=== PATIENT | male | born 1950 | race Caucasian/White ===

== ENCOUNTER 2021-12-15 12:19 | Observation (INO) | payer MEDICARE, OTHER ==
--- NOTE | 2021-12-15 12:35 | XRAY ---
Indication: Right-sided weakness. Slurred speech. Multiple contiguous axial images obtained through the head without contrast. Comparison: None Age-appropriate global atrophy. No acute intracranial hemorrhage, abnormal extra-axial fluid collection, or mass effect. Fourth ventricle is midline without hydrocephalus. Gusman-white matter differentiation preserved. Bony calvarium intact. Visualized paranasal sinuses and mastoid air cells are clear. Impression: Negative CT head without contrast exam.
--- NOTE | 2021-12-15 12:48 | XRAY ---
Indication: Weakness. Comparison: None Portable chest demonstrates normal heart and lungs with incidental right apical calcified granuloma. Bony thorax intact with mild osteopenia and degenerative changes.
[2021-12-15 13:13] LABS: Absolute Neutrophil Ct (ANC) 4.86 (1.4-6.9); Basophil (Absolute #) 0.02 (0-0.4); Eosinophil % 0.5 % (0.00-5.0); Eosinophil (Absolute #) 0.04 (0-0.5); Hematocrit 43.4 % (42-50); Hemoglobin 14.8 gm/dl (12.5-18.0); Lymphocyte (Absolute #) 1.81 (1.0-4.6); Lymphocytes % 24.6 % (24.0-44.0); Mean Cell Volume 88.6 fl (78-100); Mean Corpuscular Hemoglobin 30.2 pg (26-32); Mean Corpuscular Hgb Concent. 34.1 g/dl (32-36); Mean Platelet Volume 9.2 fl (7.5-11.0); Monocyte (Absolute #) 0.64 (0.0-1.3); Monocytes % 8.7 % (0.0-12.0); Neutrophil % 65.9 % (36.0-66.0); PROTIME 11.8 SECONDS (9.4-12.5); Platelet Count 202 K/mm3 (150-450); Red Cell Distribution Width 13.4 % (11.5-14.0); White Blood Count 7.4 K/mm3 (4.0-10.5)
[2021-12-15 13:16] LABS: ALBUMIN 4.6 g/dL (3.5-5.0); ALKALINE PHOSPHATASE 41 U/L (38-126); ANION GAP 12.3 MEQ/L (5-15); BLOOD UREA NITROGEN 18 mg/dL (9-20); CHLORIDE 109 mmol/L (98-107); Calcium 9.6 mg/dL (8.4-10.2); Carbon Dioxide 22 mmol/L (22-30); Creatinine 1 0.95 mg/dL (0.66-1.25); EST GLOMERULAR FILTRATION RATE > 60.0 ML/MIN; Glucose 133 mg/dL (74-106); Potassium 3.8 mmol/L (3.5-5.1); SGOT/AST 31 U/L (17-59); SGPT/ALT 32 U/L (0-50); SODIUM 139 mmol/L (137-145); Total Protein 7.4 g/dL (6.3-8.2)
--- NOTE | 2021-12-15 14:19 | ERPHSYRPT ---
- History of Present Illness Time Seen by Provider: 12/15/21 12:35 Source: patient Exam Limitations: no limitations Patient Subjective Stated Complaint: Weakness-right sided Triage Nursing Assessment: Patient brought into ED via EMS and transferred self to bed. Patient A+O X3. Patient's skin pink, warm and dry. Patient states 30 min prior he was walking at work when his speech became slurred and he had right sided weakness to right leg and arm. Patient states he thought his blood sugar was low and drank a coke. Upon EMS arriving BS 120. Patient's right sided weakness and slurred speach has resolved. Patient denies pain or discomfort. Physician History: Patient is a 71-year-old diabetic who presents with 30-minute history of weakness in the right arm and leg with slurred speech. He attempted to raise his blood sugar without it being checked and was improving by the time EMS got there who found a blood sugar of 120 he is doing better on arrival. Timing/Duration: today Severity: moderate Character of Deficits: new weakness, impaired swallowing Baseline/Normal Cognition: alert oriented x 3 Current Cognition: alert oriented x 3 Baseline Gait: walks w/o assistance Associated Symptoms: denies symptoms Allergies/Adverse Reactions: No Known Drug Allergies Allergy (Verified 12/15/21 12:29) Home Medications: Benazepril HCl [Lotensin] 5 mg PO DAILY 07/20/17 [History] Lovastatin 20 mg PO DAILY 07/20/17 [History] Metformin HCl 500 mg [Glucophage 500 MG] 500 mg PO BIDWM 07/20/17 [History] Hx Influenza Vaccination/Date Given: No Hx Pneumococcal Vaccination/Date Given: No Immunizations Up to Date: Yes Travel Risk - International Travel Have you traveled outside of the country in past 3 weeks: No - Coronavirus Screening Are you exhibiting any of the following symptoms?: No Close contact with a COVID-19 positive Pt in past 14-21 Days: No - Vaccine Status Have you recieved a Covid-19 vaccination: Yes 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: [employer] - Review of Systems Constitutional: No Fever, No Chills Eyes: No Symptoms Ears, Nose, & Throat: No Symptoms Respiratory: No Cough, No Dyspnea Cardiac: No Chest Pain, No Edema, No Syncope Abdominal/Gastrointestinal: No Abdominal Pain, No Nausea, No Vomiting, No Diarrhea Genitourinary Symptoms: No Dysuria Musculoskeletal: No Back Pain, No Neck Pain Skin: No Rash Neurological: Speech Changes, No Dizziness, No Focal Weakness, No Sensory Changes Psychological: No Symptoms Endocrine: No Symptoms All Other Systems: Reviewed and Negative - Past Medical History Pertinent Past Medical History: Yes Neurological History: No Pertinent History ENT History: No Pertinent History Cardiac History: High Cholesterol, Hypertension Respiratory History: No Pertinent History Endocrine Medical History: Diabetes Type II Musculoskeletal History: Osteoarthritis GI Medical History: No Pertinent History, GERD History: No Pertinent History Psycho-Social History: No Pertinent History Male Reproductive Disorders: No Pertinent History - Past Surgical History Past Surgical History: No Neuro Surgical History: No Pertinent History Cardiac: No Pertinent History Respiratory: No Pertinent History Gastrointestinal: No Pertinent History Genitourinary: No Pertinent History Musculoskeletal: No Pertinent History Male Surgical History: No Pertinent History - Social History Smoking Status: Current every day smoker How long have you smoked: years Exposure to second hand smoke: Yes Drug Use: none Patient Lives Alone: No - Nursing Vital Signs Nursing Vital Signs: Initial Vital Signs Temperature 98.7 F 12/15/21 12:30 Pulse Rate 51 L 12/15/21 12:30 Respiratory Rate 18 12/15/21 12:30 Blood Pressure 173/79 12/15/21 12:30 O2 Sat by Pulse Oximetry 95 12/15/21 12:30 Pain Scale Pain Intensity 0 - Roberto Coma Scale Best Eye Response ([place]): (4) open spontaneously Best Verbal Response (Roberto): (5) oriented Best Motor Response (Roberto): (6) obeys commands Roberto Total: 15 - Physical Exam General Appearance: no apparent distress, alert Eye Exam: bilateral eye: PERRL, EOMI Ears, Nose, Throat Exam: normal ENT inspection, moist mucous membranes Neck Exam: normal inspection, non-tender, supple Respiratory: normal breath sounds, lungs clear, airway intact, No respiratory distress Cardiovascular: regular rate/rhythm, No edema Gastrointestinal: soft, No tenderness, No distention Back Exam: normal inspection Extremity Exam: normal inspection, No pedal edema 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, 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 Coordination/Gait: normal finger to nose, normal gait Motor/Sensory: no motor deficit, no sensory deficit Skin Exam: normal color, warm, dry, No rash SpO2 Interpretation: normal SpO2: 93 O2 Delivery: Room Air - Course Nursing assessment & vital signs reviewed: Yes EKG Interpreted by Me: RATE (80), Sinus Rhythm (With multiple PVCs), NORMAL AXIS, Non-specific ST Changes - Radiology Exams Chest X-ray Interpretation: Reviewed by me - CT Exams Head CT Interpretation: Other (No bleeding no shift) Ordered Tests: Active Orders 24 hr Category Date Time Status Clean Catch Urine Specimen STAT Care 12/15/21 12:23 Active EKG-ER Only STAT Care 12/15/21 12:23 Active IV Insertion STAT Care 12/15/21 12:23 Active NPO (ED) STAT Care 12/15/21 12:23 Active NPO (ED) STAT Care 12/15/21 12:56 Active Tele-Health Consult ROUTINE Cons 12/15/21 12:56 Active CHEST 1 VIEW (PORTABLE) Stat Exams 12/15/21 12:24 Completed HEAD WITHOUT CONTRAST [CT] Stat Exams 12/15/21 12:21 Completed CBC W DIFF Stat Lab 12/15/21 12:56 Completed CMP Stat Lab 12/15/21 12:56 Completed ETHYL ALCOHOL Stat Lab 12/15/21 12:56 Completed PT INR [PROTIME WITH INR] Stat Lab 12/15/21 12:56 Completed TROPONIN Q3H Lab 12/15/21 12:30 Ordered TROPONIN Q3H Lab 12/15/21 15:30 Ordered TROPONIN Q3H Lab 12/15/21 18:30 Ordered TROPONIN Q3H Lab 12/15/21 21:30 Ordered TROPONIN Q3H Lab 12/16/21 00:30 Ordered UA W/RFX UR CULTURE Stat Lab 12/15/21 13:59 Ordered Urine Triage Profile Stat Lab 12/15/21 12:33 Ordered Lab/Rad Data: Laboratory Result Diagrams 12/15/21 12:56 12/15/21 12:56 Laboratory Results 12/15/21 12/15/21 12/15/21 Range/Units 12:56 12:56 12:56 WBC (4.0-10.5) K/mm3 RBC (4.1-5.6) M/mm3 Hgb (12.5-18.0) gm/dl Hct (42-50) % MCV (78-100) fl MCH (26-32) pg MCHC (32-36) g/dl RDW (11.5-14.0) % Plt Count (150-450) K/mm3 MPV (7.5-11.0) fl Gran % (36.0-66.0) % Eos # (Auto) (0-0.5) Absolute Lymphs (auto) (1.0-4.6) Absolute Monos (auto) (0.0-1.3) Lymphocytes % (24.0-44.0) % Monocytes % (0.0-12.0) % Eosinophils % (0.00-5.0) % Basophils % (0.0-0.4) % Absolute Granulocytes (1.4-6.9) Basophils # (0-0.4) PT 11.8 (9.4-12.5) SECONDS INR 1.00 (0.8-3.0) Sodium 139 (137-145) mmol/L Potassium 3.8 (3.5-5.1) mmol/L Chloride 109 H (98-107) mmol/L Carbon Dioxide 22 (22-30) mmol/L Anion Gap 12.3 (5-15) MEQ/L BUN 18 (9-20) mg/dL Creatinine 0.95 (0.66-1.25) mg/dL Estimated GFR > 60.0 ML/MIN Glucose 133 H (74-106) mg/dL Calcium 9.6 (8.4-10.2) mg/dL Total Bilirubin 0.60 (0.2-1.3) mg/dL AST 31 (17-59) U/L ALT 32 (0-50) U/L Alkaline Phosphatase 41 (38-126) U/L Serum Total Protein 7.4 (6.3-8.2) g/dL Albumin 4.6 (3.5-5.0) g/dL Ethyl Alcohol < 10 (0-10) mg/dL 12/15/21 Range/Units 12:56 WBC 7.4 (4.0-10.5) K/mm3 RBC 4.90 (4.1-5.6) M/mm3 Hgb 14.8 (12.5-18.0) gm/dl Hct 43.4 (42-50) % MCV 88.6 (78-100) fl MCH 30.2 (26-32) pg MCHC 34.1 (32-36) g/dl RDW 13.4 (11.5-14.0) % Plt Count 202 (150-450) K/mm3 MPV 9.2 (7.5-11.0) fl Gran % 65.9 (36.0-66.0) % Eos # (Auto) 0.04 (0-0.5) Absolute Lymphs (auto) 1.81 (1.0-4.6) Absolute Monos (auto) 0.64 (0.0-1.3) Lymphocytes % 24.6 (24.0-44.0) % Monocytes % 8.7 (0.0-12.0) % Eosinophils % 0.5 (0.00-5.0) % Basophils % 0.3 (0.0-0.4) % Absolute Granulocytes 4.86 (1.4-6.9) Basophils # 0.02 (0-0.4) PT (9.4-12.5) SECONDS INR (0.8-3.0) Sodium (137-145) mmol/L Potassium (3.5-5.1) mmol/L Chloride (98-107) mmol/L Carbon Dioxide (22-30) mmol/L Anion Gap (5-15) MEQ/L BUN (9-20) mg/dL Creatinine (0.66-1.25) mg/dL Estimated GFR ML/MIN Glucose (74-106) mg/dL Calcium (8.4-10.2) mg/dL Total Bilirubin (0.2-1.3) mg/dL AST (17-59) U/L ALT (0-50) U/L Alkaline Phosphatase (38-126) U/L Serum Total Protein (6.3-8.2) g/dL Albumin (3.5-5.0) g/dL Ethyl Alcohol (0-10) mg/dL - Progress Progress: improved Progress Note: 12/15/21 14:20 Patient is essentially was normal by the time the exam was done in the ER we did consult teleneurology they recommended an inpatient admission and work-up for TIA. Discussed with Dr.: Alesia Seymour - Departure Departure Disposition: In-patient Admission Clinical Impression: TIA (transient ischemic attack) Condition: Stable Critical Care Time: Yes Critical Care Time(excluding separately billable procedures): Critical 30-74 mins Referrals: ROXANNA STILL MD [Primary Care Provider] - Follow up/PCP as directed
[2021-12-15] MEDS ORDERED: PLAVIX 75 MG Tablet PO ONE (14:31)
[2021-12-15] MEDS ORDERED: PLAVIX 75 MG Tablet ONE (14:34)
[2021-12-15] MEDS: Sodium Chloride 0.9% 1000 ML 1,000 ML IV SCH ×2 (14:36→18:37)
[2021-12-15] MEDS ORDERED: BABY ASPIRIN 81 MG CHEW ONE (14:37)
[2021-12-15] MEDS ORDERED: BABY ASPIRIN 81 MG CHEW PO ONE (14:39)
[2021-12-15] MEDS ORDERED: Zofran 4 MG/2 ML VIAL IV ONE (15:01)
[2021-12-15] MEDS ORDERED: Zofran 4 MG/2 ML VIAL ONE (15:01)
[2021-12-15 15:14] LABS: INFLUENZA A NEGATIVE (NEGATIVE); INFLUENZA B NEGATIVE (NEGATIVE); RESPIRATORY SYNCTIAL VIRUS NEGATIVE (Negative); SARS-CoV-2 Xpert Express NEGATIVE (NEGATIVE)
[2021-12-15 15:19] LABS: Bacteria RARE /HPF (NEGATIVE); WBC 0-2 /HPF (0-5)
[2021-12-15 15:29] LABS: Appearance CLEAR (CLEAR); Bilirubin NEGATIVE (NEGATIVE); Glucose 100 mg/dL (NEGATIVE); Ketones NEGATIVE (NEGATIVE)
[2021-12-15 15:30] LABS: Nitrite NEGATIVE (NEGATIVE); Ph 6.5 (5-6); Protein,Urine Dip NEGATIVE (Negative); RBC NEGATIVE Ery/ul (0-5); Urobilinogen 0.2 mg/dL (0-1)
[2021-12-15 15:35] LABS: Dipstick done @ ? MAIN LAB
--- NOTE | 2021-12-15 16:27 | XRAY ---
Indication: Right sided weakness. Slurred speech. Conventional contrast enhanced CTA neck performed using 100 cc Isovue 370 contrast. Two-dimensional sagittal and coronal reformatted images obtained. Additional 3-dimensional reformatted images obtained using a separate workstation. Comparison: None Visualized aortic arch is mildly arteriosclerotic. Normal branching right brachiocephalic, left common carotid, and left subclavian arteries with very minimal calcifications at their origins. Examination of the right carotid circulation demonstrates widely patent common carotid artery and bulb. There is minimal/mild heterogeneous plaquing at the origin of the external carotid artery producing less than 50% stenosis. Very minimal heterogeneous plaquing in the proximal internal carotid artery producing less than 25% stenosis. Examination of the left carotid circulation demonstrates widely patent common carotid, carotid bulb, and external carotid arteries. Very minimal heterogeneous plaquing at the origin of the internal carotid artery producing less than 25% stenosis. Vertebral arteries are widely patent with the left slightly larger in caliber. Visualized soft tissues are unremarkable. Thyroid gland enhances homogeneously. Supra and infraglottic airway widely patent. Lung apices demonstrates pulmonary emphysema. Osseous structures intact with mild osteopenia and minimal/mild multilevel degenerative spondylosis. Impression: 1. Minimal/mild arteriosclerotic plaquing bilaterally as detailed. Greatest extent origin right external carotid artery producing less than 50% stenosis. 2. Normal CTA vertebral arteries. 3. Incidental pulmonary emphysema, osteopenia, and multilevel degenerative spondylosis.
--- NOTE | 2021-12-15 16:29 | XRAY ---
Indication: Right sided weakness. Slurred speech. Conventional contrast enhanced CTA head performed using 100 cc Isovue 370 contrast. Two-dimensional sagittal and coronal reformatted images obtained. Additional 3-dimensional reformatted images obtained using a separate workstation. Comparison: None Distal internal carotid arteries are bilaterally symmetric with minimal scattered arteriosclerotic calcifications involving both parasellar segments. No critical stenosis, obstruction, or AV malformation. Normal carotid terminus with normal branching A1 and M1 segments bilaterally. More distal anterior cerebral and middle cerebral arteries are normal in CTA appearance. Posterior circulation demonstrates normal CTA appearance to the basilar, left/right posterior cerebral, and left/right superior cerebellar arteries. Venous drainage/sinuses are unremarkable. No abnormal enhancing intra-or extra-axial mass. Impression: Minimal arteriosclerotic calcifications parasellar segments of both internal carotid arteries without critical stenosis/obstruction. Remaining CTA head with contrast exam is negative.
[2021-12-15 19:52] LABS: Amphetamine,Urine NEGATIVE (NEGATIVE); Barbiturate,Urine NEGATIVE (NEGATIVE); Benzodiazepine,Urine NEGATIVE (NEGATIVE); Cocaine,Urine NEGATIVE (NEGATIVE); Methadone,Urine NEGATIVE (NEGATIVE); Opiate,Urine NEGATIVE (NEGATIVE); PCP,Urine NEGATIVE (NEGATIVE); THC,Urine NEGATIVE (NEGATIVE)
[2021-12-15 20:31] LABS: T4 (Thyroxine) 6.28 ug/dL (5.53-10.96)
[2021-12-15] MEDS ORDERED: Lotensin 10 MG PO SCH (22:00)
[2021-12-15] MEDS ORDERED: NORVASC 5 MG PO SCH (22:00)
[2021-12-16 03:48] LABS: ALBUMIN 3.9 g/dL (3.5-5.0); ALKALINE PHOSPHATASE 40 U/L (38-126); ANION GAP 12.3 MEQ/L (5-15); BLOOD UREA NITROGEN 15 mg/dL (9-20); CHLORIDE 107 mmol/L (98-107); Calcium 8.8 mg/dL (8.4-10.2); Carbon Dioxide 24 mmol/L (22-30); Creatinine 1 1.01 mg/dL (0.66-1.25); EST GLOMERULAR FILTRATION RATE > 60.0 ML/MIN; Glucose 114 mg/dL (74-106); Potassium 4.2 mmol/L (3.5-5.1); SGOT/AST 26 U/L (17-59); SGPT/ALT 30 U/L (0-50); SODIUM 139 mmol/L (137-145); Total Protein 6.3 g/dL (6.3-8.2)
[2021-12-16] MEDS: Sodium Chloride 0.9% 1000 ML 1,000 ML IV SCH (04:27)
[2021-12-16 04:28] LABS: Risk Ratio 4.3
[2021-12-16 05:14] LABS: Absolute Neutrophil Ct (ANC) 4.19 (1.4-6.9); Basophil (Absolute #) 0.02 (0-0.4); Eosinophil % 0.8 % (0.00-5.0); Eosinophil (Absolute #) 0.05 (0-0.5); Hematocrit 42.4 % (42-50); Hemoglobin 14.2 gm/dl (12.5-18.0); Lymphocyte (Absolute #) 1.62 (1.0-4.6); Lymphocytes % 24.7 % (24.0-44.0); Mean Cell Volume 89.8 fl (78-100); Mean Corpuscular Hemoglobin 30.1 pg (26-32); Mean Corpuscular Hgb Concent. 33.5 g/dl (32-36); Mean Platelet Volume 9.2 fl (7.5-11.0); Monocyte (Absolute #) 0.69 (0.0-1.3); Monocytes % 10.5 % (0.0-12.0); Neutrophil % 63.7 % (36.0-66.0); Platelet Count 176 K/mm3 (150-450); Red Blood Count 4.72 M/mm3 (4.1-5.6); Red Cell Distribution Width 13.3 % (11.5-14.0); White Blood Count 6.6 K/mm3 (4.0-10.5)
[2021-12-16] MEDS ORDERED: Glucotrol 5 MG PO SCH (08:00)
--- NOTE | 2021-12-16 08:42 | XRAY ---
Indication: Slurred speech. Right-sided weakness. Sagittal, coronal, and axial MRI brain performed prior to and following 15 cc Dotarem contrast. Comparison: None Age-appropriate global atrophy. Diffusion images demonstrates 5 mm focus of restricted signal periventricular white matter favoring acute micro-ischemia. No acute intracranial hemorrhage, abnormal extra-axial fluid collection, or mass effect. Following gadolinium, there is no abnormal enhancing intra or extra-axial mass. Fourth ventricle is midline without hydrocephalus. 7/8 cranial nerve complex bilaterally symmetric. Normal flow void signal within the major intracerebral circulation. Normal appearing craniocervical junction and sella turcica. Paranasal sinuses are clear. Incidental 17 x 8 mm scalp lipoma just posterior to right ear. Impression: 1. 5 mm acute micro-ischemia left periventricular white matter. No acute hemorrhage or mass effect. 2. Incidental small right scalp lipoma. 3. Remaining MRI brain with contrast exam is negative.
[2021-12-16] MEDS ORDERED: ECOTRIN 81 MG PO SCH (10:00)
[2021-12-16] MEDS ORDERED: Ecotrin 325 MG PO SCH (10:00)
[2021-12-16] MEDS ORDERED: ZOCOR 20MG PO SCH (10:00)
[2021-12-16] MEDS ORDERED: PLAVIX 75 MG Tablet PO SCH (10:00)
[2021-12-16] MEDS ORDERED: NON-FORMULARY ITEM (Lovastatin [Lovastatin] 20 MG Tablet) PO SCH (10:00)
[2021-12-16 15:48] VITALS: BP 125/60; PULSE 51; O2SAT 98
[2021-12-16] MEDS ORDERED: NON-FORMULARY ITEM (Fenofibrate [Fenofibrate] 160 MG Tablet) PO SCH (22:00)
[2021-12-16] MEDS ORDERED: Tricor 145 MG PO SCH (22:00)
--- NOTE | 2021-12-17 10:21 | CONS ---
CONSULT DATE: 12/16/2021 BRIEF HISTORY: This is a 71-year-old male who was seen for cardiac arrhythmia and history of transient ischemic attack. The patient presented initially on 12/04/2021 complaining of heaviness involving the right upper extremity. He underwent MRI of the brain which showed micro-ischemia in the left ventricular white matter. He had a CT scan of the carotids, which did not show any significant disease. At the time of examinations, the patient's neurological symptoms were improved. While being monitored, he was noted to be bradycardic but remained asymptomatic. He was noted to also have some PVC's. His troponin I's are within normal range. He has never had myocardial infarction or heart failure. He denies any chest pains. He is a fairly active individual. 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 There is no paroxysmal nocturnal dyspnea or orthopnea. No definite syncopal attacks. CARDIAC RISK FACTORS: Positive for diabetes. He has a history of hypertension. He still smokes about two packs of cigarettes a day. He has hyperlipidemia. FAMILY HISTORY: Positive for coronary artery disease. A brother had myocardial infarction in his late 50's. 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 No chronic headache. RESPIRATORY: No chronic cough. No hemoptysis. GI: He has a history of reflux. No nausea. No vomiting. No diarrhea or constipation. : No dysuria or hematuria. No incontinence. PERIPHERAL VASCULAR: No history of deep vein thrombosis or claudication. HEMATOLOGY: No history of blood dyscrasia. MUSCULOSKELETAL: No significant degenerative joint disorder. SKIN: No active dermatological problems. ENDOCRINE: No history of thyroid disorder. MEDICATIONS: His current medications are amlodipine 5 mg a day, aspirin 81 mg a day, benazepril 20 mg a day, Plavix 75 mg a day, Fenofibrate 125 mg daily, glipizide 5 mg a day, simvastatin 20 mg a day. PAST SURGICAL HISTORY: Unremarkable. 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 No significant ETOH use. PHYSICAL EXAMINATION: The blood pressure 120/70 with a heart rate of 55, respirations about 14. The patient was ambulated. Heart rate went up to about 90 with PVC's. HEENT: Nonicteric sclera. Pinkish conjunctivae. NECK: No significant JVD. However, external jugulars are prominent. CHEST: The breath sounds are clear bilaterally. No rhonchi. CARDIAC: Heart tones are normal. The rhythm is regular with occasional premature beats. There is a grade 2/6 mid systolic murmur. ABDOMEN: Soft with normal bowel sounds. No bruits. EXTREMITIES: No significant edema with decreased distal pulses. LAB DATA AND DIAGNOSTIC TESTS: The EKG done on 12/15/2021 showed normal sinus rhythm with PVC's, unifocal and monomorphic. There is poor R-progression. Laboratory data the troponin I is within normal. The creatinine is 1.0 with GFR greater than 60. Serum electrolytes were normal. Liver enzymes are normal. TSH 2.5. Troponin I less than 0.012. IMPRESSION: 1) The patient had recent transient ischemic attack and has fully recovered with no neurological deficits and is currently aspirin and Plavix. Continue with statin therapy. 2) PVC's. 3) Multiple cardiovascular risk factors. We are going to go ahead and schedule him for a screening coronary calcium score. The patient was ambulated and did not show any evidence of chronotropic incompetence. However, he does have a lot of PVC's. I would avoid any negative chronotropic agent to manage the hypertension. I would add low dose diuretics. I will follow him up in the office.
--- NOTE | 2021-12-18 09:27 | PCM.SSS ---
History of Present Illness - Chief Complaint Chief Complaint: TIA Date: 12/16/21 History of Present Illness: is a 71 year old male. Pt. presented to ER with new sudden onset of right sided weakness and slurred speech, this was resolving upon ER presentation, and pt. admitted for further evaluation. - Review of Systems Constitutional: No Fever, No Chills Eyes: No Symptoms Ears, Nose, & Throat: No Symptoms Respiratory: No Cough, No Short Of Breath Cardiac: No Chest Pain, No Edema, No Syncope Abdominal/Gastrointestinal: No Abdominal Pain, No Nausea, No Vomiting, No Diarrhea Genitourinary Symptoms: No Dysuria Musculoskeletal: No Back Pain, No Neck Pain Skin: No Rash Neurological: Gait Changes, Paralysis (right side weakness of both arm and leg), Speech Changes Psychological: No Symptoms Endocrine: No Symptoms Hematologic/Lymphatic: No Symptoms Immunological/Allergic: No Symptoms Medications & Allergies Home Medications: Home Medication List Benazepril HCl [Lotensin] 20 mg PO HS 07/20/17 [History Confirmed 12/15/21] Lovastatin 20 mg PO DAILY 07/20/17 [History Confirmed 12/15/21] Metformin HCl 500 mg [Glucophage 500 MG] 500 mg PO BIDWM 07/20/17 [History Confirmed 12/15/21] Amlodipine Besylate 5 mg [Norvasc 5 mg] 5 mg PO HS 12/15/21 [History Confirmed 12/15/21] Fenofibrate 160 mg PO HS 12/15/21 [History Confirmed 12/15/21] Glipizide 5 mg [Glucotrol 5 MG] 5 mg PO DAILY 12/15/21 [History Confirmed 12/15/21] Aspirin EC 81 mg [Ecotrin 81 mg] 81 mg PO DAILY 30 Days #30 tablet 12/16/21 [Rx] Chlorthalidone 12.5 mg PO DAILY #30 tablet 12/16/21 [Rx] Clopidogrel Bisulfate 75 mg [PLAVIX 75 MG Tablet] 75 mg PO DAILY 30 Days #30 tablet 12/16/21 [Rx] Allergies/Adverse Reactions: Allergies Allergy/AdvReac Type Severity Reaction Status Date / Time No Known Drug Allergies Allergy Verified 12/15/21 12:29 - Past Medical History Past Medical History: Yes Neurological History: TIA ENT History: No Pertinent History Cardiac History: High Cholesterol, Hypertension Respiratory History: No Pertinent History Endocrine Medical History: Diabetes Type II Musculoskelatal History: Osteoarthritis GI Medical History: GERD History: No Pertinent History Pyscho-Social History: No Pertinent History Male Reproductive Disorders: No Pertinent History - Past Surgical History Past Surgical History: No Neuro Surgical History: No Pertinent History Cardiac History: No Pertinent History Respiratory Surgery: No Pertinent History GI Surgical History: No Pertinent History Genitourinary Surgical Hx: No Pertinent History Musculskeletal Surgical Hx: No Pertinent History Male Surgical History: No Pertinent History - Social History Smoking Status: Current every day smoker How long have you smoked: 54 years Exposure to second hand smoke: Yes Alcohol: None Drug Use: none - Physical Exam General Appearance: no apparent distress, alert Neurologic Exam: alert, oriented x 3, cooperative, normal mood/affect, nml cerebellar function, nml station & gait, sensation nml, No motor deficits Eye Exam: PERRL/EOMI, eyes nml inspection Ears, Nose, Throat Exam: normal ENT inspection, TMs normal, pharynx normal, moist mucous membranes Neck Exam: normal inspection, non-tender, supple, full range of motion Respiratory Exam: normal breath sounds, lungs clear, No respiratory distress Cardiovascular Exam: regular rate/rhythm, normal heart sounds, normal peripheral pulses Gastrointestinal/Abdomen Exam: soft, normal bowel sounds, No tenderness, No mass Back Exam: normal inspection, normal range of motion, No CVA tenderness, No vertebral tenderness Extremity Exam: normal inspection, normal range of motion, pelvis stable Skin Exam: normal color, warm, dry, No rash Lymphatic Exam: No adenopathy Results - Radiology Impressions Radiology Exams & Impressions: Radiology Procedures Category Date Time Status ECHO W/2D AND DOPPLER [US] Routine Exams 12/16/21 16:23 Taken MRI BRAIN W & W/O CONTRAST [MRI] Stat Exams 12/16/21 14:05 Completed Assessment/Plan (1) TIA (transient ischemic attack) Status: Acute Code(s): G45.9 - TRANSIENT CEREBRAL ISCHEMIC ATTACK, UNSPECIFIED (2) CVA (cerebral vascular accident) Status: Acute Code(s): I63.9 - CEREBRAL INFARCTION, UNSPECIFIED Hospital Summary - Hospital Course Hospital Course: Pt. admitted for further evaluation, CTA of carotids showed no significant rate limiting flow, MRI of brain did show a small water shed infarct of acute status approximately 4mm in size. Cardiology consulted for bradycardia and rapid changes in pulse. Pt. with no residual symptoms and normal echo was discharged to home on appropriate medications. - Vitals & Intake/Output Vital Signs: Vital Signs Temperature 97.9 F 12/16/21 15:47 Pulse Rate 51 L 12/16/21 15:47 Respiratory Rate 16 12/16/21 15:47 Blood Pressure 125/60 12/16/21 15:47 O2 Sat by Pulse Oximetry 98 12/16/21 15:47 Intake & Output: Intake & Output 12/15/21 12/16/21 12/17/21 12/18/21 11:59 11:59 11:59 11:59 Intake Total 1969 1180 Balance 1969 1180 Weight 77 kg - Lab Result Diagrams: 12/16/21 03:40 12/16/21 03:40 - Radiology Exams Ordered Rad Exams-Entire Visit: Radiology Procedures Category Date Time Status ECHO W/2D AND DOPPLER [US] Routine Exams 12/16/21 16:23 Taken MRI BRAIN W & W/O CONTRAST [MRI] Stat Exams 12/16/21 14:05 Completed - Procedures and Test Procedures and Tests throughout Hospitalization: Therapy Orders & Screens 12/15/21 18:20 Smoking Cessation Education ONCE Comment: Diagnosis: TIA Smoking Status: Current every day smoker How long have you smoked: 54 years Have you smoked in the past 12 months: Yes Approximately how many cigarettes per day: 40 Do you dip or chew tobacco: No 12/16/21 18:31 Holter Monitor ONCE Comment: Reason For Exam: Diagnosis: TIA - Discharge Discharge Date: 12/16/21 Disposition: Home, Self-Care Condition: Stable Prescriptions: New Chlorthalidone 12.5 mg PO DAILY #30 tablet Aspirin EC 81 mg [Ecotrin 81 mg] 81 mg PO DAILY 30 Days #30 tablet Clopidogrel Bisulfate 75 mg [PLAVIX 75 MG Tablet] 75 mg PO DAILY 30 Days #30 tablet No Action Metformin HCl 500 mg [Glucophage 500 MG] 500 mg PO BIDWM Benazepril HCl [Lotensin] 20 mg PO HS Lovastatin 20 mg PO DAILY Glipizide 5 mg [Glucotrol 5 MG] 5 mg PO DAILY Fenofibrate 160 mg PO HS Amlodipine Besylate 5 mg [Norvasc 5 mg] 5 mg PO HS Instructions: Transient Ischemic Attack (DC), Going Home on Blood Thinners Additional Instructions: CALL TO MAKE AN APPOINTMENT WITH DR MALDONADO (CARDIOLOGY) IN 2 WEEKS -- THE NUMBER IS [phone] CARDIAC CALCIUM SCORING HAS BEEN SCHEDULED FOR 12/19/2021 @ 0968. PLEASE WEAR LOOSE CLOTHING. NO METAL ON CLOTHING. NO FOOD, BEVERAGES, CAFFEINE, OR SMOKING 4 HOURS PRIOR TO EXAM. MUST PAY $50 AT TIME OF SERVICE. Follow up with: CLAUDY MALDONADO [ACTIVE STAFF] - 2 weeks ROXANNA STILL MD [Primary Care Provider] - 1 Week
--- NOTE | 2021-12-19 11:18 | ECHO ---
Transthoracic echocardiographic examination and color Doppler was done on 12/16/2021. INDICATION: Transient ischemic attack symptoms. IMPRESSION: 1) NO DEFINITE REGIONAL WALL MOTION ABNORMALITY. ESTIMATED GLOBAL LEFT VENTRICULAR EJECTION FRACTION OF AROUND 50 TO 55%. 2) TRACE MITRAL REGURGITATION. 3) MILD TRICUSPID REGURGITATION. RIGHT VENTRICULAR SYSTOLIC PRESSURE OF 37 MM OF MERCURY. 4) MILD LEFT VENTRICULAR HYPERTROPHY. 5) MILDLY DILATED RIGHT SIDE CHAMBERS. The left ventricle is visualized and demonstrated adequate motion of all the segments. Estimated global left ventricular ejection fraction 50 to 55%. There mild left ventricular hypertrophy. The mitral valve is seen and this opens adequately. There is trace mitral regurgitation. Left atrium is normal. The aortic valve is mildly thickened but opens adequately. There is no significant gradient across the left ventricular outflow tract. The right side chambers are mildly dilated. There is mild tricuspid regurgitation. The right ventricular systolic pressure of 37 mm of Mercury.
== END 2021-12-16 19:15 | disposition home or self-care (01) ==
LOC: ED 12:19 → MED SURG 16:11
PROVIDERS: ADMIT Family Medicine; ATTEND Family Medicine
DX: I63.9 Cerebral infarction, unspecified (principal); E11.9 Type 2 diabetes mellitus without complications; I49.3 Ventricular premature depolarization; E78.00 Pure hypercholesterolemia, unspecified; I10 Essential (primary) hypertension; Z79.899 Other long term (current) drug therapy; Z79.01 Long term (current) use of anticoagulants; Z72.0 Tobacco use
CPT/HCPCS: 0241U; 36415; 70450; 70496; 70498; 70553; 71045; 80053; 80061; 80307; 81001; 82607; 82947; 83036; 83605; 83721; 84436; 84443; 84484; 85025; 85610; 93005; 93268; 93306; 96374; 99285; 99291; G0378; G0480; J2405; A9270-GY

== ENCOUNTER 2022-12-10 08:52 | Day surgery (SDC) | payer MEDICARE, OTHER ==
--- NOTE | 2022-12-09 09:17 | HP ---
DATE OF SURGERY: 12/10/2022 HISTORY OF PRESENT ILLNESS: The patient is a 72-year-old man presents with complaints of some heartburn. He had been on some Casandra's at some point. His last colonoscopy was eight years ago. The patient declines colonoscopy at this time. He states there is no nausea, vomiting or diarrhea. However, he states that his chest feels like it is on fire. PAST MEDICAL HISTORY: Hypertension, diabetes, hyperlipidemia, coronary artery disease, transient ischemic attack. PAST SURGICAL HISTORY: None. ALLERGIES: NKDA. MEDICATIONS: Aspirin, amlodipine, metformin, glipizide, Chlorthalidone, benazepril, Fenofibrate, Plavix, lovastatin, Ozempic. FAMILY HISTORY: None. SOCIAL HISTORY: Current smoker. REVIEW OF SYSTEMS: CONSTITUTIONAL: Denies fever or chills. CHEST: Denies shortness of breath. CVS: Denies chest pain. ABDOMEN: Reports upper abdominal pain. PHYSICAL EXAMINATION: GENERAL: No acute distress. CHEST: Nonlabored. No shortness of breath. CVS: Regular rate and rhythm. ABDOMEN: Soft. IMPRESSION: Epigastric pain. PLAN: EGD with Dr. Steven Albert. As dictated by Nai Linares NP.
[2022-12-10] MEDS ORDERED: Lactated Ringers 1,000 ML IV ONE (08:59)
[2022-12-10] MEDS ORDERED: Lactated Ringers 1,000 ML IV SCH (09:00)
[2022-12-10] MEDS ORDERED: DIPRIVAN 200 MG/20 ML IV ONE (10:06)
[2022-12-10] MEDS ORDERED: Xylocaine-Mpf 2% 5 Ml Vial ONE (10:06)
[2022-12-10] MEDS ORDERED: Versed 2 MG/2 ML Injection ONE (10:06)
[2022-12-10 11:41] VITALS: O2SAT 97
[2022-12-10 12:18] VITALS: BP 111/74; PULSE 53
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
== END 2022-12-10 12:00 | disposition home or self-care (01) ==
LOC: SDC 08:52
PROVIDERS: ATTEND Surgery
DX: K21.9 Gastro-esophageal reflux disease without esophagitis (principal); R10.13 Epigastric pain; E11.9 Type 2 diabetes mellitus without complications; K25.9 Gastric ulcer, unspecified as acute or chronic, without hemorrhage or perforation
CPT/HCPCS: 82947; 99100; J2250; J2704

== ENCOUNTER 2024-07-03 12:26 | Emergency (ER) | payer MEDICARE, OTHER ==
[2024-07-03 12:42] VITALS: TEMP 98.1
--- NOTE | 2024-07-03 12:59 | ERPHSYRPT ---
- History of Present Illness Time Seen by Provider: 07/03/24 12:39 Source: patient Exam Limitations: no limitations Patient Subjective Stated Complaint: pt states that starting yesterday he was getting a little dizzy and off balance and today it has gotten worse, pt has a history of a TIA Triage Nursing Assessment: Pt brought self to the ER, hypertensive, denies pain, states that he only gets dizzy when he bends over, losing balance, pulses nor mal, skin n/w/d, denies headache, denies N&V, doesn't appear to be in any distress Physician History: Patient came to the ER for dizziness that started yesterday got worse today. The dizziness gets worse when he bends the head. Right now patient denies any dizziness. No chest pain or shortness of breath. No nausea vomiting diarrhea. No headache. Prior history of TIA. Patient walked normally to the ER. Timing/Duration: yesterday Severity: moderate Deficits: no difficulties Baseline/Normal Cognition: alert oriented x 3 Current Cognition: alert oriented x 3 Baseline Gait: walks w/o assistance Associated Symptoms: other (off balance), No confusion, No fatigue, No loss of consciousness, No nausea, No vomiting, No muscle spasms, No numbness/tingling in legs/feet, No paresthesia, No seizures, No slurred speech, No trouble walking Allergies/Adverse Reactions: No Known Drug Allergies Allergy (Verified 07/03/24 12:41) Home Medications: Benazepril HCl [Lotensin] 20 mg PO HS 07/20/17 [History] Metformin HCl 500 mg [Glucophage 500 MG] 500 mg PO BIDWM 07/20/17 [History] Fenofibrate 160 mg PO DAILY 12/15/21 [History] Glipizide 5 mg [Glucotrol 5 MG] 10 mg PO BID 12/15/21 [History] Chlorthalidone 25 mg PO DAILY 11/16/22 [History] Amlodipine Besylate/Benazepril [Amlodipine-Benazepril 5-20 mg] 1 tab PO DAILY 07/03/24 [History] Aspirin 81 mg PO DAILY 07/03/24 [History] Atorvastatin Calcium 10 mg PO DAILY 07/03/24 [History] Hx Influenza Vaccination/Date Given: No Hx Pneumococcal Vaccination/Date Given: No Travel Risk - International Travel Have you traveled outside of the country in past 3 weeks: No - Emerging Infectious Disease Are you exhibiting symptoms associated with any current EIDs: No - Review of Systems Constitutional: No Fever, No Chills Eyes: No Symptoms Ears, Nose, & Throat: No Symptoms, No Ear Pain, No Ear Discharge Respiratory: No Cough, No Dyspnea Cardiac: No Chest Pain, No Edema, No Syncope Abdominal/Gastrointestinal: No Abdominal Pain, No Nausea, No Vomiting, No Diarrhea Genitourinary Symptoms: No Dysuria Musculoskeletal: No Back Pain, No Neck Pain Skin: No Rash Neurological: Dizziness, No Focal Weakness, No Sensory Changes Psychological: No Symptoms Endocrine: No Symptoms All Other Systems: Reviewed and Negative - Past Medical History Pertinent Past Medical History: Yes Neurological History: TIA ENT History: No Pertinent History Cardiac History: High Cholesterol, Hypertension, Myocardial Infarction ([place]) Respiratory History: No Pertinent History Endocrine Medical History: Diabetes Type II Musculoskeletal History: Osteoarthritis GI Medical History: GERD History: No Pertinent History Psycho-Social History: No Pertinent History Male Reproductive Disorders: No Pertinent History - Past Surgical History Past Surgical History: Yes Neuro Surgical History: No Pertinent History Cardiac: No Pertinent History Respiratory: No Pertinent History Gastrointestinal: No Pertinent History Genitourinary: No Pertinent History Musculoskeletal: No Pertinent History Male Surgical History: No Pertinent History Other Surgical History: colonoscopy - Social History Smoking Status: Current every day smoker How long have you smoked: 54 years Exposure to second hand smoke: Yes Drug Use: none Patient Lives Alone: No - Social Determinants of Health Will the patient participate in the screening: Yes Do you worry about a steady place to live?: No Do you have any problems with any of the following?: No known problems In the past 12 months,have you had to go without utilities?: No Transportation Issues: No Has anyone in your support network made you feel unsafe?: No Have you or anyone in your house had to go without enough: No - Nursing Vital Signs Nursing Vital Signs: Initial Vital Signs Temperature 98.1 F 07/03/24 12:32 Pulse Rate 69 07/03/24 12:32 Respiratory Rate 15 07/03/24 12:32 Blood Pressure 147/81 07/03/24 12:32 O2 Sat by Pulse Oximetry 96 07/03/24 12:32 Pain Scale Pain Intensity 0 - [place] Coma Scale Best Eye Response (Roberto): (4) open spontaneously Best Verbal Response (Roberto): (5) oriented Best Motor Response ([place]): (6) obeys commands Roberto Total: 15 - Physical Exam General Appearance: no apparent distress, alert Eye Exam: bilateral eye: PERRL, EOMI Ears, Nose, Throat Exam: normal ENT inspection, moist mucous membranes Neck Exam: normal inspection, non-tender, supple Respiratory: normal breath sounds, lungs clear, airway intact, No chest tenderness, No respiratory distress Cardiovascular: regular rate/rhythm, normal heart sounds, normal peripheral pulses, No edema Gastrointestinal: soft, No tenderness, No distention Back Exam: normal inspection, normal range of motion, No CVA tenderness, No vertebral tenderness Extremity Exam: normal inspection, No pedal edema 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, oriented x 3, 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 Exam: normal hearing, normal speech, PERRL, tongue midline Coordination/Gait: normal finger to nose, normal gait, positive Romberg's sign, No ABN nose to finger (R), No ABN nose to finger (L) Motor/Sensory: no motor deficit Skin Exam: normal color, warm, dry, No rash SpO2 Interpretation: normal SpO2: 96 O2 Delivery: Room Air (pt swayed backwards when I asked him to stand up with eyes closed) - Course Nursing assessment & vital signs reviewed: Yes Ordered Tests: Active Orders 24 hr Category Date Time Status Rotor Assembler STAT Care 07/03/24 12:53 Active EKG-ER Only STAT Care 07/03/24 12:51 Active IV Insertion STAT Care 07/03/24 12:51 Active NPO (ED) STAT Care 07/03/24 12:51 Active CHEST 1 VIEW (PORTABLE) Stat Exams 07/03/24 12:[address] ANGIOGRAPHY NECK [CT] Stat Exams 07/03/24 12:53 Completed CTA HEAD W AND/OR WO CONTRAST [CT] Routine Exams 07/03/24 13:00 Completed CBC W DIFF Stat Lab 07/03/24 12:50 Completed ETHYL ALCOHOL Stat Lab 07/03/24 12:50 Completed PTT Stat Lab 07/03/24 12:50 Completed TROPONIN Q4H Lab 07/03/24 12:50 Completed TROPONIN Q4H Lab 07/03/24 17:00 Ordered TROPONIN Q4H Lab 07/03/24 21:00 Ordered UA W/RFX UR CULTURE Stat Lab 07/03/24 12:52 Ordered Lab/Rad Data: Laboratory Result Diagrams 07/03/24 12:50 Laboratory Results 07/03/24 07/03/24 07/03/24 Range/Units 12:50 12:50 12:50 WBC (4.23-9.07) x10^3/uL RBC (4.63-6.08) x10^6/uL Hgb (13.7-17.5) g/dL Hct (40.1-51.0) % MCV (79.0-92.2) fL MCH (25.7-32.2) pg MCHC (32.3-36.5) g/dL RDW (11.6-14.4) % Plt Count (163-337) x10^3/uL MPV (9.4-12.4) fL Gran % (34.0-67.9) % Immature Gran % (Auto) (0.001-0.429) % Nucleat RBC Rel Count (0.00-0.2) % Eos # (Auto) (0.04-0.54) x10^3/uL Immature Gran # (Auto) (0.001-0.031) x10^3u/L Absolute Lymphs (auto) (1.32-3.57) x10^3/uL Absolute Monos (auto) (0.30-0.82) x10^3/uL Absolute Nucleated RBC (0.00-0.012) x10^3u/L Lymphocytes % (21.8-53.1) % Monocytes % (5.3-12.2) % Eosinophils % (0.8-7.0) % Basophils % (0.2-1.2) % Absolute Granulocytes (1.78-5.38) x10^3/uL Basophils # (0.01-0.08) x10^3/uL APTT 26.8 (25.1-36.5) SECONDS Troponin I < 0.012 (0.000-0.033) ng/mL Ethyl Alcohol < 10 (0-10) mg/dL 07/03/24 Range/Units 12:50 WBC 8.8 (4.23-9.07) x10^3/uL RBC 4.67 (4.63-6.08) x10^6/uL Hgb 14.0 (13.7-17.5) g/dL Hct 40.8 (40.1-51.0) % MCV 87.4 (79.0-92.2) fL MCH 30.0 (25.7-32.2) pg MCHC 34.3 (32.3-36.5) g/dL RDW 12.8 (11.6-14.4) % Plt Count 224 (163-337) x10^3/uL MPV 8.9 L (9.4-12.4) fL Gran % 74.5 H (34.0-67.9) % Immature Gran % (Auto) 0.7 H (0.001-0.429) % Nucleat RBC Rel Count 0.0 (0.00-0.2) % Eos # (Auto) 0.04 (0.04-0.54) x10^3/uL Immature Gran # (Auto) 0.06 H (0.001-0.031) x10^3u/L Absolute Lymphs (auto) 1.45 (1.32-3.57) x10^3/uL Absolute Monos (auto) 0.66 (0.30-0.82) x10^3/uL Absolute Nucleated RBC 0.00 (0.00-0.012) x10^3u/L Lymphocytes % 16.5 L (21.8-53.1) % Monocytes % 7.5 (5.3-12.2) % Eosinophils % 0.5 L (0.8-7.0) % Basophils % 0.3 (0.2-1.2) % Absolute Granulocytes 6.53 H (1.78-5.38) x10^3/uL Basophils # 0.03 (0.01-0.08) x10^3/uL APTT (25.1-36.5) SECONDS Troponin I (0.000-0.033) ng/mL Ethyl Alcohol (0-10) mg/dL - Progress Progress: improved, re-examined Progress Note: 07/03/24 14:21 Workup shows nothing acute. Patient asymptomatic. Exam unremarkable. I will discharge patient home with meclizine. No acute life or limb threatening condition on discharge. Medical Desision Making - Risk of complications Minimal Risk: Minimal risk of morbidity - Departure Departure Disposition: Home Clinical Impression: Dizziness Condition: Stable Critical Care Time: No Referrals: ROXANNA STILL MD [Primary Care Provider] - Follow up/PCP as directed Prescriptions: Meclizine HCl 25 mg [Antivert 25 mg] 25 mg PO TID PRN #15 tablet PRN Reason: Dizziness
[2024-07-03 13:10] VITALS: RESP 17
[2024-07-03 13:10] LABS: Absolute Neutrophil Ct (ANC) 6.53 x10^3/uL (1.78-5.38); BASOPHIL % 0.3 % (0.2-1.2); Basophil (Absolute #) 0.03 x10^3/uL (0.01-0.08); Eosinophil % 0.5 % (0.8-7.0); Eosinophil (Absolute #) 0.04 x10^3/uL (0.04-0.54); Hematocrit 40.8 % (40.1-51.0); IMMATURE GRAN # 0.06 x10^3u/L (0.001-0.031); IMMATURE GRAN % 0.7 % (0.001-0.429); Lymphocyte (Absolute #) 1.45 x10^3/uL (1.32-3.57); Lymphocytes % 16.5 % (21.8-53.1); Mean Cell Volume 87.4 fL (79.0-92.2); Mean Corpuscular Hgb Concent. 34.3 g/dL (32.3-36.5); Mean Platelet Volume 8.9 fL (9.4-12.4); Monocyte (Absolute #) 0.66 x10^3/uL (0.30-0.82); Monocytes % 7.5 % (5.3-12.2); Neutrophil % 74.5 % (34.0-67.9); Platelet Count 224 x10^3/uL (163-337); Red Blood Count 4.67 x10^6/uL (4.63-6.08); Red Cell Distribution Width 12.8 % (11.6-14.4); White Blood Count 8.8 x10^3/uL (4.23-9.07)
--- NOTE | 2024-07-03 13:52 | XRAY ---
Indication: Dizziness. TIA. Conventional contrast enhanced CTA neck performed using 80 cc Isovue 370 contrast. 2-D sagittal and coronal reformatted images obtained. Additional 3-D reformatted images obtained using separate workstation. Comparison: December 15, 2021 Visualized aortic arch again a mildly arteriosclerotic without aneurysm/dissection. Normal branch right brachiocephalic, left common carotid, and left subclavian arteries again with very minimal calcifications at their origins. Examination right carotid circulation again demonstrates widely patent common carotid. Carotid bulb again demonstrates minimal calcifications unchanged. Grossly stable mild heterogeneous plaquing origin external carotid artery producing less than 50% stenosis. Proximal internal carotid artery now demonstrates minimal eccentric heterogeneous plaquing without critical stenosis. Examination left carotid circulation again demonstrates widely patent common carotid, carotid bulb, and external carotid arteries. Grossly stable minimal heterogeneous plaquing origin internal carotid artery without critical stenosis/obstruction. Vertebral arteries again normal in CTA appearance with the left slightly larger in caliber. Visualized soft tissues again negative for pathologic lymphadenopathy. Thyroid gland enhances homogeneously. Supra-and infraglottic airway widely patent. Normal epiglottis. Lung apices again demonstrates pulmonary emphysema. Besides osseous structures intact again with osteopenia and minimal/mild degenerative changes throughout the cervical spine. Impression: 1. Again minimal/mild scattered arteriosclerotic disease bilaterally as detailed. Again greatest extent origin right external carotid artery. Continued negative for critical stenosis/obstruction. 2. Continued normal CTA vertebral arteries. 3. Again chronic findings including pulmonary emphysema, osteopenia, and multilevel degenerative spondylosis.
--- NOTE | 2024-07-03 13:58 | XRAY ---
Indication: Dizziness. TIA. Initial CT head performed without contrast. Then conventional contrast enhanced CTA head performed using 80 cc Isovue 370 contrast. 2-D sagittal and coronal reformatted images obtained. Additional 3-D reformatted images obtained using separate workstation. Comparison: December 15, 2021 CT head without contrast again demonstrates age-appropriate global atrophy. No acute intracranial hemorrhage, abnormal extra-axial fluid collection, or mass effect. Fourth ventricle is midline without hydrocephalus. [place]-white matter differentiation preserved. Bony calvarium intact. CTA head again demonstrates minimal arteriosclerotic calcifications in both parasellar internal carotid arteries without critical stenosis/obstruction or AV malformation. Normal carotid terminus with normal branching A1 and M1 segments bilaterally. More distal anterior cerebral and middle cerebral arteries are normal in CTA appearance. Posterior circulation again demonstrates normal CTA appearance to the basilar, left/right posterior cerebral, and left/right superior cerebellar arteries. Venous drainage/sinus again unremarkable. No abnormal enhancing intra or extra-axial mass. Impression: No change since prior CT/CTA head exams. Continue negative CT head without contrast exam. CTA head demonstrates grossly stable minimal calcifications in both internal carotid arteries without critical stenosis/obstruction. Remaining CTA head with contrast exam continues to be negative.
[2024-07-03 14:05] VITALS: BP 135/66; PULSE 54
--- NOTE | 2024-07-03 14:09 | XRAY ---
Indication: Dizziness. Comparison: December 15, 2021 Portable chest less inflated crowding lung bases. Remaining heart and lungs unremarkable again with tiny right upper lobe calcified granuloma. Bony thorax intact again with osteopenia mild Genter changes. Impression: Nonacute underinflated chest with chronic features.
[2024-07-03 14:23] VITALS: O2SAT 96
== END 2024-07-03 14:29 | disposition home or self-care (01) ==
LOC: ED 12:26
DX: R42 Dizziness and giddiness (principal); E78.5 Hyperlipidemia, unspecified; I10 Essential (primary) hypertension; E11.9 Type 2 diabetes mellitus without complications; Z79.84 Long term (current) use of oral hypoglycemic drugs; Z79.899 Other long term (current) drug therapy; Z72.0 Tobacco use; Z86.73 Personal history of transient ischemic attack (TIA), and cerebral infarction without residual deficits
CPT/HCPCS: 36000; 36415; 70496; 70498; 71045; 82077; 84484; 85025; 85730; 93005; 93041; 99284

== ENCOUNTER 2024-08-16 15:30 | Observation (INO) | payer MEDICARE, OTHER ==
[2024-08-16] MEDS ORDERED: Reglan 10 MG/2 ML ONE (15:49)
--- NOTE | 2024-08-16 16:03 | ERPHSYRPT ---
- History of Present Illness Time Seen by Provider: 08/16/24 15:43 Historian: patient, family Exam Limitations: no limitations Physician History: 74 years old male with history of hypertension, hyperlipidemia, diabetes mellitus, tobacco abuse, COPD presented in the ER with complaint of left-sided chest soreness. Patient reports dull aching pain off and on with activity and better with resting. Does report having some shortness of breath with exertion as well. Has chronic smoker's cough which is not any worse than usual. Patient also reports having ear infection 7 weeks ago which was treated and since then has issues with the balance and gets really wobbly and did hit curtis few times. Denies any visual disturbance but what he has at his baseline, difficulty speech, numbness tingling or focal weakness. Aspirin Treatment Today: unknown Allergies/Adverse Reactions: No Known Drug Allergies Allergy (Verified 07/03/24 12:41) Home Medications: Benazepril HCl [Lotensin] 20 mg PO HS 07/20/17 [History] Metformin HCl 500 mg [Glucophage 500 MG] 1,000 mg PO BIDWM 07/20/17 [ History] Fenofibrate 160 mg PO DAILY 12/15/21 [History] Glipizide 5 mg [Glucotrol 5 MG] 10 mg PO BID 12/15/21 [History] Chlorthalidone 25 mg PO DAILY 11/16/22 [History] Amlodipine Besylate/Benazepril [Amlodipine-Benazepril 5-20 mg] 1 tab PO DAILY 07/03/24 [History] Aspirin 81 mg PO DAILY 07/03/24 [History] Atorvastatin Calcium 10 mg PO DAILY 07/03/24 [History] Hx Influenza Vaccination/Date Given: No Hx Pneumococcal Vaccination/Date Given: No Travel Risk - Emerging Infectious Disease Are you exhibiting symptoms associated with any current EIDs: No - Review of Systems Constitutional: No Symptoms Ears, Nose, & Throat: No Symptoms Respiratory: Cough, Dyspnea Cardiac: Chest Pain Abdominal/Gastrointestinal: No Symptoms Genitourinary Symptoms: No Symptoms Musculoskeletal: Arthralgias Skin: No Symptoms Neurological: Headache, No Dizziness Psychological: No Symptoms Endocrine: No Symptoms Hematologic/Lymphatic: No Symptoms - Past Medical History Pertinent Past Medical History: Yes Neurological History: TIA ENT History: No Pertinent History Cardiac History: High Cholesterol, Hypertension, Myocardial Infarction ([place]) Respiratory History: No Pertinent History Endocrine Medical History: Diabetes Type II Musculoskeletal History: Osteoarthritis GI Medical History: GERD History: No Pertinent History Psycho-Social History: No Pertinent History Male Reproductive Disorders: No Pertinent History Other Medical History: inner ear infection 07/2024 - Past Surgical History Past Surgical History: Yes Neuro Surgical History: No Pertinent History Cardiac: No Pertinent History Respiratory: No Pertinent History Gastrointestinal: No Pertinent History Genitourinary: No Pertinent History Musculoskeletal: No Pertinent History Male Surgical History: No Pertinent History Other Surgical History: colonoscopy - Social History Smoking Status: Current every day smoker How long have you smoked: 54 years Exposure to second hand smoke: Yes Drug Use: none Patient Lives Alone: No - Social Determinants of Health Will the patient participate in the screening: Yes Do you worry about a steady place to live?: No In the past 12 months,have you had to go without utilities?: No Transportation Issues: No Has anyone in your support network made you feel unsafe?: No Have you or anyone in your house had to go without enough: No - Nursing Vital Signs Nursing Vital Signs: Initial Vital Signs Pulse Rate 62 08/16/24 15:43 Respiratory Rate 15 08/16/24 15:43 Blood Pressure 137/79 08/16/24 15:43 O2 Sat by Pulse Oximetry 94 L 08/16/24 15:43 Pain Scale Pain Intensity 2 - Physical Exam General Appearance: no apparent distress, alert Eye Exam: No scleral icterus Ears, Nose, Throat Exam: normal ENT inspection Neck Exam: normal inspection, full range of motion Respiratory Exam: wheezing Cardiovascular Exam: regular rate/rhythm, normal heart sounds Gastrointestinal/Abdomen Exam: soft, normal bowel sounds, No tenderness Extremity Exam: normal inspection, normal range of motion Neurologic Exam: alert, oriented x 3, 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, 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, normal mood/affect, nml cerebellar function, sensation nml, No nml station & gait, No motor deficits Skin Exam: normal color SpO2 Interpretation: normal SpO2: 96 O2 Delivery: Room Air - Course EKG Interpreted by Me: RATE ([id number]), Sinus Rhythm, NORMAL AXIS, NORMAL INTERVALS, Q-wave, Non-specific ST Changes Ordered Tests: Active Orders 24 hr Category Date Time Status Bedrest ROUTINE Activity 08/16/24 22:19 Completed Up With Assistance ROUTINE Activity 08/16/24 22:19 Completed Call Admit Doctor for Orders ON ADMISSION Care 08/16/24 22:19 Completed Code Status Order ROUTINE Care 08/16/24 22:19 Completed Fall Protocol Q1H Care 08/16/24 22:19 Completed POCT Glucose Check ACHS Care 08/16/24 22:[address] in Observation ROUTINE Care 08/16/24 22:19 Completed Telemetry q6h Care 08/16/24 22:19 Completed Consistent Carbohydrate Diet 1800 Calorie Diet 08/17/24 Breakfast Completed TROPONIN Q4H Lab 08/17/24 01:48 Completed Pulse Oximetry CONTINUOUS RT 08/16/24 22:19 Completed Respiratory Therapy Consult ONCE RT 08/16/24 22:19 Completed Medication Summary Discontinued Medications Generic Name Dose Route Start Last Admin Trade Name Freq PRN Reason Stop Dose Admin Acetaminophen 325 mg 08/16/24 22:33 Acetaminophen 325 Mg Tablet PO 09/15/24 22:32 Q4H PRN PRN PAIN, FEVER, HEADACHE Albuterol Sulfate 2.5 mg 08/16/24 22:32 Albuterol Sulfate 2.5 Mg/3 Ml Neb IH 09/15/24 22:31 Q4H PRN PRN SHORTNESS OF BREATH/WHEEZING Albuterol/Ipratropium 3 ml 08/16/24 16:00 08/16/24 16:25 Ipratropium/Albuterol Sulfate 3 Ml Ampul.Neb IH 08/16/24 16:01 3 ml STAT ONE Administration Albuterol/Ipratropium Confirm 08/16/24 16:20 Ipratropium/Albuterol Sulfate 3 Ml Ampul.Neb Administered 08/16/24 16:21 Dose 3 ml IH .STK-MED ONE Amlodipine Besylate 5 mg 08/17/24 10:00 08/17/24 09:30 Amlodipine Besylate 5 Mg Tablet PO 09/16/24 09:59 5 mg DAILY CANDELARIA Administration Aspirin 324 mg 08/16/24 17:51 08/16/24 17:57 Aspirin 81 Mg Tab.Chew PO 08/16/24 17:52 324 mg STAT ONE Administration Aspirin Confirm 08/16/24 17:56 Aspirin 81 Mg Tab.Chew Administered 08/16/24 17:57 Dose 324 mg .ROUTE .STK-MED ONE Aspirin 81 mg 08/17/24 10:00 08/17/24 09:32 Aspirin 81 Mg Tablet.Ec PO 09/16/24 09:59 81 mg DAILY CANDELARIA Administration Benazepril HCl 20 mg 08/17/24 10:00 08/17/24 09:42 Benazepril Hcl 10 Mg Tablet PO 09/16/24 09:59 20 mg BID CANDELARIA Administration Chlorthalidone 12.5 mg 08/17/24 10:00 Chlorthalidone 25 Mg Tablet PO 09/16/24 09:59 DAILY CANDELARIA Chlorthalidone 25 mg 08/17/24 10:00 08/17/24 09:48 Chlorthalidone 25 Mg Tablet PO 09/16/24 09:59 25 mg DAILY CANDELARIA Administration Clopidogrel Bisulfate 75 mg 08/17/24 10:00 08/17/24 09:34 Clopidogrel Bisulfate 75 Mg Tablet PO 09/16/24 09:59 75 mg DAILY CANDELARIA Administration Enoxaparin Sodium 30 mg 08/17/24 10:00 08/17/24 09:40 Enoxaparin Sodium 30 Mg/0.3 Ml Syringe SQ 09/16/24 09:59 30 mg DAILY CANDELARIA Administration Fenofibrate 145 mg 08/17/24 10:00 08/17/24 09:33 Fenofibrate,Micronized 145 Mg Tablet PO 09/16/24 09:59 145 mg DAILY CANDELARIA Administration Glipizide 10 mg 08/17/24 10:00 08/17/24 09:41 Glipizide 5 Mg Tablet PO 09/16/24 09:59 10 mg BID CANDELARIA Administration Guaifenesin 600 mg 08/17/24 10:00 08/17/24 09:33 Guaifenesin 600 Mg Tablet Er PO 09/16/24 09:59 600 mg BID CANDELARIA Administration Azithromycin 500 mg in 250 mls @ 250 mls/hr 08/16/24 18:25 08/16/24 20:22 Zithromax 500 Mg/ 250 Ml Nacl Premix IV 08/16/24 19:24 Infused STAT STA Infusion Ceftriaxone Sodium 2 gm in 100 mls @ 200 mls/hr 08/16/24 18:25 08/16/24 18:33 Rocephin 2 Gm/100 Ml Nacl IV 08/16/24 18:54 20 ml/hr STAT ONE 20 mls/hr Administration Ceftriaxone Sodium Confirm 08/16/24 18:31 Rocephin 2 Gm/100 Ml Nacl Administered 08/16/24 18:32 Dose 2 gm in 100 mls @ ud IV .STK-MED ONE Azithromycin Confirm 08/16/24 19:10 Zithromax 500 Mg/ 250 Ml Nacl Premix Administered 08/16/24 19:11 Dose 500 mg in 250 mls @ ud IV .STK-MED ONE Ceftriaxone Sodium 1 gm in 100 mls @ 200 mls/hr 08/17/24 22:00 Rocephin 1 Gm / 100 Ml Nacl IV 09/16/24 21:59 Q24H22 CANDELARIA Azithromycin 500 mg in 250 mls @ 250 mls/hr 08/17/24 22:00 Zithromax 500 Mg/ 250 Ml Nacl Premix IV 09/16/24 21:59 Q24H22 [facility] Insulin Human Lispro 0 unit 08/16/24 22:33 Insulin Lispro 1 Unit SQ 09/15/24 22:32 UD PRN HYPERGLYCEMIA Lactobacillus Acidophilus 1 tab 08/17/24 10:00 08/17/24 09:33 Lactobacillus Acidophilus 1 Tab Tablet PO 09/16/24 09:59 1 tab DAILY CANDELARIA Administration Metformin HCl 500 mg 08/17/24 08:00 Metformin Hcl 500 Mg Tablet PO 09/16/24 07:59 BIDWM CANDELARIA Metformin HCl 1,000 mg 08/17/24 08:00 08/17/24 09:41 Metformin Hcl 500 Mg Tablet PO 09/16/24 07:59 1,000 mg BIDWM CANDELARIA Administration Metoclopramide HCl Confirm 08/16/24 15:49 Metoclopramide Hcl 10 Mg/2 Ml Vial Administered 08/16/24 15:50 Dose 10 mg .ROUTE .STK-MED ONE Ondansetron HCl 4 mg 08/16/24 22:33 Ondansetron Hcl 4 Mg/2 Ml Vial IV 09/15/24 22:32 Q6H PRN PRN NAUSEA/VOMITING Potassium Chloride 20 meq 08/17/24 07:30 08/17/24 15:18 Potassium Chloride Tab 10 Meq Tab PO 08/17/24 13:31 20 meq Q2H CANDELARIA Administration Simvastatin 10 mg 08/17/24 22:00 Simvastatin 10 Mg Tablet PO 09/16/24 21:59 HS [facility] Lab/Rad Data: Laboratory Result Diagrams 08/16/24 15:55 08/16/24 15:55 Laboratory Results 08/16/24 08/16/24 08/16/24 Range/Units 19:41 16:00 15:55 WBC (4.23-9.07) x10^3/uL RBC (4.63-6.08) x10^6/uL Hgb (13.7-17.5) g/dL Hct (40.1-51.0) % MCV (79.0-92.2) fL MCH (25.7-32.2) pg MCHC (32.3-36.5) g/dL RDW (11.6-14.4) % Plt Count (163-337) x10^3/uL MPV (9.4-12.4) fL Gran % (34.0-67.9) % Immature Gran % (Auto) (0.001-0.429) % Nucleat RBC Rel Count (0.00-0.2) % Eos # (Auto) (0.04-0.54) x10^3/uL Immature Gran # (Auto) (0.001-0.031) x10^3u/L Absolute Lymphs (auto) (1.32-3.57) x10^3/uL Absolute Monos (auto) (0.30-0.82) x10^3/uL Absolute Nucleated RBC (0.00-0.012) x10^3u/L Lymphocytes % (21.8-53.1) % Monocytes % (5.3-12.2) % Eosinophils % (0.8-7.0) % Basophils % (0.2-1.2) % Absolute Granulocytes (1.78-5.38) x10^3/uL Basophils # (0.01-0.08) x10^3/uL Sodium (135-145) mmol/L Potassium (3.5-5.1) mmol/L Chloride (98-107) mmol/L Carbon Dioxide (22-30) mmol/L Anion Gap (5-15) MEQ/L BUN (9-20) mg/dL Creatinine (0.66-1.25) mg/dL Estimated GFR ML/MIN Glucose (74-106) mg/dL Lactic Acid 2.0 (0.4-2.0) Calcium (8.4-10.2) mg/dL Magnesium (1.6-2.3) mg/dL Total Bilirubin (0.2-1.3) mg/dL AST (17-59) U/L ALT (0-50) U/L Alkaline Phosphatase (38-126) U/L Troponin I < 0.012 (0.000-0.033) ng/mL NT-Pro-B Natriuret Pep 35.7 (<300) pg/mL Serum Total Protein (6.3-8.2) g/dL Albumin (3.5-5.0) g/dL 08/16/24 08/16/24 08/16/24 Range/Units 15:55 15:55 15:55 WBC 7.7 (4.23-9.07) x10^3/uL RBC 4.70 (4.63-6.08) x10^6/uL Hgb 13.7 (13.7-17.5) g/dL Hct 40.6 (40.1-51.0) % MCV 86.4 (79.0-92.2) fL MCH 29.1 (25.7-32.2) pg MCHC 33.7 (32.3-36.5) g/dL RDW 12.6 (11.6-14.4) % Plt Count 270 (163-337) x10^3/uL MPV 8.7 L (9.4-12.4) fL Gran % 75.8 H (34.0-67.9) % Immature Gran % (Auto) 0.5 H (0.001-0.429) % Nucleat RBC Rel Count 0.0 (0.00-0.2) % Eos # (Auto) 0.02 L (0.04-0.54) x10^3/uL Immature Gran # (Auto) 0.04 H (0.001-0.031) x10^3u/L Absolute Lymphs (auto) 1.14 L (1.32-3.57) x10^3/uL Absolute Monos (auto) 0.65 (0.30-0.82) x10^3/uL Absolute Nucleated RBC 0.00 (0.00-0.012) x10^3u/L Lymphocytes % 14.7 L (21.8-53.1) % Monocytes % 8.4 (5.3-12.2) % Eosinophils % 0.3 L (0.8-7.0) % Basophils % 0.3 (0.2-1.2) % Absolute Granulocytes 5.87 H (1.78-5.38) x10^3/uL Basophils # 0.02 (0.01-0.08) x10^3/uL Sodium 140 (135-145) mmol/L Potassium 3.9 (3.5-5.1) mmol/L Chloride 104 (98-107) mmol/L Carbon Dioxide 24 (22-30) mmol/L Anion Gap 15.4 H (5-15) MEQ/L BUN 31 H (9-20) mg/dL Creatinine 1.30 H (0.66-1.25) mg/dL Estimated GFR 58.0 ML/MIN Glucose 104 (74-106) mg/dL Lactic Acid (0.4-2.0) Calcium 10.5 H (8.4-10.2) mg/dL Magnesium 1.9 (1.6-2.3) mg/dL Total Bilirubin 0.60 (0.2-1.3) mg/dL AST 50 (17-59) U/L ALT 42 (0-50) U/L Alkaline Phosphatase 54 (38-126) U/L Troponin I < 0.012 (0.000-0.033) ng/mL NT-Pro-B Natriuret Pep (<300) pg/mL Serum Total Protein 7.9 (6.3-8.2) g/dL Albumin 4.6 (3.5-5.0) g/dL - Progress Progress Note: 08/16/24 18:27 Chest pain, right-sided pneumonia, balance issues, discussed with Dr. Valentin and patient is being admitted. Discussed with : Macy Counseled pt/family regarding: lab results, diagnosis, need for follow-up, rad results, smoking cessation Medical Desision Making - Independent Historian Additional History obtained from: Spouse - Discussion of managment Care discussed with:: hospitalist Reviewed:: Test results Agreed on:: Treatment plan, place in obs Will see patient: in hospital - Diagnostic Testing Diagnostic test were ordered, analyzed, and reviewed by me: Yes Radiological Interpretation: Reviewed by me - Risk of complications The pt has a mod risk of morbidity or mortality based on: Need for prescription drug management The pt has a high risk of morbidity or mortality based on: Decision regarding hospitilization or escalation of hosp level of care - Departure Departure Disposition: Observation Clinical Impression: Chest pain, rule out acute myocardial infarction, Pneumonia, Balance problem Condition: Stable Critical Care Time: No
[2024-08-16 16:10] LABS: Absolute Neutrophil Ct (ANC) 5.87 x10^3/uL (1.78-5.38); BASOPHIL % 0.3 % (0.2-1.2); Basophil (Absolute #) 0.02 x10^3/uL (0.01-0.08); Eosinophil % 0.3 % (0.8-7.0); Eosinophil (Absolute #) 0.02 x10^3/uL (0.04-0.54); Hematocrit 40.6 % (40.1-51.0); Hemoglobin 13.7 g/dL (13.7-17.5); IMMATURE GRAN # 0.04 x10^3u/L (0.001-0.031); IMMATURE GRAN % 0.5 % (0.001-0.429); Lymphocyte (Absolute #) 1.14 x10^3/uL (1.32-3.57); Lymphocytes % 14.7 % (21.8-53.1); Mean Cell Volume 86.4 fL (79.0-92.2); Mean Corpuscular Hemoglobin 29.1 pg (25.7-32.2); Mean Corpuscular Hgb Concent. 33.7 g/dL (32.3-36.5); Mean Platelet Volume 8.7 fL (9.4-12.4); Monocyte (Absolute #) 0.65 x10^3/uL (0.30-0.82); Monocytes % 8.4 % (5.3-12.2); Neutrophil % 75.8 % (34.0-67.9); Platelet Count 270 x10^3/uL (163-337); Red Cell Distribution Width 12.6 % (11.6-14.4); White Blood Count 7.7 x10^3/uL (4.23-9.07)
[2024-08-16 16:19] LABS: ALBUMIN 4.6 g/dL (3.5-5.0); ANION GAP 15.4 MEQ/L (5-15); BILIRUBIN,TOTAL 0.6 mg/dL (0.2-1.3); Calcium 10.5 mg/dL (8.4-10.2); Creatinine 1 1.3 mg/dL (0.66-1.25); MAGNESIUM 1.9 mg/dL (1.6-2.3); Potassium 3.9 mmol/L (3.5-5.1); Total Protein 7.9 g/dL (6.3-8.2)
[2024-08-16] MEDS ORDERED: DUONEB 0.5-3 MG/3 ml Neb IH ONE (16:20)
[2024-08-16] MEDS: DUONEB 0.5-3 MG/3 ml Neb IH ONE (16:25)
--- NOTE | 2024-08-16 16:53 | XRAY ---
Indication: Unsteady gait. Multiple contiguous axial images obtained through the head without contrast. Comparison: December 15, 2021 Again age-appropriate global atrophy. No acute intracranial hemorrhage, abnormal extra-axial fluid collection, or mass effect. Fourth ventricle is midline without hydrocephalus. Gusman-white matter differentiation preserved. Bony calvarium intact. Visualized paranasal sinuses and mastoid air cells are clear. Impression: Continued negative CT head without contrast exam.
--- NOTE | 2024-08-16 17:04 | XRAY ---
Indication: Chest pain. Comparison: July 03, 2024 Portable chest better inflated with now subtle right midlung interstitial alveolar opacity, possible pneumonitis/pneumonia in right clinical setting. Remaining heart and lungs unremarkable again with incidental tiny right upper lung calcified granuloma. Bony thorax intact again with osteopenia and degenerative changes.
[2024-08-16] MEDS ORDERED: BABY ASPIRIN 81 MG CHEW ONE (17:56)
[2024-08-16] MEDS: BABY ASPIRIN 81 MG CHEW PO ONE (17:57)
[2024-08-16] MEDS ORDERED: ROCEPHIN 2 GM/100 ML NACL 2 GM/100 ML IVPB IV ONE (18:31)
[2024-08-16] MEDS: ROCEPHIN 2 GM/100 ML NACL 2 GM/100 ML IVPB IV ONE (18:33)
[2024-08-16] MEDS ORDERED: Zithromax 500 MG/ 250 ML NaCl Premix 500 MG/250 ML IVPB IV ONE (19:10)
[2024-08-16] MEDS: Zithromax 500 MG/ 250 ML NaCl Premix 500 MG/250 ML IVPB IV STA (19:12)
[2024-08-16] MEDS ORDERED: PROVENTIL 2.5 MG/3 ML NEB IH PRN (22:32)
[2024-08-16] MEDS ORDERED: Zofran 4 MG/2 ML VIAL IV PRN (22:33)
[2024-08-16] MEDS ORDERED: TYLENOL 325 MG PO PRN (22:33)
[2024-08-16] MEDS ORDERED: HUMALOG SQ PRN (22:33)
--- NOTE | 2024-08-16 22:48 | PCM.HP ---
History of Present Illness - Chief Complaint Chief Complaint: pneumonia Date: 08/23/24 History of Present Illness: is a 74 year old male with a history of hypertension, hyperlipidemia, diabetes mellitus, tobacco abuse, and COPD who presented to the ER with co mplaint of left-sided chest soreness. At the time of my assessment, the patient denies chest pain but he does describe a soreness quality chest discomfort with coughing. Patient reports dull aching pain off and on with activity and better with resting. Does report having some shortness of breath with exertion, but he also denied this to me during my evaluation. Has chronic smoker's cough which i s not any worse than usual. Patient also reports having ear infection 7 weeks ago which was treated and since then has issues with the balance and gets really wobbly and did hit curtis few times. Denies any visual disturbance but what he has at his baseline, difficulty speech, numbness tingling or focal weakness. In the ED, the patient was noted to have evidence of a pneumonia and received IV antibiotics. He states that he does not feel any better at this time. - Review of Systems Constitutional: No Symptoms Eyes: No Symptoms Ears, Nose, & Throat: No Symptoms Respiratory: Cough, Short Of Breath Cardiac: Chest Pain Abdominal/Gastrointestinal: No Symptoms Genitourinary Symptoms: No Symptoms Musculoskeletal: No Symptoms, Fall Skin: No Symptoms Neurological: No Symptoms Psychological: No Symptoms Endocrine: No Symptoms Hematologic/Lymphatic: No Symptoms Immunological/Allergic: No Symptoms All Other Systems: Reviewed and Negative Medications & Allergies Home Medications: Home Medication List Benazepril HCl [Lotensin] 20 mg PO HS 07/20/17 [History Confirmed 08/16/24] Metformin HCl 500 mg [Glucophage 500 MG] 500 mg PO BIDWM 07/20/17 [History Confirmed 08/16/24] Fenofibrate 160 mg PO DAILY 12/15/21 [History Confirmed 08/16/24] Glipizide 5 mg [Glucotrol 5 MG] 10 mg PO BID 12/15/21 [History Confirmed 08/16/24] Chlorthalidone 12.5 mg PO DAILY 11/16/22 [History Confirmed 08/16/24] Clopidogrel Bisulfate [PLAVIX Tablet] 75 mg PO DAILY 30 Days #30 tablet 12/10/22 [Rx Confirmed 08/16/24] Amlodipine Besylate/Benazepril [Amlodipine-Benazepril 5-20 mg] 1 tab PO DAILY 07/03/24 [History Confirmed 08/16/24] Aspirin 81 mg PO DAILY 07/03/24 [History Confirmed 08/16/24] Atorvastatin Calcium 10 mg PO DAILY 07/03/24 [History Confirmed 08/16/24] Allergies/Adverse Reactions: Allergies Allergy/AdvReac Type Severity Reaction Status Date / Time No Known Drug Allergies Allergy Verified 07/03/24 12:41 - Past Medical History Past Medical History: Yes Neurological History: TIA ENT History: No Pertinent History Cardiac History: High Cholesterol, Hypertension, Myocardial Infarction ([place]) Respiratory History: No Pertinent History Endocrine Medical History: Diabetes Type II Musculoskelatal History: Osteoarthritis GI Medical History: GERD History: No Pertinent History Pyscho-Social History: No Pertinent History Male Reproductive Disorders: No Pertinent History Comment: inner ear infection 07/2024 - Past Surgical History Past Surgical History: Yes Neuro Surgical History: No Pertinent History Cardiac History: No Pertinent History Respiratory Surgery: No Pertinent History GI Surgical History: No Pertinent History Genitourinary Surgical Hx: No Pertinent History Musculskeletal Surgical Hx: No Pertinent History Male Surgical History: No Pertinent History Other Surgical History: colonoscopy Family History: No report of hereditary pulmonary disorders. - Social History Smoking Status: Current every day smoker How long have you smoked: 54 years Exposure to second hand smoke: Yes Alcohol: None Drug Use: none - Social Determinants of Health Will the patient participate in the screening: Yes Do you worry about a steady place to live?: No Do you have any problems with any of the following?: No known problems In the past 12 months,have you had to go without utilities?: No Have you or anyone in your house had to go without enough: No Transportation Issues: No Has anyone in your support network made you feel unsafe?: No - Physical Exam Vital Signs: Vital Signs - 24 hr Temp Pulse Resp BP BP Pulse Ox 08/16/24 22:00 72 117/54 95 08/16/24 21:30 64 19 113/50 95 08/16/24 21:00 71 22 124/61 94 L 08/16/24 20:30 79 19 107/45 95 08/16/24 20:00 79 22 109/54 91 L 08/16/24 19:30 72 22 109/57 94 L 08/16/24 19:00 73 19 137/57 94 L 08/16/24 18:58 73 22 137/69 93 L 08/16/24 18:30 59 L 23 121/60 93 L 08/16/24 18:29 96 08/16/24 18:01 57 L 19 141/57 93 L 08/16/24 17:39 64 20 140/75 95 08/16/24 16:28 56 L 16 94 L 08/16/24 15:44 97.5 F 78 18 137/79 96 08/16/24 15:43 62 15 137/79 94 L General Appearance: no apparent distress, alert Neurologic Exam: alert, oriented x 3, cooperative, engineer specialist II-XII nml as tested, normal mood/affect, nml cerebellar function Eye Exam: PERRL/EOMI, eyes nml inspection Ears, Nose, Throat Exam: normal ENT inspection Neck Exam: normal inspection, non-tender, supple, full range of motion Respiratory Exam: normal breath sounds, lungs clear Cardiovascular Exam: regular rate/rhythm, normal heart sounds Gastrointestinal/Abdomen Exam: soft, normal bowel sounds Back Exam: normal range of motion Extremity Exam: normal inspection, normal range of motion Skin Exam: normal color Results - Labs Lab/Micro Results: Lab Results-Last 24 Hours 08/16/24 08/16/24 08/16/24 Range/Units 15:55 15:55 15:55 WBC 7.7 (4.23-9.07) x10^3/uL RBC 4.70 (4.63-6.08) x10^6/uL Hgb 13.7 (13.7-17.5) g/dL Hct 40.6 (40.1-51.0) % MCV 86.4 (79.0-92.2) fL MCH 29.1 (25.7-32.2) pg MCHC 33.7 (32.3-36.5) g/dL RDW 12.6 (11.6-14.4) % Plt Count 270 (163-337) x10^3/uL MPV 8.7 L (9.4-12.4) fL Gran % 75.8 H (34.0-67.9) % Immature Gran % (Auto) 0.5 H (0.001-0.429) % Nucleat RBC Rel Count 0.0 (0.00-0.2) % Eos # (Auto) 0.02 L (0.04-0.54) x10^3/uL Immature Gran # (Auto) 0.04 H (0.001-0.031) x10^3u/L Absolute Lymphs (auto) 1.14 L (1.32-3.57) x10^3/uL Absolute Monos (auto) 0.65 (0.30-0.82) x10^3/uL Absolute Nucleated RBC 0.00 (0.00-0.012) x10^3u/L Lymphocytes % 14.7 L (21.8-53.1) % Monocytes % 8.4 (5.3-12.2) % Eosinophils % 0.3 L (0.8-7.0) % Basophils % 0.3 (0.2-1.2) % Absolute Granulocytes 5.87 H (1.78-5.38) x10^3/uL Basophils # 0.02 (0.01-0.08) x10^3/uL Sodium 140 (135-145) mmol/L Potassium 3.9 (3.5-5.1) mmol/L Chloride 104 (98-107) mmol/L Carbon Dioxide 24 (22-30) mmol/L Anion Gap 15.4 H (5-15) MEQ/L BUN 31 H (9-20) mg/dL Creatinine 1.30 H (0.66-1.25) mg/dL Estimated GFR 58.0 ML/MIN Glucose 104 (74-106) mg/dL Lactic Acid (0.4-2.0) Calcium 10.5 H (8.4-10.2) mg/dL Magnesium 1.9 (1.6-2.3) mg/dL Total Bilirubin 0.60 (0.2-1.3) mg/dL AST 50 (17-59) U/L ALT 42 (0-50) U/L Alkaline Phosphatase 54 (38-126) U/L Troponin I < 0.012 (0.000-0.033) ng/mL NT-Pro-B Natriuret Pep (<300) pg/mL Serum Total Protein 7.9 (6.3-8.2) g/dL Albumin 4.6 (3.5-5.0) g/dL 08/16/24 08/16/24 08/16/24 Range/Units 15:55 16:00 19:41 WBC (4.23-9.07) x10^3/uL RBC (4.63-6.08) x10^6/uL Hgb (13.7-17.5) g/dL Hct (40.1-51.0) % MCV (79.0-92.2) fL MCH (25.7-32.2) pg MCHC (32.3-36.5) g/dL RDW (11.6-14.4) % Plt Count (163-337) x10^3/uL MPV (9.4-12.4) fL Gran % (34.0-67.9) % Immature Gran % (Auto) (0.001-0.429) % Nucleat RBC Rel Count (0.00-0.2) % Eos # (Auto) (0.04-0.54) x10^3/uL Immature Gran # (Auto) (0.001-0.031) x10^3u/L Absolute Lymphs (auto) (1.32-3.57) x10^3/uL Absolute Monos (auto) (0.30-0.82) x10^3/uL Absolute Nucleated RBC (0.00-0.012) x10^3u/L Lymphocytes % (21.8-53.1) % Monocytes % (5.3-12.2) % Eosinophils % (0.8-7.0) % Basophils % (0.2-1.2) % Absolute Granulocytes (1.78-5.38) x10^3/uL Basophils # (0.01-0.08) x10^3/uL Sodium (135-145) mmol/L Potassium (3.5-5.1) mmol/L Chloride (98-107) mmol/L Carbon Dioxide (22-30) mmol/L Anion Gap (5-15) MEQ/L BUN (9-20) mg/dL Creatinine (0.66-1.25) mg/dL Estimated GFR ML/MIN Glucose (74-106) mg/dL Lactic Acid 2.0 (0.4-2.0) Calcium (8.4-10.2) mg/dL Magnesium (1.6-2.3) mg/dL Total Bilirubin (0.2-1.3) mg/dL AST (17-59) U/L ALT (0-50) U/L Alkaline Phosphatase (38-126) U/L Troponin I < 0.012 (0.000-0.033) ng/mL NT-Pro-B Natriuret Pep 35.7 (<300) pg/mL Serum Total Protein (6.3-8.2) g/dL Albumin (3.5-5.0) g/dL - Radiology Impressions Radiology Exams & Impressions: Radiology Procedures Category Date Time Status CHEST 1 VIEW (PORTABLE) Stat Exams 08/16/24 16:01 Completed HEAD WITHOUT CONTRAST [CT] Stat Exams 08/16/24 15:39 Completed - Other Procedures and Tests Respiratory Therapy 08/16/24 22:19 Respiratory Therapy Consult ONCE 08/16/24 22:33 Respiratory Therapy Consult ROUTINE 08/16/24 22:41 Incentive Spirometry TID Assessment/Plan (1) Pneumonia Current Visit: Yes Status: Acute Assessment & Plan: IV antibiotics. Nebs prn. Incentive spirometry. Code(s): J18.9 - PNEUMONIA, UNSPECIFIED ORGANISM (2) Chest pain, rule out acute myocardial infarction Current Visit: Yes Status: Acute Assessment & Plan: Continue ASA + Plavix. Serial cardiac enzymes on tele. Follows with Dr. Mora. Code(s): R07.9 - CHEST PAIN, UNSPECIFIED (3) Balance problem Current Visit: Yes Status: Acute Assessment & Plan: PT/OT assessment. Code(s): R26.89 - OTHER ABNORMALITIES OF GAIT AND MOBILITY (4) Diabetes mellitus with hyperglycemia Current Visit: Yes Status: Acute Assessment & Plan: Continue current regimen and follow sugars on ISS. Code(s): E11.65 - TYPE 2 DIABETES MELLITUS WITH HYPERGLYCEMIA Telemedicine Encounter - Telemedicine Encounter Telemedicine Encounter: "The entirety of this encounter was performed via Telemedicine" This visit was performed using real-time audio and video connection between my location and thepatients locationwith the assistance of a surrogateat the patients location. Written or verbal consent was obtained from the patient/guardian to perform this visit [facility] technology. Any patient questions regarding the telemedicine interaction were answered.
[2024-08-17 02:06] LABS: Absolute Neutrophil Ct (ANC) 3.88 x10^3/uL (1.78-5.38); BASOPHIL % 0.2 % (0.2-1.2); Basophil (Absolute #) 0.01 x10^3/uL (0.01-0.08); Eosinophil % 1.1 % (0.8-7.0); Eosinophil (Absolute #) 0.06 x10^3/uL (0.04-0.54); Hematocrit 37.4 % (40.1-51.0); Hemoglobin 12.6 g/dL (13.7-17.5); IMMATURE GRAN # 0.03 x10^3u/L (0.001-0.031); IMMATURE GRAN % 0.5 % (0.001-0.429); Lymphocyte (Absolute #) 1.12 x10^3/uL (1.32-3.57); Lymphocytes % 19.8 % (21.8-53.1); Mean Corpuscular Hemoglobin 29.3 pg (25.7-32.2); Mean Corpuscular Hgb Concent. 33.7 g/dL (32.3-36.5); Mean Platelet Volume 8.8 fL (9.4-12.4); Monocyte (Absolute #) 0.57 x10^3/uL (0.30-0.82); Monocytes % 10.1 % (5.3-12.2); Neutrophil % 68.3 % (34.0-67.9); Platelet Count 234 x10^3/uL (163-337); Red Cell Distribution Width 12.8 % (11.6-14.4); White Blood Count 5.7 x10^3/uL (4.23-9.07)
[2024-08-17 02:22] LABS: ANION GAP 12.8 MEQ/L (5-15); Calcium 9.8 mg/dL (8.4-10.2); Creatinine 1 1.13 mg/dL (0.66-1.25); EST GLOMERULAR FILTRATION RATE 68.6 ML/MIN; Potassium 3.4 mmol/L (3.5-5.1)
[2024-08-17] MEDS ORDERED: Glucophage 500 MG PO SCH (08:00)
[2024-08-17 08:06] VITALS: RESP 16
[2024-08-17] MEDS: NORVASC 5 MG PO SCH (09:30)
[2024-08-17] MEDS: ECOTRIN 81 MG PO SCH (09:32)
[2024-08-17] MEDS: Acidophilus TABLET PO SCH (09:33)
[2024-08-17] MEDS: Mucinex 600MG ER Tabs PO SCH (09:33)
[2024-08-17] MEDS: Tricor 145 MG PO SCH (09:33)
[2024-08-17] MEDS: PLAVIX Tablet PO SCH (09:34)
[2024-08-17] MEDS: ENOXAPARIN SODIUM SQ SCH (09:40)
[2024-08-17] MEDS: Glucotrol 5 MG PO SCH (09:41)
[2024-08-17] MEDS: Glucophage 500 MG PO SCH (09:41)
[2024-08-17] MEDS: Lotensin PO SCH (09:42)
[2024-08-17] MEDS: Klor Con PO SCH (09:48)
[2024-08-17] MEDS: CHLORTHALIDONE PO SCH (09:48)
[2024-08-17] MEDS ORDERED: NON-FORMULARY ITEM (Atorvastatin Calcium [Atorvastatin Calcium] 10 MG Tablet) PO SCH (10:00)
[2024-08-17] MEDS ORDERED: NON-FORMULARY ITEM (Fenofibrate [Fenofibrate] 160 MG Tablet) PO SCH (10:00)
[2024-08-17] MEDS ORDERED: CHLORTHALIDONE PO SCH (10:00)
--- NOTE | 2024-08-17 15:22 | PCM.DS ---
Discharge Summary Date of Admission: 08/16/24 22:18 Date of Discharge: 08/17/24 Admitting Physician: CONTRERAS BARNES MD Primary Care Provider: ROXANNA STILL Allergies Allergies No Known Drug Allergies Allergy (Verified 07/03/24 12:41) Hospital Summary - Hospital Course Hospital Course: is a 74 year old male with a history of hypertension, hyperlipidemia, diabetes mellitus, tobacco abuse, and COPD. He presented to the ER with compla int of left-sided chest soreness. At the time of admission, the patient denied chest pain but he does describe a soreness quality chest discomfort with coughing. Patient reported dull aching pain off and on with activity and better with resting. Does report having some shortness of breath with exertion, but he also denied this on evaluation. Has chronic smoker's cough which is not any worse than usual. Patient also reports having ear infection 7 weeks ago which was treated and since then has issues with the balance and gets really wobbly and did hit curtis few times. Denies any visual disturbance but what he has at his baseline, difficulty speech, numbness tingling or focal weakness. In the ED, the patient was noted to have evidence of a pneumonia and received IV antibiotics. Antibiotics were continued IP. He states he feels much better today and is ready to d/c. He is no longer having CP. He is RA 96%. Trop x3 negative. PT was able to work with pt and scheduled OP PT for f/u care. K+ 3.4 and replaced. Will need to f/u with PCP OP. Will continue PO antibiotics for pneumonia. He denies CP, SOB, abd. pain, N/V/D. - Vitals & Intake/Output Vital Signs: Vital Signs Temperature 97.1 F 08/17/24 11:28 Pulse Rate 57 L 08/17/24 11:28 Respiratory Rate 16 08/17/24 11:28 Blood Pressure 131/58 08/17/24 11:28 O2 Sat by Pulse Oximetry 95 08/17/24 11:28 Intake & Output: Intake & Output 08/15/24 08/16/24 08/17/24 08/18/24 11:59 11:59 11:59 11:59 Intake Total 540 Balance 540 Weight 69.2 kg - Lab Result Diagrams: 08/17/24 01:48 08/17/24 01:48 Lab Results-Last 24 Hrs: Lab Results-Last 24 Hours 08/16/24 08/16/24 08/16/24 Range/Units 15:55 15:55 15:55 WBC 7.7 (4.23-9.07) x10^3/uL RBC 4.70 (4.63-6.08) x10^6/uL Hgb 13.7 (13.7-17.5) g/dL Hct 40.6 (40.1-51.0) % MCV 86.4 (79.0-92.2) fL MCH 29.1 (25.7-32.2) pg MCHC 33.7 (32.3-36.5) g/dL RDW 12.6 (11.6-14.4) % Plt Count 270 (163-337) x10^3/uL MPV 8.7 L (9.4-12.4) fL Gran % 75.8 H (34.0-67.9) % Immature Gran % (Auto) 0.5 H (0.001-0.429) % Nucleat RBC Rel Count 0.0 (0.00-0.2) % Eos # (Auto) 0.02 L (0.04-0.54) x10^3/uL Immature Gran # (Auto) 0.04 H (0.001-0.031) x10^3u/L Absolute Lymphs (auto) 1.14 L (1.32-3.57) x10^3/uL Absolute Monos (auto) 0.65 (0.30-0.82) x10^3/uL Absolute Nucleated RBC 0.00 (0.00-0.012) x10^3u/L Lymphocytes % 14.7 L (21.8-53.1) % Monocytes % 8.4 (5.3-12.2) % Eosinophils % 0.3 L (0.8-7.0) % Basophils % 0.3 (0.2-1.2) % Absolute Granulocytes 5.87 H (1.78-5.38) x10^3/uL Basophils # 0.02 (0.01-0.08) x10^3/uL Sodium 140 (135-145) mmol/L Potassium 3.9 (3.5-5.1) mmol/L Chloride 104 (98-107) mmol/L Carbon Dioxide 24 (22-30) mmol/L Anion Gap 15.4 H (5-15) MEQ/L BUN 31 H (9-20) mg/dL Creatinine 1.30 H (0.66-1.25) mg/dL Estimated GFR 58.0 ML/MIN Glucose 104 (74-106) mg/dL POC Glucometer (74 to 106) mg/dL Lactic Acid (0.4-2.0) Calcium 10.5 H (8.4-10.2) mg/dL Magnesium 1.9 (1.6-2.3) mg/dL Total Bilirubin 0.60 (0.2-1.3) mg/dL AST 50 (17-59) U/L ALT 42 (0-50) U/L Alkaline Phosphatase 54 (38-126) U/L Troponin I < 0.012 (0.000-0.033) ng/mL NT-Pro-B Natriuret Pep (<300) pg/mL Serum Total Protein 7.9 (6.3-8.2) g/dL Albumin 4.6 (3.5-5.0) g/dL 08/16/24 08/16/24 08/16/24 Range/Units 15:55 16:00 19:41 WBC (4.23-9.07) x10^3/uL RBC (4.63-6.08) x10^6/uL Hgb (13.7-17.5) g/dL Hct (40.1-51.0) % MCV (79.0-92.2) fL MCH (25.7-32.2) pg MCHC (32.3-36.5) g/dL RDW (11.6-14.4) % Plt Count (163-337) x10^3/uL MPV (9.4-12.4) fL Gran % (34.0-67.9) % Immature Gran % (Auto) (0.001-0.429) % Nucleat RBC Rel Count (0.00-0.2) % Eos # (Auto) (0.04-0.54) x10^3/uL Immature Gran # (Auto) (0.001-0.031) x10^3u/L Absolute Lymphs (auto) (1.32-3.57) x10^3/uL Absolute Monos (auto) (0.30-0.82) x10^3/uL Absolute Nucleated RBC (0.00-0.012) x10^3u/L Lymphocytes % (21.8-53.1) % Monocytes % (5.3-12.2) % Eosinophils % (0.8-7.0) % Basophils % (0.2-1.2) % Absolute Granulocytes (1.78-5.38) x10^3/uL Basophils # (0.01-0.08) x10^3/uL Sodium (135-145) mmol/L Potassium (3.5-5.1) mmol/L Chloride (98-107) mmol/L Carbon Dioxide (22-30) mmol/L Anion Gap (5-15) MEQ/L BUN (9-20) mg/dL Creatinine (0.66-1.25) mg/dL Estimated GFR ML/MIN Glucose (74-106) mg/dL POC Glucometer (74 to 106) mg/dL Lactic Acid 2.0 (0.4-2.0) Calcium (8.4-10.2) mg/dL Magnesium (1.6-2.3) mg/dL Total Bilirubin (0.2-1.3) mg/dL AST (17-59) U/L ALT (0-50) U/L Alkaline Phosphatase (38-126) U/L Troponin I < 0.012 (0.000-0.033) ng/mL NT-Pro-B Natriuret Pep 35.7 (<300) pg/mL Serum Total Protein (6.3-8.2) g/dL Albumin (3.5-5.0) g/dL 08/17/24 08/17/24 08/17/24 Range/Units 01:48 01:48 01:48 WBC 5.7 (4.23-9.07) x10^3/uL RBC 4.30 L (4.63-6.08) x10^6/uL Hgb 12.6 L (13.7-17.5) g/dL Hct 37.4 L (40.1-51.0) % MCV 87.0 (79.0-92.2) fL MCH 29.3 (25.7-32.2) pg MCHC 33.7 (32.3-36.5) g/dL RDW 12.8 (11.6-14.4) % Plt Count 234 (163-337) x10^3/uL MPV 8.8 L (9.4-12.4) fL Gran % 68.3 H (34.0-67.9) % Immature Gran % (Auto) 0.5 H (0.001-0.429) % Nucleat RBC Rel Count 0.0 (0.00-0.2) % Eos # (Auto) 0.06 (0.04-0.54) x10^3/uL Immature Gran # (Auto) 0.03 (0.001-0.031) x10^3u/L Absolute Lymphs (auto) 1.12 L (1.32-3.57) x10^3/uL Absolute Monos (auto) 0.57 (0.30-0.82) x10^3/uL Absolute Nucleated RBC 0.00 (0.00-0.012) x10^3u/L Lymphocytes % 19.8 L (21.8-53.1) % Monocytes % 10.1 (5.3-12.2) % Eosinophils % 1.1 (0.8-7.0) % Basophils % 0.2 (0.2-1.2) % Absolute Granulocytes 3.88 (1.78-5.38) x10^3/uL Basophils # 0.01 (0.01-0.08) x10^3/uL Sodium 139 (135-145) mmol/L Potassium 3.4 L (3.5-5.1) mmol/L Chloride 105 (98-107) mmol/L Carbon Dioxide 24 (22-30) mmol/L Anion Gap 12.8 (5-15) MEQ/L BUN 28 H (9-20) mg/dL Creatinine 1.13 (0.66-1.25) mg/dL Estimated GFR 68.6 ML/MIN Glucose 76 (74-106) mg/dL POC Glucometer (74 to 106) mg/dL Lactic Acid (0.4-2.0) Calcium 9.8 (8.4-10.2) mg/dL Magnesium (1.6-2.3) mg/dL Total Bilirubin (0.2-1.3) mg/dL AST (17-59) U/L ALT (0-50) U/L Alkaline Phosphatase (38-126) U/L Troponin I < 0.012 (0.000-0.033) ng/mL NT-Pro-B Natriuret Pep (<300) pg/mL Serum Total Protein (6.3-8.2) g/dL Albumin (3.5-5.0) g/dL 08/17/24 08/17/24 Range/Units 07:33 11:24 WBC (4.23-9.07) x10^3/uL RBC (4.63-6.08) x10^6/uL Hgb (13.7-17.5) g/dL Hct (40.1-51.0) % MCV (79.0-92.2) fL MCH (25.7-32.2) pg MCHC (32.3-36.5) g/dL RDW (11.6-14.4) % Plt Count (163-337) x10^3/uL MPV (9.4-12.4) fL Gran % (34.0-67.9) % Immature Gran % (Auto) (0.001-0.429) % Nucleat RBC Rel Count (0.00-0.2) % Eos # (Auto) (0.04-0.54) x10^3/uL Immature Gran # (Auto) (0.001-0.031) x10^3u/L Absolute Lymphs (auto) (1.32-3.57) x10^3/uL Absolute Monos (auto) (0.30-0.82) x10^3/uL Absolute Nucleated RBC (0.00-0.012) x10^3u/L Lymphocytes % (21.8-53.1) % Monocytes % (5.3-12.2) % Eosinophils % (0.8-7.0) % Basophils % (0.2-1.2) % Absolute Granulocytes (1.78-5.38) x10^3/uL Basophils # (0.01-0.08) x10^3/uL Sodium (135-145) mmol/L Potassium (3.5-5.1) mmol/L Chloride (98-107) mmol/L Carbon Dioxide (22-30) mmol/L Anion Gap (5-15) MEQ/L BUN (9-20) mg/dL Creatinine (0.66-1.25) mg/dL Estimated GFR ML/MIN Glucose (74-106) mg/dL POC Glucometer 94 124 H (74 to 106) mg/dL Lactic Acid (0.4-2.0) Calcium (8.4-10.2) mg/dL Magnesium (1.6-2.3) mg/dL Total Bilirubin (0.2-1.3) mg/dL AST (17-59) U/L ALT (0-50) U/L Alkaline Phosphatase (38-126) U/L Troponin I (0.000-0.033) ng/mL NT-Pro-B Natriuret Pep (<300) pg/mL Serum Total Protein (6.3-8.2) g/dL Albumin (3.5-5.0) g/dL Micro Results-Entire Visit: Accuchecks Date 08/17/24 Date 08/17/24 - Radiology Exams Ordered Rad Exams-Entire Visit: Radiology Procedures Category Date Time Status CHEST 1 VIEW (PORTABLE) Stat Exams 08/16/24 16:01 Completed HEAD WITHOUT CONTRAST [CT] Stat Exams 08/16/24 15:39 Completed - Procedures and Test Procedures and Tests throughout Hospitalization: Therapy Orders & Screens 08/16/24 22:19 Respiratory Therapy Consult ONCE Comment: Reason For Exam: 08/16/24 22:33 PT Eval & Treat (MD Order) ONCE Reason for Eval:: unsteady gait Diagnosis: pneumonia Respiratory Therapy Consult ROUTINE Comment: Reason For Exam: Diagnosis: Pneumonia 08/16/24 22:41 Incentive Spirometry UD Comment: Diagnosis: pneumonia Discharge Exam General Appearance: no apparent distress, alert Neurologic Exam: alert, oriented x 3, cooperative, normal mood/affect, nml cerebellar function, sensation nml, No motor deficits Eye Exam: PERRL, EOMI, eyes nml inspection Ears, Nose, Throat Exam: normal ENT inspection, pharynx normal, moist mucous membranes Neck Exam: normal inspection, non-tender, supple, full range of motion Respiratory Exam: normal breath sounds, lungs clear, No respiratory distress Cardiovascular Exam: regular rate/rhythm, normal heart sounds Gastrointestinal/Abdomen Exam: soft, No tenderness, No mass Male Genitalia Exam: deferred Rectal Exam: deferred Back Exam: normal inspection, normal range of motion, No CVA tenderness, No vertebral tenderness Extremity Exam: normal inspection, normal range of motion Skin Exam: normal color, warm, dry Final Diagnosis/Problem List - Final Discharge Diagnosis/Problem (1) Pneumonia Current Visit: Yes Status: Acute Assessment & Plan: - IV antibiotics - as seen on CXR - right mid- lung - RA 96% - Will continue OP PO antibiotics Code(s): J18.9 - PNEUMONIA, UNSPECIFIED ORGANISM (2) Chest pain Current Visit: Yes Status: Resolved Assessment & Plan: - pt denies CP today - trop x3 negative - F/U with cardiology OP - Tele - EKG - Chest XR Code(s): R07.9 - CHEST PAIN, UNSPECIFIED (3) Balance problem Current Visit: Yes Status: Acute Assessment & Plan: - D/C with meclizine - PT eval and treat - will f/u OP with PT Code(s): R26.89 - OTHER ABNORMALITIES OF GAIT AND MOBILITY (4) Diabetes mellitus with hyperglycemia Current Visit: Yes Status: Chronic Assessment & Plan: - continue oral meds - A1C 07/13/24 7.04- controlled Code(s): E11.65 - TYPE 2 DIABETES MELLITUS WITH HYPERGLYCEMIA (5) Hypokalemia Current Visit: Yes Status: Acute Assessment & Plan: - K+ 3.4 replaced- will d/c with PO OP meds Code(s): E87.6 - HYPOKALEMIA - Discharge Discharge Date: 08/17/24 Disposition: Home, Self-Care Condition: Stable Prescriptions: Continue Metformin HCl 500 mg [Glucophage 500 MG] 1,000 mg PO BIDWM Benazepril HCl [Lotensin] 20 mg PO HS Glipizide 5 mg [Glucotrol 5 MG] 10 mg PO BID Fenofibrate 160 mg PO DAILY Chlorthalidone 25 mg PO DAILY Clopidogrel Bisulfate [PLAVIX Tablet] 75 mg PO DAILY 30 Days #30 tablet Atorvastatin Calcium 10 mg PO DAILY Amlodipine Besylate/Benazepril [Amlodipine-Benazepril 5-20 mg] 1 tab PO DAILY Aspirin 81 mg PO DAILY Outpatient Orders: Physical Therapy Eval & Treat Facility: [facility], Location: PHYSICAL THERAPY Additional Instructions: YOUR FIRST APT WITH [facility] IS 08/23/24@ 1 PM Follow up with: ROXANNA STILL MD [Primary Care Provider] -
[2024-08-17 16:01] VITALS: BP 128/70; PULSE 53; TEMP 96.9; O2SAT 96
[2024-08-17] MEDS ORDERED: Zithromax 500 MG/ 250 ML NaCl Premix 500 MG/250 ML IVPB IV SCH (22:00)
[2024-08-17] MEDS ORDERED: ROCEPHIN 1 GM / 100 ML NaCl 1 GM/100 ML IVPB IV SCH (22:00)
[2024-08-17] MEDS ORDERED: Zocor 10MG PO SCH (22:00)
[2024-08-17] MEDS ORDERED: BENAZEPRIL HCL 5 MG PO SCH (22:00)
== END 2024-08-17 17:25 | disposition home or self-care (01) ==
LOC: ED 15:30 → MED SURG 22:18
PROVIDERS: ADMIT Internal Medicine; ATTEND Internal Medicine
DX: J18.9 Pneumonia, unspecified organism (principal); R07.9 Chest pain, unspecified; R26.89 Other abnormalities of gait and mobility; E11.65 Type 2 diabetes mellitus with hyperglycemia; E87.6 Hypokalemia; I10 Essential (primary) hypertension; E78.5 Hyperlipidemia, unspecified; E11.9 Type 2 diabetes mellitus without complications; F17.200 Nicotine dependence, unspecified, uncomplicated; Z79.899 Other long term (current) drug therapy
CPT/HCPCS: 36415; 70450; 71045; 80048; 80053; 82947; 83605; 83735; 83880; 84484; 85025; 93005; 93041; 93268; 94640; 94760; 94762; 96365; 96367; 99285; J0456; J0696; J1650; A9270-GY; G0378

== ENCOUNTER 2024-08-30 14:56 | Observation (INO) | payer MEDICARE, OTHER ==
[2024-08-30 16:33] LABS: Absolute Neutrophil Ct (ANC) 5.25 x10^3/uL (1.78-5.38); BASOPHIL % 0.4 % (0.2-1.2); Basophil (Absolute #) 0.03 x10^3/uL (0.01-0.08); Eosinophil % 0.3 % (0.8-7.0); Eosinophil (Absolute #) 0.02 x10^3/uL (0.04-0.54); Hematocrit 37.7 % (40.1-51.0); Hemoglobin 12.6 g/dL (13.7-17.5); IMMATURE GRAN # 0.11 x10^3u/L (0.001-0.031); IMMATURE GRAN % 1.6 % (0.001-0.429); Lymphocyte (Absolute #) 0.88 x10^3/uL (1.32-3.57); Lymphocytes % 12.4 % (21.8-53.1); Mean Cell Volume 86.3 fL (79.0-92.2); Mean Corpuscular Hemoglobin 28.8 pg (25.7-32.2); Mean Corpuscular Hgb Concent. 33.4 g/dL (32.3-36.5); Mean Platelet Volume 8.2 fL (9.4-12.4); Monocyte (Absolute #) 0.78 x10^3/uL (0.30-0.82); Neutrophil % 74.3 % (34.0-67.9); Platelet Count 280 x10^3/uL (163-337); Red Blood Count 4.37 x10^6/uL (4.63-6.08); Red Cell Distribution Width 12.5 % (11.6-14.4); White Blood Count 7.1 x10^3/uL (4.23-9.07)
--- NOTE | 2024-08-30 16:38 | ERPHSYRPT ---
- History of Present Illness Source: patient, family Exam Limitations: no limitations Patient Subjective Stated Complaint: C/O low back pain. Timeline of pain is unclear. Patient did fall approx one week ago but states he didn't fall far or hard enough to hurt himself. Denies frequency, urgency, or dysuria. Denies fever. Triage Nursing Assessment: Patient ambulated back to ER with a walker. Patient got up from his seated position to walk back to the ER slowly with a grimace on his face. patient able to get self onto the ER bed but showed s/s of pain while doing this. Patient states he has only been using the walker for the past week related to the pain. No SOB. He is alert and oriented; a little hard of hearing. Hx Tetanus, Diphtheria Vaccination/Date Given: Yes Hx Influenza Vaccination/Date Given: No Hx Pneumococcal Vaccination/Date Given: No Immunizations Up to Date: Yes <ESPINOZA VERA - Last Filed: 08/30/24 16:34> <ZULLY MALAVE - Last Filed: 08/30/24 20:53> - History of Present Illness Time Seen by Provider: 08/30/24 15:48 Physician History: 74 years old male with history of hypertension, hyperlipidemia, diabetes mellitus, tobacco abuse, COPD, issues with balance was recently admitted for pneumonia, fell off of the bed few days ago complaining of pain in the right lower back. Patient reports moderate to severe intensity sharp pain in the right lower back with some radiation to the right lower quadrant. Also report having epigastric/substernal chest pain which patient is recovering from pneumonia. Patient has no fever or chills. Denies any nausea or vomiting. Patient is scheduled for outpatient CT chest, stress test and MRI of the head. Pain in the lower back is moderate to severe sharp shooting, aggravated with ambulation and partial relief with being still. No radiation to lower extremities, no loss of bowel or bladder control. No numbness tingling or weakness of lower extremities, no saddle anesthesia. (ESPINOZA VERA) Allergies/Adverse Reactions: No Known Drug Allergies Allergy (Verified 08/30/24 15:42) Home Medications: Benazepril HCl [Lotensin] 20 mg PO HS 07/20/17 [History] Metformin HCl 500 mg [Glucophage 500 MG] 1,000 mg PO BIDWM 07/20/17 [History] Fenofibrate 160 mg PO DAILY 12/15/21 [History] Glipizide 5 mg [Glucotrol 5 MG] 10 mg PO BID 12/15/21 [History] Chlorthalidone 25 mg PO DAILY 11/16/22 [History] Amlodipine Besylate/Benazepril [Amlodipine-Benazepril 5-20 mg] 1 tab PO DAILY 07/03/24 [History] Aspirin 81 mg PO DAILY 07/03/24 [History] Atorvastatin Calcium 10 mg PO DAILY 07/03/24 [History] Travel Risk - International Travel Have you traveled outside of the country in past 3 weeks: No - Emerging Infectious Disease Are you exhibiting symptoms associated with any current EIDs: No <ESPINOZA VERA - Last Filed: 08/30/24 16:34> - Review of Systems Constitutional: No Symptoms Eyes: No Symptoms Ears, Nose, & Throat: No Symptoms Respiratory: Cough Cardiac: Chest Pain Abdominal/Gastrointestinal: Abdominal Pain Genitourinary Symptoms: No Symptoms Musculoskeletal: Arthralgias, Back Pain Skin: No Symptoms Neurological: Gait Changes (Chronic) Psychological: No Symptoms Endocrine: No Symptoms Hematologic/Lymphatic: No Symptoms Immunological/Allergic: No Symptoms <ESPINOZA VERA - Last Filed: 08/30/24 16:34> - Past Medical History Pertinent Past Medical History: Yes Neurological History: TIA ENT History: No Pertinent History Cardiac History: High Cholesterol, Hypertension Respiratory History: COPD Endocrine Medical History: Diabetes Type II Musculoskeletal History: Osteoarthritis GI Medical History: GERD History: No Pertinent History Psycho-Social History: No Pertinent History Male Reproductive Disorders: No Pertinent History Other Medical History: inner ear infection 07/2024, 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 - Past Surgical History Past Surgical History: No Neuro Surgical History: No Pertinent History Cardiac: No Pertinent History Respiratory: No Pertinent History Gastrointestinal: No Pertinent History Genitourinary: No Pertinent History Musculoskeletal: No Pertinent History Male Surgical History: No Pertinent History Other Surgical History: colonoscopy - Social History Smoking Status: Current every day smoker How long have you smoked: 54 years Exposure to second hand smoke: Yes Drug Use: none Patient Lives Alone: No - Social Determinants of Health Will the patient participate in the screening: Yes Do you worry about a steady place to live?: No Do you have any problems with any of the following?: No known problems In the past 12 months,have you had to go without utilities?: No Transportation Issues: No Has anyone in your support network made you feel unsafe?: No Have you or anyone in your house had to go without enough: No <ESPINOZA VERA - Last Filed: 08/30/24 16:34> - Physical Exam General Appearance: no apparent distress Eye Exam: PERRL/EOMI Ears, Nose, Throat Exam: normal ENT inspection Neck Exam: normal inspection, supple, full range of motion Respiratory Exam: normal breath sounds, lungs clear Cardiovascular Exam: regular rate/rhythm, normal heart sounds Gastrointestinal/Abdomen Exam: soft, normal bowel sounds, tenderness (Minimal tenderness right lower quadrant and suprapubic area) Back Exam: decreased range of motion, muscle spasm (Right sacroiliac area), No vertebral tenderness Extremity Exam: normal inspection, normal range of motion, pelvis stable Neurologic Exam: alert, oriented x 3, cooperative Skin Exam: normal color SpO2 Interpretation: normal SpO2: 97 O2 Delivery: Room Air <ESPINOZA VERA - Last Filed: 08/30/24 16:34> - Nursing Vital Signs Nursing Vital Signs: Initial Vital Signs Pulse Rate 73 08/30/24 15:38 Respiratory Rate 16 08/30/24 15:38 Blood Pressure 128/64 08/30/24 15:38 O2 Sat by Pulse Oximetry 91 L 08/30/24 15:38 Pain Scale Pain Intensity 8 - Course Nursing assessment & vital signs reviewed: Yes EKG Interpreted by Me: RATE (65), Sinus Rhythm, NORMAL AXIS, NORMAL INTERVALS, NORMAL QRS <ZULLY MALAVE - Last Filed: 08/30/24 20:53> Ordered Tests: Active Orders 24 hr Category Date Time Status EKG-ER Only STAT Care 08/30/24 16:13 Active IV Insertion STAT Care 08/30/24 16:13 Active NPO (ED) STAT Care 08/30/24 16:13 Active ABDOMEN AND PELVIS W/0 CONTRAS [CT] Stat Exams 08/30/24 17:46 Taken CHEST WITHOUT CONTRAST [CT] Stat Exams 08/30/24 17:46 Taken BLOOD CULTURE Stat Lab 08/30/24 20:36 Received CBC W DIFF Stat Lab 08/30/24 16:13 Completed CMP Stat Lab 08/30/24 16:30 Completed LIPASE Stat Lab 08/30/24 16:30 Completed Lactic Acid Stat Lab 08/30/24 16:13 Completed TROPONIN Q4H Lab 08/30/24 16:30 Completed TROPONIN Q4H Lab 08/30/24 19:30 Completed TROPONIN Q4H Lab 08/31/24 00:15 Ordered UA W/RFX UR CULTURE Stat Lab 08/30/24 20:43 Ordered Transfer Order Routine Transfer 08/30/24 Ordered Medication Summary Generic Name Dose Route Start Last Admin Trade Name Freq PRN Reason Stop Dose Admin Ceftriaxone Sodium 2 gm in 100 mls @ 200 mls/hr 08/30/24 20:29 Rocephin 2 Gm/100 Ml Nacl IV 08/30/24 20:58 STAT ONE Azithromycin 500 mg in 250 mls @ 250 mls/hr 08/30/24 20:29 Zithromax 500 Mg/ 250 Ml Nacl Premix IV 08/30/24 21:28 STAT STA Discontinued Medications Generic Name Dose Route Start Last Admin Trade Name Freq PRN Reason Stop Dose Admin Sodium Chloride 1,000 mls @ 999 mls/hr 08/30/24 17:47 08/30/24 19:15 Sodium Chloride 0.9% 1000 Ml IV 08/30/24 18:47 Infused .Q1H1M STA Infusion Sodium Chloride Confirm 08/30/24 18:02 Sodium Chloride 0.9% 1000 Ml Administered 08/30/24 18:03 Dose 1,000 mls @ ud .ROUTE .STK-MED ONE Morphine Sulfate 4 mg 08/30/24 16:13 08/30/24 16:49 Morphine Sulfate 4 Mg/Ml Injection IV 08/30/24 16:14 4 mg STAT ONE Administration Morphine Sulfate Confirm 08/30/24 16:45 Morphine Sulfate 4 Mg/Ml Injection Administered 08/30/24 16:46 Dose 4 mg .ROUTE .STK-MED ONE Ondansetron HCl 4 mg 08/30/24 16:13 08/30/24 16:48 Ondansetron Hcl 4 Mg/2 Ml Vial IV 08/30/24 16:14 4 mg STAT ONE Administration Ondansetron HCl Confirm 08/30/24 16:45 Ondansetron Hcl 4 Mg/2 Ml Vial Administered 08/30/24 16:46 Dose 4 mg .ROUTE .STK-MED ONE Lab/Rad Data: Laboratory Result Diagrams 08/30/24 16:13 08/30/24 16:30 Laboratory Results 08/30/24 08/30/24 08/30/24 Range/Units 19:30 16:30 16:30 WBC (4.23-9.07) x10^3/uL RBC (4.63-6.08) x10^6/uL Hgb (13.7-17.5) g/dL Hct (40.1-51.0) % MCV (79.0-92.2) fL MCH (25.7-32.2) pg MCHC (32.3-36.5) g/dL RDW (11.6-14.4) % Plt Count (163-337) x10^3/uL MPV (9.4-12.4) fL Gran % (34.0-67.9) % Immature Gran % (Auto) (0.001-0.429) % Nucleat RBC Rel Count (0.00-0.2) % Eos # (Auto) (0.04-0.54) x10^3/uL Immature Gran # (Auto) (0.001-0.031) x10^3u/L Absolute Lymphs (auto) (1.32-3.57) x10^3/uL Absolute Monos (auto) (0.30-0.82) x10^3/uL Absolute Nucleated RBC (0.00-0.012) x10^3u/L Lymphocytes % (21.8-53.1) % Monocytes % (5.3-12.2) % Eosinophils % (0.8-7.0) % Basophils % (0.2-1.2) % Absolute Granulocytes (1.78-5.38) x10^3/uL Basophils # (0.01-0.08) x10^3/uL Sodium 139 (135-145) mmol/L Potassium 5.0 (3.5-5.1) mmol/L Chloride 101 (98-107) mmol/L Carbon Dioxide 29 (22-30) mmol/L Anion Gap 14.2 (5-15) MEQ/L BUN 50 H (9-20) mg/dL Creatinine 1.62 H (0.66-1.25) mg/dL Estimated GFR 44.5 ML/MIN Glucose 63 L (74-106) mg/dL Lactic Acid (0.4-2.0) Calcium 11.0 H (8.4-10.2) mg/dL Total Bilirubin 0.60 (0.2-1.3) mg/dL AST 73 H (17-59) U/L ALT 28 (0-50) U/L Alkaline Phosphatase 68 (38-126) U/L Troponin I < 0.012 < 0.012 (0.000-0.033) ng/mL Serum Total Protein 6.9 (6.3-8.2) g/dL Albumin 4.0 (3.5-5.0) g/dL Lipase 112 (23-300) U/L 08/30/24 08/30/24 Range/Units 16:13 16:13 WBC 7.1 (4.23-9.07) x10^3/uL RBC 4.37 L (4.63-6.08) x10^6/uL Hgb 12.6 L (13.7-17.5) g/dL Hct 37.7 L (40.1-51.0) % MCV 86.3 (79.0-92.2) fL MCH 28.8 (25.7-32.2) pg MCHC 33.4 (32.3-36.5) g/dL RDW 12.5 (11.6-14.4) % Plt Count 280 (163-337) x10^3/uL MPV 8.2 L (9.4-12.4) fL Gran % 74.3 H (34.0-67.9) % Immature Gran % (Auto) 1.6 H (0.001-0.429) % Nucleat RBC Rel Count 0.0 (0.00-0.2) % Eos # (Auto) 0.02 L (0.04-0.54) x10^3/uL Immature Gran # (Auto) 0.11 H (0.001-0.031) x10^3u/L Absolute Lymphs (auto) 0.88 L (1.32-3.57) x10^3/uL Absolute Monos (auto) 0.78 (0.30-0.82) x10^3/uL Absolute Nucleated RBC 0.00 (0.00-0.012) x10^3u/L Lymphocytes % 12.4 L (21.8-53.1) % Monocytes % 11.0 (5.3-12.2) % Eosinophils % 0.3 L (0.8-7.0) % Basophils % 0.4 (0.2-1.2) % Absolute Granulocytes 5.25 (1.78-5.38) x10^3/uL Basophils # 0.03 (0.01-0.08) x10^3/uL Sodium (135-145) mmol/L Potassium (3.5-5.1) mmol/L Chloride (98-107) mmol/L Carbon Dioxide (22-30) mmol/L Anion Gap (5-15) MEQ/L BUN (9-20) mg/dL Creatinine (0.66-1.25) mg/dL Estimated GFR ML/MIN Glucose (74-106) mg/dL Lactic Acid 1.2 (0.4-2.0) Calcium (8.4-10.2) mg/dL Total Bilirubin (0.2-1.3) mg/dL AST (17-59) U/L ALT (0-50) U/L Alkaline Phosphatase (38-126) U/L Troponin I (0.000-0.033) ng/mL Serum Total Protein (6.3-8.2) g/dL Albumin (3.5-5.0) g/dL Lipase (23-300) U/L - Progress Progress: improved Counseled pt/family regarding: lab results, diagnosis, rad results <ZULLY MALAVE - Last Filed: 08/30/24 20:53> - Progress Progress Note: 74-year-old male presents to our ED for evaluation. Patient initially evaluated by . Patient endorsed to Dr. Malave at approximately [address] Malave adv ised to follow-up on pending CAT scans. CAT scan reveals bulky mediastinal lymphadenopathy, suspicion for metastatic disease/malignancy. There is right upper lobe airspace disease. Patient is known to have a pneumonia. Patient states he was diagnosed with pneumonia approximately 1 week ago and was not treated with antibiotics. Patient complains of weakness. Antibiotics initiated. CT scan also reveals hepatic hypodense lesions suspicious for metastatic disease. Of note patient was having difficulty with balance. Patient's primary care doctor ordered outpatient CT head and MRI. These 2 studies are scheduled for tomorrow. However patient requires admission for the pneumonia and generalized weakness. The studies may need to be done as an inpatient to [facility] scan also reveals distended urinary bladder. Enlarged prostate. However patient states that he urinates frequently. However patient has been here for 4 hours and has yet to urinate. UA ordered however we are still waiting for urine sample. Order placed for staff for catheterization. Suspect urinary retention based on CT scan/distended bladder Patient also has a 2.7 x 2.7 AAA. 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 Plan of care discussed with patient and his family. They agree to admission at [facility] for further evaluation and treatment. Case discussed with who accepts admission to observation at 8:21 PM. Patient will likely require outpatient oncology consultation. Portions of this note were created with voice recognition technology. There may be grammatical, spelling, punctuation or sound alike errors Complexity of problem addressed is moderate acute complicated. no critical care time. complex of data reviewed and analyzed is extensive. Test ordered test reviewed results analyzed and correlated clinically with history and physical exam. Risk of complication and or risk of morbidity/mortality of patient management is high. Patient requires hospitalization for further evaluation and treatment. Vital stable time spent in the patient is approximately 20 minutes. Plan of care established for shared decision making. No social determinants of health present to impede follow-up. O2 sat is 91 to 92%. Patient denies shortness of breath. He does not require oxygen at home. We will place 2 L nasal cannula for normalization of oxygen saturation Portions of this note were created with voice recognition technology. There may be grammatical, spelling, punctuation or sound alike errors 08/30/24 20:46 08/30/24 20:51 (ZULLY MALAVE) <ESPINOZA VERA - Last Filed: 08/30/24 16:34> - Departure Departure Disposition: Observation Critical Care Time: No <ZULLY MALAVE - Last Filed: 08/30/24 20:53> - Departure Clinical Impression: Pneumonia, Metastasis to liver, Generalized weakness, Thoracic lymphadenopathy, Urinary retention, AAA (abdominal aortic aneurysm), Hypoxia Condition: Stable Referrals: ROXANNA STILL MD [Primary Care Provider] - Follow up/PCP as directed
[2024-08-30] MEDS ORDERED: MORPHINE SULFATE 4 MG INJ ONE (16:45)
[2024-08-30] MEDS ORDERED: Zofran 4 MG/2 ML VIAL ONE (16:45)
[2024-08-30] MEDS: Zofran 4 MG/2 ML VIAL IV ONE (16:48)
[2024-08-30] MEDS: MORPHINE SULFATE 4 MG INJ IV ONE (16:49)
[2024-08-30 16:55] LABS: ANION GAP 14.2 MEQ/L (5-15); BILIRUBIN,TOTAL 0.6 mg/dL (0.2-1.3); Creatinine 1 1.62 mg/dL (0.66-1.25); EST GLOMERULAR FILTRATION RATE 44.5 ML/MIN; Total Protein 6.9 g/dL (6.3-8.2)
[2024-08-30] MEDS ORDERED: Sodium Chloride 0.9% 1000 ML 1,000 ML ONE (18:02)
[2024-08-30] MEDS: Sodium Chloride 0.9% 1000 ML 1,000 ML IV STA (18:05)
[2024-08-30] MEDS ORDERED: ROCEPHIN 2 GM/100 ML NACL 2 GM/100 ML IVPB IV ONE (20:47)
[2024-08-30] MEDS: ROCEPHIN 2 GM/100 ML NACL 2 GM/100 ML IVPB IV ONE (20:49)
[2024-08-30 20:54] LABS: Appearance Clear (Clear); Bacteria None Seen /HPF (None Seen); Bilirubin Negative (Negative); Blood Negative (Negative); Epithelial Cells None Seen /HPF (None Seen); Glucose, Urine Negative (Negative); Hyaline Casts NONE SEEN /LPF (0-2); Ketones Negative (Negative); Leukocyte Esterase Negative (Negative); Nitrite Negative (Negative); Protein,Urine Dip Negative (Negative); RBC 0-2 /HPF (0-5); Urobilinogen 0.2 mg/dL (0.2); WBC 0-2 /HPF (0-5)
[2024-08-30] MEDS ORDERED: MECLIZINE HCL 25 MG PO PRN (21:29)
[2024-08-30] MEDS ORDERED: PROVENTIL 2.5 MG/3 ML NEB IH PRN (21:30)
[2024-08-30] MEDS ORDERED: HUMALOG SQ PRN (21:33)
[2024-08-30] MEDS ORDERED: TYLENOL 325 MG PO PRN (21:33)
[2024-08-30] MEDS ORDERED: Docusate Sodium 100 MG PO PRN (21:33)
[2024-08-30] MEDS ORDERED: Zofran 4 MG/2 ML VIAL IV PRN (21:33)
[2024-08-30] MEDS ORDERED: MORPHINE SULFATE 2 MG INJ IV PRN (21:36)
--- NOTE | 2024-08-30 21:56 | PCM.HP ---
History of Present Illness - Chief Complaint Chief Complaint: Pneumonia, generalized weakness, distended bladder Date: 08/30/24 History of Present Illness: is a 74 year old male with history of hypertension, hyperlipidemia, diabetes mellitus, tobacco abuse, and COPD, and who has been having recent issues with balance and recently admitted for pneumonia, now presents with generalized ataxia and abdominal/back pain. The patient fell off of his bed a few days ago and has been complaining of pain in the right lower back. Patient reports moderate to severe intensity sharp pain in the right lower back with some radiation to the right lower quadrant. Also report having epigastric/substernal chest pain which patient is recovering from pneumonia. Patient has no fever or chills. Denies any nausea or vomiting. Patient is scheduled for outpatient CT chest, stress test and MRI of the head. Pain in the lower back is moderate to severe sharp shooting, aggravated with ambulation and partial relief with being still. No radiation to lower extremities, no loss of bowel or bladder control. No numbness tingling or weakness of lower extremities, no saddle anesthesia. He states that he has not had any rectal bleeding or change in stool caliber. He has endorsed constipation for the past few weeks to months, with one hard stool every 1-2 days. His last colonoscopy was years ago, and he said that it was clear. In the ED, he was noted to have CT findings concerning for metastatic disease (liver masses and mediastinal lymphadenopathy). He has been notified by the ED and also by me, and is aware that this will require outpatient workup. . - Review of Systems Constitutional: No Symptoms Eyes: No Symptoms Ears, Nose, & Throat: No Symptoms Respiratory: No Symptoms Cardiac: No Symptoms Abdominal/Gastrointestinal: Abdominal Pain, Constipation Genitourinary Symptoms: No Symptoms Musculoskeletal: Back Pain Skin: No Symptoms Neurological: Gait Changes, Other (generalized ataxia) Psychological: No Symptoms Endocrine: No Symptoms Hematologic/Lymphatic: No Symptoms Medications & Allergies Home Medications: Home Medication List Benazepril HCl [Lotensin] 20 mg PO HS 07/20/17 [History Confirmed 08/30/24] Metformin HCl 500 mg [Glucophage 500 MG] 1,000 mg PO BIDWM 07/20/17 [History Confirmed 08/30/24] Fenofibrate 160 mg PO DAILY 12/15/21 [History Confirmed 08/30/24] Glipizide 5 mg [Glucotrol 5 MG] 10 mg PO BID 12/15/21 [History Confirmed 08/30/24] Chlorthalidone 25 mg PO DAILY 11/16/22 [History Confirmed 08/30/24] Clopidogrel Bisulfate [PLAVIX Tablet] 75 mg PO DAILY 30 Days #30 tablet 12/10/22 [Rx Confirmed 08/30/24] Amlodipine Besylate/Benazepril [Amlodipine-Benazepril 5-20 mg] 1 tab PO DAILY 07/03/24 [History Confirmed 08/30/24] Aspirin 81 mg PO DAILY 07/03/24 [History Confirmed 08/30/24] Atorvastatin Calcium 10 mg PO DAILY 07/03/24 [History Confirmed 08/30/24] Meclizine HCl 25 mg PO DAILY PRN PRN 7 Days #7 tab.chew 08/17/24 [Rx Confirmed 08/30/24] Allergies/Adverse Reactions: Allergies Allergy/AdvReac Type Severity Reaction Status Date / Time No Known Drug Allergies Allergy Verified 08/30/24 15:42 - Past Medical History Past Medical History: Yes Neurological History: TIA ENT History: No Pertinent History Cardiac History: High Cholesterol, Hypertension Respiratory History: COPD Endocrine Medical History: Diabetes Type II Musculoskelatal History: Osteoarthritis GI Medical History: GERD History: No Pertinent History Pyscho-Social History: No Pertinent History Male Reproductive Disorders: No Pertinent History Comment: inner ear infection 07/2024, 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 - Social History Smoking Status: Current every day smoker How long have you smoked: 58 years Exposure to second hand smoke: Yes Alcohol: None Drug Use: none - Social Determinants of Health Will the patient participate in the screening: Yes Do you worry about a steady place to live?: No Do you have any problems with any of the following?: No known problems In the past 12 months,have you had to go without utilities?: No Have you or anyone in your house had to go without enough: No Transportation Issues: No Has anyone in your support network made you feel unsafe?: No Does the patient want assistance with any of the above?: No - Physical Exam Vital Signs: Vital Signs - 24 hr Temp Pulse Resp BP BP Pulse Ox 08/30/24 21:26 97.1 F 61 18 120/58 96 08/30/24 20:31 117/61 93 L 08/30/24 20:00 69 20 114/63 97 08/30/24 19:30 70 26 H 112/59 92 L 08/30/24 19:00 69 24 128/84 92 L 08/30/24 18:30 71 21 113/64 94 L 08/30/24 18:00 74 17 110/58 08/30/24 17:30 67 18 112/58 91 L 08/30/24 17:00 64 23 102/49 90 L 08/30/24 16:38 97 08/30/24 16:30 64 18 116/57 90 L 08/30/24 16:00 67 23 108/64 93 L 08/30/24 15:40 97.4 F 66 12 128/64 97 08/30/24 15:38 73 16 128/64 91 L General Appearance: no apparent distress, alert Neurologic Exam: alert, oriented x 3, cooperative, nursery rn II-XII nml as tested, normal mood/affect, nml cerebellar function Eye Exam: PERRL/EOMI, eyes nml inspection Ears, Nose, Throat Exam: normal ENT inspection Neck Exam: normal inspection, non-tender, supple, full range of motion Respiratory Exam: normal breath sounds, lungs clear Cardiovascular Exam: regular rate/rhythm, normal heart sounds Gastrointestinal/Abdomen Exam: soft, normal bowel sounds Back Exam: normal range of motion Extremity Exam: normal inspection, normal range of motion Skin Exam: normal color Results - Labs Lab/Micro Results: Lab Results-Last 24 Hours 08/30/24 08/30/24 08/30/24 Range/Units 16:13 16:13 16:30 WBC 7.1 (4.23-9.07) x10^3/uL RBC 4.37 L (4.63-6.08) x10^6/uL Hgb 12.6 L (13.7-17.5) g/dL Hct 37.7 L (40.1-51.0) % MCV 86.3 (79.0-92.2) fL MCH 28.8 (25.7-32.2) pg MCHC 33.4 (32.3-36.5) g/dL RDW 12.5 (11.6-14.4) % Plt Count 280 (163-337) x10^3/uL MPV 8.2 L (9.4-12.4) fL Gran % 74.3 H (34.0-67.9) % Immature Gran % (Auto) 1.6 H (0.001-0.429) % Nucleat RBC Rel Count 0.0 (0.00-0.2) % Eos # (Auto) 0.02 L (0.04-0.54) x10^3/uL Immature Gran # (Auto) 0.11 H (0.001-0.031) x10^3u/L Absolute Lymphs (auto) 0.88 L (1.32-3.57) x10^3/uL Absolute Monos (auto) 0.78 (0.30-0.82) x10^3/uL Absolute Nucleated RBC 0.00 (0.00-0.012) x10^3u/L Lymphocytes % 12.4 L (21.8-53.1) % Monocytes % 11.0 (5.3-12.2) % Eosinophils % 0.3 L (0.8-7.0) % Basophils % 0.4 (0.2-1.2) % Absolute Granulocytes 5.25 (1.78-5.38) x10^3/uL Basophils # 0.03 (0.01-0.08) x10^3/uL Sodium 139 (135-145) mmol/L Potassium 5.0 (3.5-5.1) mmol/L Chloride 101 (98-107) mmol/L Carbon Dioxide 29 (22-30) mmol/L Anion Gap 14.2 (5-15) MEQ/L BUN 50 H (9-20) mg/dL Creatinine 1.62 H (0.66-1.25) mg/dL Estimated GFR 44.5 ML/MIN Glucose 63 L (74-106) mg/dL Lactic Acid 1.2 (0.4-2.0) Calcium 11.0 H (8.4-10.2) mg/dL Total Bilirubin 0.60 (0.2-1.3) mg/dL AST 73 H (17-59) U/L ALT 28 (0-50) U/L Alkaline Phosphatase 68 (38-126) U/L Troponin I (0.000-0.033) ng/mL Serum Total Protein 6.9 (6.3-8.2) g/dL Albumin 4.0 (3.5-5.0) g/dL Lipase 112 (23-300) U/L Urine Color (Yellow) Urine Appearance (Clear) Urine pH (4.6-8.0) Ur Specific [place] (1.005-1.030) Urine Protein (Negative) Urine Glucose (UA) (Negative) mg/dL Urine Ketones (Negative) Urine Blood (Negative) Urine Nitrite (Negative) Urine Bilirubin (Negative) Urine Urobilinogen (0.2) mg/dL Ur Leukocyte Esterase (Negative) U Hyaline Cast (Auto) (0-2) /LPF Urine Microscopic RBC (0-5) /HPF Urine Microscopic WBC (0-5) /HPF Ur Epithelial Cells (None Seen) /HPF Urine Bacteria (None Seen) /HPF Urine Culture Reflexed (NO) 08/30/24 08/30/24 08/30/24 Range/Units 16:30 19:30 20:43 WBC (4.23-9.07) x10^3/uL RBC (4.63-6.08) x10^6/uL Hgb (13.7-17.5) g/dL Hct (40.1-51.0) % MCV (79.0-92.2) fL MCH (25.7-32.2) pg MCHC (32.3-36.5) g/dL RDW (11.6-14.4) % Plt Count (163-337) x10^3/uL MPV (9.4-12.4) fL Gran % (34.0-67.9) % Immature Gran % (Auto) (0.001-0.429) % Nucleat RBC Rel Count (0.00-0.2) % Eos # (Auto) (0.04-0.54) x10^3/uL Immature Gran # (Auto) (0.001-0.031) x10^3u/L Absolute Lymphs (auto) (1.32-3.57) x10^3/uL Absolute Monos (auto) (0.30-0.82) x10^3/uL Absolute Nucleated RBC (0.00-0.012) x10^3u/L Lymphocytes % (21.8-53.1) % Monocytes % (5.3-12.2) % Eosinophils % (0.8-7.0) % Basophils % (0.2-1.2) % Absolute Granulocytes (1.78-5.38) x10^3/uL Basophils # (0.01-0.08) x10^3/uL Sodium (135-145) mmol/L Potassium (3.5-5.1) mmol/L Chloride (98-107) mmol/L Carbon Dioxide (22-30) mmol/L Anion Gap (5-15) MEQ/L BUN (9-20) mg/dL Creatinine (0.66-1.25) mg/dL Estimated GFR ML/MIN Glucose (74-106) mg/dL Lactic Acid (0.4-2.0) Calcium (8.4-10.2) mg/dL Total Bilirubin (0.2-1.3) mg/dL AST (17-59) U/L ALT (0-50) U/L Alkaline Phosphatase (38-126) U/L Troponin I < 0.012 < 0.012 (0.000-0.033) ng/mL Serum Total Protein (6.3-8.2) g/dL Albumin (3.5-5.0) g/dL Lipase (23-300) U/L Urine Color Yellow (Yellow) Urine Appearance Clear (Clear) Urine pH 5.0 (4.6-8.0) Ur Specific [place] 1.020 (1.005-1.030) Urine Protein Negative (Negative) Urine Glucose (UA) Negative (Negative) mg/dL Urine Ketones Negative (Negative) Urine Blood Negative (Negative) Urine Nitrite Negative (Negative) Urine Bilirubin Negative (Negative) Urine Urobilinogen 0.2 (0.2) mg/dL Ur Leukocyte Esterase Negative (Negative) U Hyaline Cast (Auto) NONE SEEN (0-2) /LPF Urine Microscopic RBC 0-2 (0-5) /HPF Urine Microscopic WBC 0-2 (0-5) /HPF Ur Epithelial Cells None Seen (None Seen) /HPF Urine Bacteria None Seen (None Seen) /HPF Urine Culture Reflexed NO (NO) - Radiology Impressions Radiology Exams & Impressions: Radiology Procedures Category Date Time Status ABDOMEN AND PELVIS W/0 CONTRAS [CT] Stat Exams 08/30/24 17:46 Taken CHEST WITHOUT CONTRAST [CT] Stat Exams 08/30/24 17:46 Taken CTA HEAD W AND/OR WO CONTRAST [CT] Routine Exams 08/30/24 21:32 Ordered MRI BRAIN W/O CONTRAST [MRI] Routine Exams 08/31/24 21:31 Ordered Assessment/Plan (1) Pneumonia Current Visit: Yes Status: Acute Assessment & Plan: Acute respiratory failure with hypoxia. Wean O2 (currently on 2 LPM). IV antibiotics. Nebs. No wheezing on exam. Code(s): J18.9 - PNEUMONIA, UNSPECIFIED ORGANISM (2) YASMEEN (acute kidney injury) Current Visit: Yes Status: Acute Assessment & Plan: Hold ACEI, chlorthalidone, and diabetic medications for now. IV fluids. Monitor renal function. Code(s): N17.9 - ACUTE KIDNEY FAILURE, UNSPECIFIED (3) Liver mass Current Visit: Yes Status: Acute Assessment & Plan: Will require outpatient workup. For ataxia, PT/OT eval/treat. Will obtain MRI brain due to concerns about potential intracranial metastasis. Code(s): R16.0 - HEPATOMEGALY, NOT ELSEWHERE CLASSIFIED (4) Diabetes mellitus with hyperglycemia Current Visit: No Status: Chronic Assessment & Plan: Follow sugars on ISS. Hold metformin and sulfonurea for now. Code(s): E11.65 - TYPE 2 DIABETES MELLITUS WITH HYPERGLYCEMIA Telemedicine Encounter - Telemedicine Encounter Telemedicine Encounter: "The entirety of this encounter was performed via Telemedicine" This visit was performed using real-time audio and video connection between my location and thepatients locationwith the assistance of a surrogateat the patients location. Written or verbal consent was obtained from the patient/guardian to perform this visit [email or web address]. Any patient questions regarding the telemedicine interaction were answered.
[2024-08-30] MEDS: Mucinex 600MG ER Tabs PO SCH (22:25)
[2024-08-30] MEDS: Zithromax 500 MG/ 250 ML NaCl Premix 500 MG/250 ML IVPB IV STA (22:25)
[2024-08-30] MEDS: NORCO 5/325 MG PO PRN (23:37)
[2024-08-31 02:20] LABS: ALBUMIN 3.4 g/dL (3.5-5.0); ANION GAP 11.4 MEQ/L (5-15); BILIRUBIN,TOTAL 0.6 mg/dL (0.2-1.3); Calcium 9.7 mg/dL (8.4-10.2); Creatinine 1 1.3 mg/dL (0.66-1.25); Total Protein 6.1 g/dL (6.3-8.2)
[2024-08-31 02:39] LABS: Absolute Neutrophil Ct (ANC) 3.72 x10^3/uL (1.78-5.38); BASOPHIL % 0.2 % (0.2-1.2); Basophil (Absolute #) 0.01 x10^3/uL (0.01-0.08); Eosinophil % 0.6 % (0.8-7.0); Eosinophil (Absolute #) 0.03 x10^3/uL (0.04-0.54); Hematocrit 32.9 % (40.1-51.0); IMMATURE GRAN # 0.08 x10^3u/L (0.001-0.031); IMMATURE GRAN % 1.5 % (0.001-0.429); Lymphocyte (Absolute #) 0.83 x10^3/uL (1.32-3.57); Lymphocytes % 15.8 % (21.8-53.1); Mean Corpuscular Hemoglobin 29.1 pg (25.7-32.2); Mean Corpuscular Hgb Concent. 33.4 g/dL (32.3-36.5); Mean Platelet Volume 8.6 fL (9.4-12.4); Monocyte (Absolute #) 0.58 x10^3/uL (0.30-0.82); Neutrophil % 70.9 % (34.0-67.9); Platelet Count 252 x10^3/uL (163-337); Red Blood Count 3.78 x10^6/uL (4.63-6.08); Red Cell Distribution Width 12.6 % (11.6-14.4); White Blood Count 5.3 x10^3/uL (4.23-9.07)
[2024-08-31] MEDS ORDERED: ANTIVERT 25 MG PO PRN (07:00)
--- NOTE | 2024-08-31 08:46 | XRAY ---
Indication: Chest pain. Right lower back and abdomen pain. Multiple contiguous axial images obtained through the chest without contrast. Comparison: None Heart not enlarged. Aorta mildly arteriosclerotic without aneurysm. Bulky mediastinal and right perihilar soft tissue mass favoring lymphadenopathy worrisome for primary versus metastatic malignancy. Largest focus subcarinal measuring at least 2.5 x 4.2 cm. Right axillary lymphadenopathy demonstrates mass effect effacing right upper lobe and lesser degree right mainstem bronchi. No axillary lymphadenopathy. Lungs demonstrates moderate diffuse pulmonary emphysema with bilateral dependent atelectasis and a few incidental bilateral calcified granulomas. Posterior right upper lobe demonstrates patchy interstitial alveolar opacities. No effusion. Bony thorax intact with osteopenia and mild/moderate degenerative changes throughout the spine. Incidental 1.7 cm T12 vertebral hemangioma. CT abdomen/pelvis reported separately. Impression: 1. Bulky mediastinal and right perihilar lymphadenopathy with mass effect as detailed. Rule out primary versus metastatic malignancy. 2. Right upper lobe patchy interstitial alveolar opacities, possibly pneumonitis/pneumonia. 3. Chronic findings including pulmonary emphysema, arteriosclerotic disease, and chronic bony findings.
--- NOTE | 2024-08-31 08:50 | XRAY ---
Indication: Chest pain. Right lower back and abdomen pain. Multiple contiguous axial images obtained through the abdomen and pelvis without contrast. Comparison: None CT chest reported separately. Noncontrasted stomach and bowel loops appear nonobstructed. Right lobe liver demonstrates multiple hypodense lesions, largest 3.2 x 2.2 cm worrisome for metastasis. Left periaortic lymph node inferior to left renal vessels measuring 1.7 x 1.2 cm also concerning for metastasis. No free fluid/air. Incidental mild diffuse fatty liver, 2.6 cm right renal exophytic cyst, and enlarged prostate gland. Markedly distended urinary bladder concerning for outlet obstruction versus neurogenic bladder. Remaining gallbladder, pancreas, spleen, adrenal glands, left kidney, and ureters are unremarkable for noncontrast exam. Moderate scattered aortoiliac calcifications including both main renal arteries. 2.7 x 2.7 cm distal AAA. Osseous structures intact with osteopenia and mild/moderate multilevel thoracolumbar degenerative spondylosis. No ventral or inguinal hernias. Impression: 1. Multiple hepatic hypodense lesions worrisome for metastasis. Also periaortic enlarged node possibly metastatic as well. 2. Markedly distended urinary bladder. Rule out outlet obstruction versus neurogenic bladder. 3. Chronic findings including enlarged prostate gland, right renal cyst, arteriosclerotic disease with distal AAA, and chronic bony findings.
[2024-08-31] MEDS: ECOTRIN 81 MG PO SCH (09:38)
[2024-08-31] MEDS: Tricor 145 MG PO SCH (09:38)
[2024-08-31] MEDS: Zocor 10MG PO SCH (09:39)
[2024-08-31] MEDS: Acidophilus TABLET PO SCH (09:39)
[2024-08-31] MEDS: ENOXAPARIN SODIUM SQ SCH (09:39)
[2024-08-31] MEDS: PLAVIX Tablet PO SCH (09:39)
[2024-08-31] MEDS: NORVASC 5 MG PO SCH (09:39)
--- NOTE | 2024-08-31 09:39 | PCM.NOTE ---
Date and Time: 08/31/24 0937 Subjective Assessment: is a 74 year old male with history of hypertension, hyperlipidemia, diabetes mellitus, tobacco abuse, and COPD. He reports he has been having recent issues with balance and recently admitted for pneumonia, now presents with generalized ataxia and abdominal/back pain. The patient fell off of his bed a few days ago and has been complaining of pain in the right lower back. Patient reports moderate to severe intensity sharp pain in the right lower back with some radiation to the right lower quadrant. Also report having epigastric/substernal chest pain which patient is recovering from pneumonia. Patient has no fever or chills. Denies any nausea or vomiting. Patient is scheduled for outpatient CT chest, stress test and MRI of the head. Pain in the lower back is moderate to severe sharp shooting, aggravated with ambulation and partial relief with being still. No radiation to lower extremities, no loss of bowel or bladder control. No numbness tingling or weakness of lower extremities, no saddle anesthesia. He states that he has not had any rectal bleeding or change in stool caliber. He has endorsed constipation for the past few weeks to months, with one hard stool every 1-2 days. His last colonoscopy was years ago, and he said that it was clear. In the ED, he was noted to have CT findings concerning for metastatic disease (liver masses and mediastinal lymphadenopathy). He has been notified by the ED and also by banquet food [employer] admitting provider, and is aware that this will require outpatient workup. Today he reports urinary hesitancy and bladder scan completed post void and > 500ml. Donovan placed and there was 950ml urine output. MRI brain pending today. Continue antibiotics for pneumonia. Consider hospice care. He is currently denying any home needs. Will need OP f/u with oncology. - Review of Systems Constitutional: No Fever, No Chills Eyes: No Symptoms Ears, Nose, & Throat: No Symptoms Respiratory: No Cough, No Short Of Breath Cardiac: No Chest Pain, No Edema, No Syncope Abdominal/Gastrointestinal: No Abdominal Pain, No Nausea, No Vomiting, No Diarrhea Genitourinary Symptoms: Hesitancy, No Dysuria Musculoskeletal: No Back Pain, No Neck Pain Skin: No Rash Neurological: No Dizziness, No Focal Weakness, No Sensory Changes Psychological: No Symptoms Endocrine: No Symptoms Hematologic/Lymphatic: No Symptoms Immunological/Allergic: No Symptoms Objective Exam General Appearance: no apparent distress, alert Neurologic Exam: alert, oriented x 3, cooperative, normal mood/affect, nml cerebellar function, sensation nml, No motor deficits Skin Exam: normal color, warm, dry Eye Exam: PERRL, EOMI, eyes nml inspection Ears, Nose, Throat Exam: normal ENT inspection, pharynx normal, moist mucous membranes Neck Exam: normal inspection, non-tender, supple, full range of motion Respiratory Exam: normal breath sounds, lungs clear, No respiratory distress Cardiovascular Exam: regular rate/rhythm, normal heart sounds Gastrointestinal/Abdomen Exam: soft, No tenderness, No mass Extremity Exam: normal inspection, normal range of motion Back Exam: normal inspection, normal range of motion, No CVA tenderness, No vertebral tenderness Male Genitalia Exam: deferred Rectal Exam: deferred Objective Data Vital Signs: Vital Signs - 24 hr Temp Pulse Resp BP BP Pulse Ox 08/31/24 08:22 87 16 92 L 08/31/24 07:21 97.3 F 71 16 111/53 91 L 08/31/24 04:00 97.3 F 63 17 102/55 96 08/30/24 22:00 67 18 96 08/30/24 21:26 97.1 F 61 18 120/58 96 08/30/24 20:31 117/61 93 L 08/30/24 20:00 69 20 114/63 97 08/30/24 19:30 70 26 H 112/59 92 L 08/30/24 19:00 69 24 128/84 92 L 08/30/24 18:30 71 21 113/64 94 L 08/30/24 18:00 74 17 110/58 08/30/24 17:30 67 18 112/58 91 L 08/30/24 17:00 64 23 102/49 90 L 08/30/24 16:38 97 08/30/24 16:30 64 18 116/57 90 L 08/30/24 16:00 67 23 108/64 93 L 08/30/24 15:40 97.4 F 66 12 128/64 97 08/30/24 15:38 73 16 128/64 91 L Pain Assessment - Last Documented Pain Intensity 0 Pain Scale Used 0-10 Pain Scale Intake and Output: Intake & Output 08/28/24 08/29/24 08/30/24 08/31/24 11:59 11:59 11:59 11:59 Intake Total 440 Balance 440 Weight 68.7 kg Lab Results: Lab Results-Last 24 Hours 08/30/24 08/30/24 08/30/24 Range/Units 16:13 16:13 16:30 WBC 7.1 (4.23-9.07) x10^3/uL RBC 4.37 L (4.63-6.08) x10^6/uL Hgb 12.6 L (13.7-17.5) g/dL Hct 37.7 L (40.1-51.0) % MCV 86.3 (79.0-92.2) fL MCH 28.8 (25.7-32.2) pg MCHC 33.4 (32.3-36.5) g/dL RDW 12.5 (11.6-14.4) % Plt Count 280 (163-337) x10^3/uL MPV 8.2 L (9.4-12.4) fL Gran % 74.3 H (34.0-67.9) % Immature Gran % (Auto) 1.6 H (0.001-0.429) % Nucleat RBC Rel Count 0.0 (0.00-0.2) % Eos # (Auto) 0.02 L (0.04-0.54) x10^3/uL Immature Gran # (Auto) 0.11 H (0.001-0.031) x10^3u/L Absolute Lymphs (auto) 0.88 L (1.32-3.57) x10^3/uL Absolute Monos (auto) 0.78 (0.30-0.82) x10^3/uL Absolute Nucleated RBC 0.00 (0.00-0.012) x10^3u/L Lymphocytes % 12.4 L (21.8-53.1) % Monocytes % 11.0 (5.3-12.2) % Eosinophils % 0.3 L (0.8-7.0) % Basophils % 0.4 (0.2-1.2) % Absolute Granulocytes 5.25 (1.78-5.38) x10^3/uL Basophils # 0.03 (0.01-0.08) x10^3/uL Sodium 139 (135-145) mmol/L Potassium 5.0 (3.5-5.1) mmol/L Chloride 101 (98-107) mmol/L Carbon Dioxide 29 (22-30) mmol/L Anion Gap 14.2 (5-15) MEQ/L BUN 50 H (9-20) mg/dL Creatinine 1.62 H (0.66-1.25) mg/dL Estimated GFR 44.5 ML/MIN Glucose 63 L (74-106) mg/dL POC Glucometer (74 to 106) mg/dL Lactic Acid 1.2 (0.4-2.0) Calcium 11.0 H (8.4-10.2) mg/dL Total Bilirubin 0.60 (0.2-1.3) mg/dL AST 73 H (17-59) U/L ALT 28 (0-50) U/L Alkaline Phosphatase 68 (38-126) U/L Troponin I (0.000-0.033) ng/mL Serum Total Protein 6.9 (6.3-8.2) g/dL Albumin 4.0 (3.5-5.0) g/dL Lipase 112 (23-300) U/L Urine Color (Yellow) Urine Appearance (Clear) Urine pH (4.6-8.0) Ur Specific [place] (1.005-1.030) Urine Protein (Negative) Urine Glucose (UA) (Negative) mg/dL Urine Ketones (Negative) Urine Blood (Negative) Urine Nitrite (Negative) Urine Bilirubin (Negative) Urine Urobilinogen (0.2) mg/dL Ur Leukocyte Esterase (Negative) U Hyaline Cast (Auto) (0-2) /LPF Urine Microscopic RBC (0-5) /HPF Urine Microscopic WBC (0-5) /HPF Ur Epithelial Cells (None Seen) /HPF Urine Bacteria (None Seen) /HPF Urine Culture Reflexed (NO) 08/30/24 08/30/24 08/30/24 Range/Units 16:30 19:30 20:43 WBC (4.23-9.07) x10^3/uL RBC (4.63-6.08) x10^6/uL Hgb (13.7-17.5) g/dL Hct (40.1-51.0) % MCV (79.0-92.2) fL MCH (25.7-32.2) pg MCHC (32.3-36.5) g/dL RDW (11.6-14.4) % Plt Count (163-337) x10^3/uL MPV (9.4-12.4) fL Gran % (34.0-67.9) % Immature Gran % (Auto) (0.001-0.429) % Nucleat RBC Rel Count (0.00-0.2) % Eos # (Auto) (0.04-0.54) x10^3/uL Immature Gran # (Auto) (0.001-0.031) x10^3u/L Absolute Lymphs (auto) (1.32-3.57) x10^3/uL Absolute Monos (auto) (0.30-0.82) x10^3/uL Absolute Nucleated RBC (0.00-0.012) x10^3u/L Lymphocytes % (21.8-53.1) % Monocytes % (5.3-12.2) % Eosinophils % (0.8-7.0) % Basophils % (0.2-1.2) % Absolute Granulocytes (1.78-5.38) x10^3/uL Basophils # (0.01-0.08) x10^3/uL Sodium (135-145) mmol/L Potassium (3.5-5.1) mmol/L Chloride (98-107) mmol/L Carbon Dioxide (22-30) mmol/L Anion Gap (5-15) MEQ/L BUN (9-20) mg/dL Creatinine (0.66-1.25) mg/dL Estimated GFR ML/MIN Glucose (74-106) mg/dL POC Glucometer (74 to 106) mg/dL Lactic Acid (0.4-2.0) Calcium (8.4-10.2) mg/dL Total Bilirubin (0.2-1.3) mg/dL AST (17-59) U/L ALT (0-50) U/L Alkaline Phosphatase (38-126) U/L Troponin I < 0.012 < 0.012 (0.000-0.033) ng/mL Serum Total Protein (6.3-8.2) g/dL Albumin (3.5-5.0) g/dL Lipase (23-300) U/L Urine Color Yellow (Yellow) Urine Appearance Clear (Clear) Urine pH 5.0 (4.6-8.0) Ur Specific [place] 1.020 (1.005-1.030) Urine Protein Negative (Negative) Urine Glucose (UA) Negative (Negative) mg/dL Urine Ketones Negative (Negative) Urine Blood Negative (Negative) Urine Nitrite Negative (Negative) Urine Bilirubin Negative (Negative) Urine Urobilinogen 0.2 (0.2) mg/dL Ur Leukocyte Esterase Negative (Negative) U Hyaline Cast (Auto) NONE SEEN (0-2) /LPF Urine Microscopic RBC 0-2 (0-5) /HPF Urine Microscopic WBC 0-2 (0-5) /HPF Ur Epithelial Cells None Seen (None Seen) /HPF Urine Bacteria None Seen (None Seen) /HPF Urine Culture Reflexed NO (NO) 08/30/24 08/30/24 08/31/24 Range/Units 22:03 23:55 01:21 WBC (4.23-9.07) x10^3/uL RBC (4.63-6.08) x10^6/uL Hgb (13.7-17.5) g/dL Hct (40.1-51.0) % MCV (79.0-92.2) fL MCH (25.7-32.2) pg MCHC (32.3-36.5) g/dL RDW (11.6-14.4) % Plt Count (163-337) x10^3/uL MPV (9.4-12.4) fL Gran % (34.0-67.9) % Immature Gran % (Auto) (0.001-0.429) % Nucleat RBC Rel Count (0.00-0.2) % Eos # (Auto) (0.04-0.54) x10^3/uL Immature Gran # (Auto) (0.001-0.031) x10^3u/L Absolute Lymphs (auto) (1.32-3.57) x10^3/uL Absolute Monos (auto) (0.30-0.82) x10^3/uL Absolute Nucleated RBC (0.00-0.012) x10^3u/L Lymphocytes % (21.8-53.1) % Monocytes % (5.3-12.2) % Eosinophils % (0.8-7.0) % Basophils % (0.2-1.2) % Absolute Granulocytes (1.78-5.38) x10^3/uL Basophils # (0.01-0.08) x10^3/uL Sodium (135-145) mmol/L Potassium (3.5-5.1) mmol/L Chloride (98-107) mmol/L Carbon Dioxide (22-30) mmol/L Anion Gap (5-15) MEQ/L BUN (9-20) mg/dL Creatinine (0.66-1.25) mg/dL Estimated GFR ML/MIN Glucose (74-106) mg/dL POC Glucometer 58 L 57 L 66 L (74 to 106) mg/dL Lactic Acid (0.4-2.0) Calcium (8.4-10.2) mg/dL Total Bilirubin (0.2-1.3) mg/dL AST (17-59) U/L ALT (0-50) U/L Alkaline Phosphatase (38-126) U/L Troponin I (0.000-0.033) ng/mL Serum Total Protein (6.3-8.2) g/dL Albumin (3.5-5.0) g/dL Lipase (23-300) U/L Urine Color (Yellow) Urine Appearance (Clear) Urine pH (4.6-8.0) Ur Specific [place] (1.005-1.030) Urine Protein (Negative) Urine Glucose (UA) (Negative) mg/dL Urine Ketones (Negative) Urine Blood (Negative) Urine Nitrite (Negative) Urine Bilirubin (Negative) Urine Urobilinogen (0.2) mg/dL Ur Leukocyte Esterase (Negative) U Hyaline Cast (Auto) (0-2) /LPF Urine Microscopic RBC (0-5) /HPF Urine Microscopic WBC (0-5) /HPF Ur Epithelial Cells (None Seen) /HPF Urine Bacteria (None Seen) /HPF Urine Culture Reflexed (NO) 08/31/24 08/31/24 08/31/24 Range/Units 01:41 01:41 01:41 WBC 5.3 (4.23-9.07) x10^3/uL RBC 3.78 L (4.63-6.08) x10^6/uL Hgb 11.0 L (13.7-17.5) g/dL Hct 32.9 L (40.1-51.0) % MCV 87.0 (79.0-92.2) fL MCH 29.1 (25.7-32.2) pg MCHC 33.4 (32.3-36.5) g/dL RDW 12.6 (11.6-14.4) % Plt Count 252 (163-337) x10^3/uL MPV 8.6 L (9.4-12.4) fL Gran % 70.9 H (34.0-67.9) % Immature Gran % (Auto) 1.5 H (0.001-0.429) % Nucleat RBC Rel Count 0.0 (0.00-0.2) % Eos # (Auto) 0.03 L (0.04-0.54) x10^3/uL Immature Gran # (Auto) 0.08 H (0.001-0.031) x10^3u/L Absolute Lymphs (auto) 0.83 L (1.32-3.57) x10^3/uL Absolute Monos (auto) 0.58 (0.30-0.82) x10^3/uL Absolute Nucleated RBC 0.00 (0.00-0.012) x10^3u/L Lymphocytes % 15.8 L (21.8-53.1) % Monocytes % 11.0 (5.3-12.2) % Eosinophils % 0.6 L (0.8-7.0) % Basophils % 0.2 (0.2-1.2) % Absolute Granulocytes 3.72 (1.78-5.38) x10^3/uL Basophils # 0.01 (0.01-0.08) x10^3/uL Sodium 137 (135-145) mmol/L Potassium 4.0 (3.5-5.1) mmol/L Chloride 105 (98-107) mmol/L Carbon Dioxide 25 (22-30) mmol/L Anion Gap 11.4 (5-15) MEQ/L BUN 46 H (9-20) mg/dL Creatinine 1.30 H (0.66-1.25) mg/dL Estimated GFR 58.0 ML/MIN Glucose 70 L (74-106) mg/dL POC Glucometer (74 to 106) mg/dL Lactic Acid (0.4-2.0) Calcium 9.7 (8.4-10.2) mg/dL Total Bilirubin 0.60 (0.2-1.3) mg/dL AST 75 H (17-59) U/L ALT 24 (0-50) U/L Alkaline Phosphatase 58 (38-126) U/L Troponin I < 0.012 (0.000-0.033) ng/mL Serum Total Protein 6.1 L (6.3-8.2) g/dL Albumin 3.4 L (3.5-5.0) g/dL Lipase (23-300) U/L Urine Color (Yellow) Urine Appearance (Clear) Urine pH (4.6-8.0) Ur Specific [place] (1.005-1.030) Urine Protein (Negative) Urine Glucose (UA) (Negative) mg/dL Urine Ketones (Negative) Urine Blood (Negative) Urine Nitrite (Negative) Urine Bilirubin (Negative) Urine Urobilinogen (0.2) mg/dL Ur Leukocyte Esterase (Negative) U Hyaline Cast (Auto) (0-2) /LPF Urine Microscopic RBC (0-5) /HPF Urine Microscopic WBC (0-5) /HPF Ur Epithelial Cells (None Seen) /HPF Urine Bacteria (None Seen) /HPF Urine Culture Reflexed (NO) 08/31/24 08/31/24 08/31/24 Range/Units 04:13 05:46 07:11 WBC (4.23-9.07) x10^3/uL RBC (4.63-6.08) x10^6/uL Hgb (13.7-17.5) g/dL Hct (40.1-51.0) % MCV (79.0-92.2) fL MCH (25.7-32.2) pg MCHC (32.3-36.5) g/dL RDW (11.6-14.4) % Plt Count (163-337) x10^3/uL MPV (9.4-12.4) fL Gran % (34.0-67.9) % Immature Gran % (Auto) (0.001-0.429) % Nucleat RBC Rel Count (0.00-0.2) % Eos # (Auto) (0.04-0.54) x10^3/uL Immature Gran # (Auto) (0.001-0.031) x10^3u/L Absolute Lymphs (auto) (1.32-3.57) x10^3/uL Absolute Monos (auto) (0.30-0.82) x10^3/uL Absolute Nucleated RBC (0.00-0.012) x10^3u/L Lymphocytes % (21.8-53.1) % Monocytes % (5.3-12.2) % Eosinophils % (0.8-7.0) % Basophils % (0.2-1.2) % Absolute Granulocytes (1.78-5.38) x10^3/uL Basophils # (0.01-0.08) x10^3/uL Sodium (135-145) mmol/L Potassium (3.5-5.1) mmol/L Chloride (98-107) mmol/L Carbon Dioxide (22-30) mmol/L Anion Gap (5-15) MEQ/L BUN (9-20) mg/dL Creatinine (0.66-1.25) mg/dL Estimated GFR ML/MIN Glucose (74-106) mg/dL POC Glucometer 63 L 104 114 H (74 to 106) mg/dL Lactic Acid (0.4-2.0) Calcium (8.4-10.2) mg/dL Total Bilirubin (0.2-1.3) mg/dL AST (17-59) U/L ALT (0-50) U/L Alkaline Phosphatase (38-126) U/L Troponin I (0.000-0.033) ng/mL Serum Total Protein (6.3-8.2) g/dL Albumin (3.5-5.0) g/dL Lipase (23-300) U/L Urine Color (Yellow) Urine Appearance (Clear) Urine pH (4.6-8.0) Ur Specific [place] (1.005-1.030) Urine Protein (Negative) Urine Glucose (UA) (Negative) mg/dL Urine Ketones (Negative) Urine Blood (Negative) Urine Nitrite (Negative) Urine Bilirubin (Negative) Urine Urobilinogen (0.2) mg/dL Ur Leukocyte Esterase (Negative) U Hyaline Cast (Auto) (0-2) /LPF Urine Microscopic RBC (0-5) /HPF Urine Microscopic WBC (0-5) /HPF Ur Epithelial Cells (None Seen) /HPF Urine Bacteria (None Seen) /HPF Urine Culture Reflexed (NO) Radiology Exams: Radiology Procedures Category Date Time Status ABDOMEN AND PELVIS W/0 CONTRAS [CT] Stat Exams 08/30/24 17:46 Completed CHEST WITHOUT CONTRAST [CT] Stat Exams 08/30/24 17:46 Completed MRI BRAIN W/O CONTRAST [MRI] Routine Exams 08/31/24 21:31 Ordered Assessment/Plan (1) Pneumonia Current Visit: Yes Status: Acute Assessment & Plan: - Acute respiratory failure with hypoxia. - Wean O2 (currently on 2 LPM). - Tele - IV antibiotics. Nebs. - RA 91% this AM - CBC, CMP reviewed - PT eval - CT chest reviewed: Impression: 1. Bulky mediastinal and right perihilar lymphadenopathy with mass effect as detailed. Rule out primary versus metastatic malignancy. 2. Right upper lobe patchy interstitial alveolar opacities, possibly pneumonitis/pneumonia. 3. Chronic findings including pulmonary emphysema, arteriosclerotic disease, and chronic bony findings. Code(s): J18.9 - PNEUMONIA, UNSPECIFIED ORGANISM (2) YASMEEN (acute kidney injury) Current Visit: Yes Status: Acute Assessment & Plan: -Hold ACEI, chlorthalidone, and diabetic medications for now. - IV fluids. - Monitor renal function. - Creat 1.30- baseline 1.10 - Donovan placed for urinary retention Code(s): N17.9 - ACUTE KIDNEY FAILURE, UNSPECIFIED (3) Liver mass Current Visit: Yes Status: Acute Assessment & Plan: - Will require outpatient workup. For ataxia, PT/OT eval/treat. Will obtain MRI brain due to concerns about potential intracranial metastasis. Code(s): R16.0 - HEPATOMEGALY, NOT ELSEWHERE CLASSIFIED (4) Diabetes mellitus with hyperglycemia Current Visit: No Status: Chronic Assessment & Plan: - Follow sugars on ISS., acucchecks ac/hs - Hold metformin and sulfonurea for now. Code(s): E11.65 - TYPE 2 DIABETES MELLITUS WITH HYPERGLYCEMIA (5) Urinary retention Current Visit: Yes Status: Acute Assessment & Plan: - bladder scan post void - Donovan place- 950 out - urinary retention seen on CT scan of Abd Impression: 1. Multiple hepatic hypodense lesions worrisome for metastasis. Also periaortic enlarged node possibly metastatic as well. 2. Markedly distended urinary bladder. Rule out outlet obstruction versus neurogenic bladder. 3. Chronic findings including enlarged prostate gland, right renal cyst, arteriosclerotic disease with distal AAA, and chronic bony findings. VTE: Plavix PPI: Protonix Next of KIN: Payton, Ida Valdes, D/C plan: 1-2 days Code status: Full Code(s): R33.9 - RETENTION OF URINE, UNSPECIFIED
[2024-08-31] MEDS ORDERED: NON-FORMULARY ITEM (Atorvastatin Calcium [Atorvastatin Calcium] 10 MG Tablet) PO SCH (10:00)
[2024-08-31] MEDS ORDERED: NON-FORMULARY ITEM (Fenofibrate [Fenofibrate] 160 MG Tablet) PO SCH (10:00)
[2024-08-31] MEDS ORDERED: BABY ASPIRIN 81 MG CHEW PO SCH (10:00)
--- NOTE | 2024-08-31 15:52 | XRAY ---
Indication: Ataxia. New likely malignancy seen on CT chest, abdomen, pelvis exam. Sagittal, coronal, and axial MRI brain performed without contrast using T1, T2, FLAIR, diffusion, and ADC sequences. Comparison: December 16, 2021 Again age-appropriate global atrophy. Medial left cerebellum demonstrates new mass measuring at least 2.4 x 2.9 x 2.4 cm. There is moderate surrounding vasogenic edema with effacement fourth ventricle without hydrocephalus and minimal effacement brainstem. Lack of contrast precludes further characterization. No acute intracranial hemorrhage or abnormal extra-axial fluid collection. Diffusion images negative for restricted signal. 7/8 cranial nerve complex bilaterally symmetric. Normal flow void signal within the major intracerebral circulation. Normal appearing sella turcica. Paranasal sinuses are clear. 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 Given recent CT findings, metastasis is of primary concern. Contrasted exam may yield further information.
[2024-08-31] MEDS: Flomax 0.4 MG PO SCH (16:03)
--- NOTE | 2024-08-31 17:52 | PCM.DS ---
Discharge Summary Date of Admission: 08/30/24 21:05 Date of Discharge: 08/31/24 Admitting Physician: CONTRERAS BARNES MD Primary Care Provider: ROXANNA STILL Allergies Allergies No Known Drug Allergies Allergy (Verified 08/30/24 15:42) Hospital Summary - Hospital Course Hospital Course: is a 74 year old male with history of hypertension, hyperlipidemia, diabetes mellitus, tobacco abuse, and COPD. He reports he has been having recent issues with balance and recently admitted for pneumonia, now presents with generalized ataxia and abdominal/back pain. The patient fell off of his bed a few days ago and has been complaining of pain in the right lower back. Patient reports moderate to severe intensity sharp pain in the right lower back with some radiation to the right lower quadrant. Also report having epigastric/substernal chest pain which patient is recovering from pneumonia. Patient has no fever or chills. Denies any nausea or vomiting. Patient is scheduled for outpatient CT chest, stress test and MRI of the head. Pain in the lower back is moderate to severe sharp shooting, aggravated with ambulation and partial relief with being still. No radiation to lower extremities, no loss of bowel or bladder control. No numbness tingling or weakness of lower extremities, no saddle anesthesia. He states that he has not had any rectal bleeding or change in stool caliber. He has endorsed constipation for the past few weeks to months, with one hard stool every 1-2 days. His last colonoscopy was years ago, and he said that it was clear. In the ED, he was noted to have CT findings concerning for metastatic disease (liver masses and mediastinal lymphadenopathy). He has been notified by the ED and also by shooter's helper adm itting provider, and is aware that this will require outpatient workup. Today he reports urinary hesitancy and bladder scan completed post void and > 500ml. Donovan placed and there was 950ml urine output. Continue antibiotics for pneumonia. Consider hospice care. He is currently denying any home needs. Will need OP f/u with oncology. 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 Given recent CT findings, metastasis is of primary concern. C ontrasted exam may yield further information. Pt to transfer to high level of care for new findings. - Vitals & Intake/Output Vital Signs: Vital Signs Temperature 97 F 08/31/24 16:00 Pulse Rate 75 12/05/24 16:00 Respiratory Rate 16 08/31/24 16:00 Blood Pressure 119/57 08/31/24 16:00 O2 Sat by Pulse Oximetry 92 L 08/31/24 16:00 Intake & Output: Intake & Output 08/29/24 08/30/24 08/31/24 09/01/24 11:59 11:59 11:59 11:59 Intake Total 500 120 Output Total 930 300 Balance -430 -180 Weight 68.7 kg - Lab Result Diagrams: 08/31/24 01:41 08/31/24 01:41 Lab Results-Last 24 Hrs: Lab Results-Last 24 Hours 08/30/24 08/30/24 08/30/24 Range/Units 19:30 20:43 22:03 WBC (4.23-9.07) x10^3/uL RBC (4.63-6.08) x10^6/uL Hgb (13.7-17.5) g/dL Hct (40.1-51.0) % MCV (79.0-92.2) fL MCH (25.7-32.2) pg MCHC (32.3-36.5) g/dL RDW (11.6-14.4) % Plt Count (163-337) x10^3/uL MPV (9.4-12.4) fL Gran % (34.0-67.9) % Immature Gran % (Auto) (0.001-0.429) % Nucleat RBC Rel Count (0.00-0.2) % Eos # (Auto) (0.04-0.54) x10^3/uL Immature Gran # (Auto) (0.001-0.031) x10^3u/L Absolute Lymphs (auto) (1.32-3.57) x10^3/uL Absolute Monos (auto) (0.30-0.82) x10^3/uL Absolute Nucleated RBC (0.00-0.012) x10^3u/L Lymphocytes % (21.8-53.1) % Monocytes % (5.3-12.2) % Eosinophils % (0.8-7.0) % Basophils % (0.2-1.2) % Absolute Granulocytes (1.78-5.38) x10^3/uL Basophils # (0.01-0.08) x10^3/uL Sodium (135-145) mmol/L Potassium (3.5-5.1) mmol/L Chloride (98-107) mmol/L Carbon Dioxide (22-30) mmol/L Anion Gap (5-15) MEQ/L BUN (9-20) mg/dL Creatinine (0.66-1.25) mg/dL Estimated GFR ML/MIN Glucose (74-106) mg/dL POC Glucometer 58 L (74 to 106) mg/dL Calcium (8.4-10.2) mg/dL Total Bilirubin (0.2-1.3) mg/dL AST (17-59) U/L ALT (0-50) U/L Alkaline Phosphatase (38-126) U/L Troponin I < 0.012 (0.000-0.033) ng/mL Serum Total Protein (6.3-8.2) g/dL Albumin (3.5-5.0) g/dL Urine Color Yellow (Yellow) Urine Appearance Clear (Clear) Urine pH 5.0 (4.6-8.0) Ur Specific [place] 1.020 (1.005-1.030) Urine Protein Negative (Negative) Urine Glucose (UA) Negative (Negative) mg/dL Urine Ketones Negative (Negative) Urine Blood Negative (Negative) Urine Nitrite Negative (Negative) Urine Bilirubin Negative (Negative) Urine Urobilinogen 0.2 (0.2) mg/dL Ur Leukocyte Esterase Negative (Negative) U Hyaline Cast (Auto) NONE SEEN (0-2) /LPF Urine Microscopic RBC 0-2 (0-5) /HPF Urine Microscopic WBC 0-2 (0-5) /HPF Ur Epithelial Cells None Seen (None Seen) /HPF Urine Bacteria None Seen (None Seen) /HPF Urine Culture Reflexed NO (NO) 08/30/24 08/31/24 08/31/24 Range/Units 23:55 01:21 01:41 WBC (4.23-9.07) x10^3/uL RBC (4.63-6.08) x10^6/uL Hgb (13.7-17.5) g/dL Hct (40.1-51.0) % MCV (79.0-92.2) fL MCH (25.7-32.2) pg MCHC (32.3-36.5) g/dL RDW (11.6-14.4) % Plt Count (163-337) x10^3/uL MPV (9.4-12.4) fL Gran % (34.0-67.9) % Immature Gran % (Auto) (0.001-0.429) % Nucleat RBC Rel Count (0.00-0.2) % Eos # (Auto) (0.04-0.54) x10^3/uL Immature Gran # (Auto) (0.001-0.031) x10^3u/L Absolute Lymphs (auto) (1.32-3.57) x10^3/uL Absolute Monos (auto) (0.30-0.82) x10^3/uL Absolute Nucleated RBC (0.00-0.012) x10^3u/L Lymphocytes % (21.8-53.1) % Monocytes % (5.3-12.2) % Eosinophils % (0.8-7.0) % Basophils % (0.2-1.2) % Absolute Granulocytes (1.78-5.38) x10^3/uL Basophils # (0.01-0.08) x10^3/uL Sodium (135-145) mmol/L Potassium (3.5-5.1) mmol/L Chloride (98-107) mmol/L Carbon Dioxide (22-30) mmol/L Anion Gap (5-15) MEQ/L BUN (9-20) mg/dL Creatinine (0.66-1.25) mg/dL Estimated GFR ML/MIN Glucose (74-106) mg/dL POC Glucometer 57 L 66 L (74 to 106) mg/dL Calcium (8.4-10.2) mg/dL Total Bilirubin (0.2-1.3) mg/dL AST (17-59) U/L ALT (0-50) U/L Alkaline Phosphatase (38-126) U/L Troponin I < 0.012 (0.000-0.033) ng/mL Serum Total Protein (6.3-8.2) g/dL Albumin (3.5-5.0) g/dL Urine Color (Yellow) Urine Appearance (Clear) Urine pH (4.6-8.0) Ur Specific [place] (1.005-1.030) Urine Protein (Negative) Urine Glucose (UA) (Negative) mg/dL Urine Ketones (Negative) Urine Blood (Negative) Urine Nitrite (Negative) Urine Bilirubin (Negative) Urine Urobilinogen (0.2) mg/dL Ur Leukocyte Esterase (Negative) U Hyaline Cast (Auto) (0-2) /LPF Urine Microscopic RBC (0-5) /HPF Urine Microscopic WBC (0-5) /HPF Ur Epithelial Cells (None Seen) /HPF Urine Bacteria (None Seen) /HPF Urine Culture Reflexed (NO) 08/31/24 08/31/24 08/31/24 Range/Units 01:41 01:41 04:13 WBC 5.3 (4.23-9.07) x10^3/uL RBC 3.78 L (4.63-6.08) x10^6/uL Hgb 11.0 L (13.7-17.5) g/dL Hct 32.9 L (40.1-51.0) % MCV 87.0 (79.0-92.2) fL MCH 29.1 (25.7-32.2) pg MCHC 33.4 (32.3-36.5) g/dL RDW 12.6 (11.6-14.4) % Plt Count 252 (163-337) x10^3/uL MPV 8.6 L (9.4-12.4) fL Gran % 70.9 H (34.0-67.9) % Immature Gran % (Auto) 1.5 H (0.001-0.429) % Nucleat RBC Rel Count 0.0 (0.00-0.2) % Eos # (Auto) 0.03 L (0.04-0.54) x10^3/uL Immature Gran # (Auto) 0.08 H (0.001-0.031) x10^3u/L Absolute Lymphs (auto) 0.83 L (1.32-3.57) x10^3/uL Absolute Monos (auto) 0.58 (0.30-0.82) x10^3/uL Absolute Nucleated RBC 0.00 (0.00-0.012) x10^3u/L Lymphocytes % 15.8 L (21.8-53.1) % Monocytes % 11.0 (5.3-12.2) % Eosinophils % 0.6 L (0.8-7.0) % Basophils % 0.2 (0.2-1.2) % Absolute Granulocytes 3.72 (1.78-5.38) x10^3/uL Basophils # 0.01 (0.01-0.08) x10^3/uL Sodium 137 (135-145) mmol/L Potassium 4.0 (3.5-5.1) mmol/L Chloride 105 (98-107) mmol/L Carbon Dioxide 25 (22-30) mmol/L Anion Gap 11.4 (5-15) MEQ/L BUN 46 H (9-20) mg/dL Creatinine 1.30 H (0.66-1.25) mg/dL Estimated GFR 58.0 ML/MIN Glucose 70 L (74-106) mg/dL POC Glucometer 63 L (74 to 106) mg/dL Calcium 9.7 (8.4-10.2) mg/dL Total Bilirubin 0.60 (0.2-1.3) mg/dL AST 75 H (17-59) U/L ALT 24 (0-50) U/L Alkaline Phosphatase 58 (38-126) U/L Troponin I (0.000-0.033) ng/mL Serum Total Protein 6.1 L (6.3-8.2) g/dL Albumin 3.4 L (3.5-5.0) g/dL Urine Color (Yellow) Urine Appearance (Clear) Urine pH (4.6-8.0) Ur Specific [place] (1.005-1.030) Urine Protein (Negative) Urine Glucose (UA) (Negative) mg/dL Urine Ketones (Negative) Urine Blood (Negative) Urine Nitrite (Negative) Urine Bilirubin (Negative) Urine Urobilinogen (0.2) mg/dL Ur Leukocyte Esterase (Negative) U Hyaline Cast (Auto) (0-2) /LPF Urine Microscopic RBC (0-5) /HPF Urine Microscopic WBC (0-5) /HPF Ur Epithelial Cells (None Seen) /HPF Urine Bacteria (None Seen) /HPF Urine Culture Reflexed (NO) 08/31/24 08/31/24 08/31/24 Range/Units 05:46 07:11 11:01 WBC (4.23-9.07) x10^3/uL RBC (4.63-6.08) x10^6/uL Hgb (13.7-17.5) g/dL Hct (40.1-51.0) % MCV (79.0-92.2) fL MCH (25.7-32.2) pg MCHC (32.3-36.5) g/dL RDW (11.6-14.4) % Plt Count (163-337) x10^3/uL MPV (9.4-12.4) fL Gran % (34.0-67.9) % Immature Gran % (Auto) (0.001-0.429) % Nucleat RBC Rel Count (0.00-0.2) % Eos # (Auto) (0.04-0.54) x10^3/uL Immature Gran # (Auto) (0.001-0.031) x10^3u/L Absolute Lymphs (auto) (1.32-3.57) x10^3/uL Absolute Monos (auto) (0.30-0.82) x10^3/uL Absolute Nucleated RBC (0.00-0.012) x10^3u/L Lymphocytes % (21.8-53.1) % Monocytes % (5.3-12.2) % Eosinophils % (0.8-7.0) % Basophils % (0.2-1.2) % Absolute Granulocytes (1.78-5.38) x10^3/uL Basophils # (0.01-0.08) x10^3/uL Sodium (135-145) mmol/L Potassium (3.5-5.1) mmol/L Chloride (98-107) mmol/L Carbon Dioxide (22-30) mmol/L Anion Gap (5-15) MEQ/L BUN (9-20) mg/dL Creatinine (0.66-1.25) mg/dL Estimated GFR ML/MIN Glucose (74-106) mg/dL POC Glucometer 104 114 H 129 H (74 to 106) mg/dL Calcium (8.4-10.2) mg/dL Total Bilirubin (0.2-1.3) mg/dL AST (17-59) U/L ALT (0-50) U/L Alkaline Phosphatase (38-126) U/L Troponin I (0.000-0.033) ng/mL Serum Total Protein (6.3-8.2) g/dL Albumin (3.5-5.0) g/dL Urine Color (Yellow) Urine Appearance (Clear) Urine pH (4.6-8.0) Ur Specific [place] (1.005-1.030) Urine Protein (Negative) Urine Glucose (UA) (Negative) mg/dL Urine Ketones (Negative) Urine Blood (Negative) Urine Nitrite (Negative) Urine Bilirubin (Negative) Urine Urobilinogen (0.2) mg/dL Ur Leukocyte Esterase (Negative) U Hyaline Cast (Auto) (0-2) /LPF Urine Microscopic RBC (0-5) /HPF Urine Microscopic WBC (0-5) /HPF Ur Epithelial Cells (None Seen) /HPF Urine Bacteria (None Seen) /HPF Urine Culture Reflexed (NO) 08/31/24 Range/Units 16:16 WBC (4.23-9.07) x10^3/uL RBC (4.63-6.08) x10^6/uL Hgb (13.7-17.5) g/dL Hct (40.1-51.0) % MCV (79.0-92.2) fL MCH (25.7-32.2) pg MCHC (32.3-36.5) g/dL RDW (11.6-14.4) % Plt Count (163-337) x10^3/uL MPV (9.4-12.4) fL Gran % (34.0-67.9) % Immature Gran % (Auto) (0.001-0.429) % Nucleat RBC Rel Count (0.00-0.2) % Eos # (Auto) (0.04-0.54) x10^3/uL Immature Gran # (Auto) (0.001-0.031) x10^3u/L Absolute Lymphs (auto) (1.32-3.57) x10^3/uL Absolute Monos (auto) (0.30-0.82) x10^3/uL Absolute Nucleated RBC (0.00-0.012) x10^3u/L Lymphocytes % (21.8-53.1) % Monocytes % (5.3-12.2) % Eosinophils % (0.8-7.0) % Basophils % (0.2-1.2) % Absolute Granulocytes (1.78-5.38) x10^3/uL Basophils # (0.01-0.08) x10^3/uL Sodium (135-145) mmol/L Potassium (3.5-5.1) mmol/L Chloride (98-107) mmol/L Carbon Dioxide (22-30) mmol/L Anion Gap (5-15) MEQ/L BUN (9-20) mg/dL Creatinine (0.66-1.25) mg/dL Estimated GFR ML/MIN Glucose (74-106) mg/dL POC Glucometer 147 H (74 to 106) mg/dL Calcium (8.4-10.2) mg/dL Total Bilirubin (0.2-1.3) mg/dL AST (17-59) U/L ALT (0-50) U/L Alkaline Phosphatase (38-126) U/L Troponin I (0.000-0.033) ng/mL Serum Total Protein (6.3-8.2) g/dL Albumin (3.5-5.0) g/dL Urine Color (Yellow) Urine Appearance (Clear) Urine pH (4.6-8.0) Ur Specific [place] (1.005-1.030) Urine Protein (Negative) Urine Glucose (UA) (Negative) mg/dL Urine Ketones (Negative) Urine Blood (Negative) Urine Nitrite (Negative) Urine Bilirubin (Negative) Urine Urobilinogen (0.2) mg/dL Ur Leukocyte Esterase (Negative) U Hyaline Cast (Auto) (0-2) /LPF Urine Microscopic RBC (0-5) /HPF Urine Microscopic WBC (0-5) /HPF Ur Epithelial Cells (None Seen) /HPF Urine Bacteria (None Seen) /HPF Urine Culture Reflexed (NO) Micro Results-Entire Visit: Accuchecks Date 08/31/24 Date 08/31/24 Date 08/31/24 Time 16:32 - Radiology Exams Ordered Rad Exams-Entire Visit: Radiology Procedures Category Date Time Status ABDOMEN AND PELVIS W/0 CONTRAS [CT] Stat Exams 08/30/24 17:46 Completed CHEST WITHOUT CONTRAST [CT] Stat Exams 08/30/24 17:46 Completed MRI BRAIN W/O CONTRAST [MRI] Routine Exams 08/31/24 21:31 Completed - Procedures and Test Procedures and Tests throughout Hospitalization: Therapy Orders & Screens 08/30/24 21:33 PT Eval & Treat ( Order) ONCE Reason for Eval:: ataxia Diagnosis: Pneumonia, generalized weakness, distended bladder OT Eval and Treat ( Order) ONCE Comment: Physician Instructions: Reason For Exam: Diagnosis: Pneumonia, generalized weakness, distended bladder 08/30/24 22:51 Oxygen Nasal Cannula 2 lpm Comment: Diagnosis: Pneumonia, generalized weakness, distended bladder Respiratory Therapy Assessment DAILY Comment: Diagnosis: Pneumonia, generalized weakness, distended bladder Discharge Exam General Appearance: no apparent distress, alert Neurologic Exam: alert, oriented x 3, cooperative, normal mood/affect, abnormal gait, abnormal cerebellar tests, abnormal sexton helper II-XII, No motor deficits Eye Exam: PERRL, EOMI, eyes nml inspection Ears, Nose, Throat Exam: normal ENT inspection, pharynx normal, moist mucous membranes Neck Exam: normal inspection, non-tender, supple, full range of motion Respiratory Exam: normal breath sounds, lungs clear, No respiratory distress Cardiovascular Exam: regular rate/rhythm, normal heart sounds Gastrointestinal/Abdomen Exam: soft, No tenderness, No mass Male Genitalia Exam: deferred Rectal Exam: deferred Back Exam: normal inspection, normal range of motion, No CVA tenderness, No vertebral tenderness Extremity Exam: normal inspection, normal range of motion Skin Exam: normal color, warm, dry Final Diagnosis/Problem List - Final Discharge Diagnosis/Problem (1) Pneumonia Current Visit: Yes Status: Acute Code(s): J18.9 - PNEUMONIA, UNSPECIFIED OR GANISM (2) YASMEEN (acute kidney injury) Current Visit: Yes Status: Acute Code(s): N17.9 - ACUTE KIDNEY FAILURE, UNSPECIFIED (3) Liver mass Current Visit: Yes Status: Acute Code(s): R16.0 - HEPATOMEGALY, NOT ELSE WHERE CLASSIFIED (4) Diabetes mellitus with hyperglycemia Current Visit: No Status: Chronic Code(s): E11.65 - TYPE 2 DIABETES MELLITUS WITH HYPERGLYCEMIA (5) Urinary retention Current Visit: Yes Status: Acute Assessment & Plan: (1) Pneumonia Current Visit: Yes Status: Acute Assessment & Plan: - Acute respiratory failure with hypoxia. - Wean O2 (currently on 2 LPM). - Tele - IV antibiotics. Nebs. - RA 91% this AM - CBC, CMP reviewed - PT eval - CT chest reviewed: Impression: 1. Bulky mediastinal and right perihilar lymphadenopathy with mass effect as detailed. Rule out primary versus metastatic malignancy. 2. Right upper lobe patchy interstitial alveolar opacities, possibly pneumonitis/pneumonia. 3. Chronic findings including pulmonary emphysema, arteriosclerotic disease, and chronic bony findings. Code(s): J18.9 - PNEUMONIA, UNSPECIFIED ORGANISM (2) YASMEEN (acute kidney injury) Current Visit: Yes Status: Acute Assessment & Plan: -Hold ACEI, chlorthalidone, and diabetic medications for now. - IV fluids. - Monitor renal function. - Creat 1.30- baseline 1.10 - Donovan placed for urinary retention Code(s): N17.9 - ACUTE KIDNEY FAILURE, UNSPECIFIED (3) Liver mass Current Visit: Yes Status: Acute Assessment & Plan: - Will require outpatient workup. For ataxia, PT/OT eval/treat. Will obtain MRI brain due to concerns about potential intracranial metastasis. Code(s): R16.0 - HEPATOMEGALY, NOT ELSEWHERE CLASSIFIED (4) Diabetes mellitus with hyperglycemia Current Visit: No Status: Chronic Assessment & Plan: - Follow sugars on ISS., acucchecks ac/hs - Hold metformin and sulfonurea for now. Code(s): E11.65 - TYPE 2 DIABETES MELLITUS WITH HYPERGLYCEMIA (5) Urinary retention Current Visit: Yes Status: Acute Assessment & Plan: - bladder scan post void - Donovan place- 950 out - urinary retention seen on CT scan of Abd Impression: 1. Multiple hepatic hypodense lesions worrisome for metastasis. Also periaortic enlarged node possibly metastatic as well. 2. Markedly distended urinary bladder. Rule out outlet obstruction versus neurogenic bladder. 3. Chronic findings including enlarged prostate gland, right renal cyst, arteriosclerotic disease with distal AAA, and chronic bony findings. 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 Given recent CT findings, metastasis is of primary concern. Contrasted exam may yield further information. - Transfer to higher level of care. Code(s): G93.89 - OTHER SPECIFIED DISORDERS OF BRAIN - Discharge Discharge Date: 08/31/24 Disposition: XFER OTHER Condition: Fair Prescriptions: Continue Metformin HCl 500 mg [Glucophage 500 MG] 1,000 mg PO BIDWM Benazepril HCl [Lotensin] 20 mg PO HS Glipizide 5 mg [Glucotrol 5 MG] 10 mg PO BID Fenofibrate 160 mg PO DAILY Chlorthalidone 25 mg PO DAILY Clopidogrel Bisulfate [PLAVIX Tablet] 75 mg PO DAILY 30 Days #30 tablet Atorvastatin Calcium 10 mg PO DAILY Amlodipine Besylate/Benazepril [Amlodipine-Benazepril 5-20 mg] 1 tab PO DAILY Aspirin 81 mg PO DAILY Meclizine HCl 25 mg PO DAILY PRN PRN 7 Days #7 tab.chew PRN Reason: Dizziness Follow up with: ROXANNA STILL MD [Primary Care Provider] -
[2024-08-31] MEDS: ROCEPHIN 1 GM / 100 ML NaCl 1 GM/100 ML IVPB IV SCH (22:08)
[2024-08-31] MEDS: Zithromax 500 MG/ 250 ML NaCl Premix 500 MG/250 ML IVPB IV SCH (22:57)
[2024-09-01 04:49] LABS: Hematocrit 33.8 % (40.1-51.0); Hemoglobin 11.6 g/dL (13.7-17.5); Mean Cell Volume 84.1 fL (79.0-92.2); Mean Corpuscular Hemoglobin 28.9 pg (25.7-32.2); Mean Corpuscular Hgb Concent. 34.3 g/dL (32.3-36.5); Mean Platelet Volume 8.5 fL (9.4-12.4); Platelet Count 242 x10^3/uL (163-337); Red Blood Count 4.02 x10^6/uL (4.63-6.08); Red Cell Distribution Width 12.6 % (11.6-14.4); White Blood Count 6.1 x10^3/uL (4.23-9.07)
[2024-09-01 05:10] LABS: ALBUMIN 3.8 g/dL (3.5-5.0); ANION GAP 12.2 MEQ/L (5-15); BILIRUBIN,TOTAL 0.6 mg/dL (0.2-1.3); Calcium 9.9 mg/dL (8.4-10.2); Creatinine 1 1.19 mg/dL (0.66-1.25); EST GLOMERULAR FILTRATION RATE 64.5 ML/MIN; Potassium 3.8 mmol/L (3.5-5.1); Total Protein 7.1 g/dL (6.3-8.2)
--- NOTE | 2024-09-01 06:02 | PCM.NOTE ---
Date and Time: 09/01/24 0557 Subjective Assessment: is a 74 year old male with a pmhx of history of HTN, HLD, DMII, tobacco abuse, and COPD. Of note patient recently admitted with pneumonia from 08/16/24 -08/17/24 with pneumonia and discharged home on oral antibiotics. He reported having an ear infection several weeks ago and subsequent balance and unsteady gait.Currently the patient reported to ED 08/30/24 after a fall from his bed a few days prior with resultant back pain with radiation to his right lower abdominal quadrant. Also reports having epigastric/substernal chest pain which patient is recovering from pneumonia. Patient has no fever or chills. Denies any nausea or vomiting. Patient is scheduled for outpatient CT chest, stress test and MRI of the head. Pain in the lower back is moderate to severe sharp shooting, aggravated with ambulation and partial relief with being still. No radiation to lower extremities, no loss of bowel or bladder control. No numbness tingling or weakness of lower extremities, no saddle anesthesia. He states that he has not had any rectal bleeding or change in stool caliber. He has endorsed constipation for the past few weeks to months, with one hard stool every 1-2 days. His last colonoscopy was years ago, and he said that it was clear. In the ED, he was noted to have CT findings concerning for metastatic disease (liver masses and mediastinal lymphadenopathy). He has been notified by the ED and also by business account executive admitting provider, and is aware that this will require outpatient workup. Today he reports urinary hesitancy and bladder scan completed post void and > 500ml. Clark placed and there was 950ml urine output. MRI brain pending today. Continue antibiotics for pneumonia. Consider hospice care. He is currently denying any home needs. Will need OP f/u with oncology. Transfer to higher level of care is pending. 09/01/24: Met with patient bedside. No complaints this morning. Discussed CT/MRI findings. Will start decadron 4mg q6h for brain edema/mass. Transfer is pending bed availability, most recent update stating possibly tonight. Will continue abx with the addition of steroids. Patient agreeable to plan. - Review of Systems Constitutional: Weakness Eyes: No Symptoms Ears, Nose, & Throat: No Symptoms Respiratory: Cough Cardiac: No Symptoms Abdominal/Gastrointestinal: No Symptoms Genitourinary Symptoms: No Symptoms Musculoskeletal: No Symptoms Skin: No Symptoms Neurological: No Symptoms Psychological: No Symptoms Endocrine: No Symptoms Hematologic/Lymphatic: No Symptoms Immunological/Allergic: No Symptoms Objective Exam General Appearance: no apparent distress Neurologic Exam: alert, oriented x 3, cooperative Skin Exam: normal color Eye Exam: PERRL Ears, Nose, Throat Exam: normal ENT inspection Neck Exam: normal inspection Respiratory Exam: crackles/rales Cardiovascular Exam: regular rate/rhythm, normal heart sounds Gastrointestinal/Abdomen Exam: soft, normal bowel sounds Extremity Exam: normal inspection Back Exam: normal inspection Male Genitalia Exam: deferred Rectal Exam: deferred Objective Data Vital Signs: Vital Signs - 24 hr Temp Pulse Resp BP Pulse Ox 09/01/24 04:00 97.7 F 69 16 113/56 95 08/31/24 23:34 97.0 F 75 17 120/61 94 L 08/31/24 20:00 99.5 F 78 24 112/53 93 L 08/31/24 18:25 77 20 92 L 08/31/24 16:00 97 F 75 16 119/57 92 L 08/31/24 11:24 96.3 F 67 16 122/57 92 L 08/31/24 08:22 87 16 92 L 08/31/24 07:21 97.3 F 71 16 111/53 91 L Pain Assessment - Last Documented Pain Intensity 0 Pain Scale Used 0-10 Pain Scale Intake and Output: Intake & Output 08/29/24 08/30/24 08/31/24 09/01/24 11:59 11:59 11:59 11:59 Intake Total 500 920 Output Total 930 1850 Balance -430 -930 Weight 68.7 kg Lab Results: Lab Results-Last 24 Hours 08/31/24 08/31/24 08/31/24 Range/Units 07:11 11:01 16:16 WBC (4.23-9.07) x10^3/uL RBC (4.63-6.08) x10^6/uL Hgb (13.7-17.5) g/dL Hct (40.1-51.0) % MCV (79.0-92.2) fL MCH (25.7-32.2) pg MCHC (32.3-36.5) g/dL RDW (11.6-14.4) % Plt Count (163-337) x10^3/uL MPV (9.4-12.4) fL Sodium (135-145) mmol/L Potassium (3.5-5.1) mmol/L Chloride (98-107) mmol/L Carbon Dioxide (22-30) mmol/L Anion Gap (5-15) MEQ/L BUN (9-20) mg/dL Creatinine (0.66-1.25) mg/dL Estimated GFR ML/MIN Glucose (74-106) mg/dL POC Glucometer 114 H 129 H 147 H (74 to 106) mg/dL Calcium (8.4-10.2) mg/dL Total Bilirubin (0.2-1.3) mg/dL AST (17-59) U/L ALT (0-50) U/L Alkaline Phosphatase (38-126) U/L Serum Total Protein (6.3-8.2) g/dL Albumin (3.5-5.0) g/dL 08/31/24 09/01/24 09/01/24 Range/Units 21:58 04:23 04:23 WBC 6.1 (4.23-9.07) x10^3/uL RBC 4.02 L (4.63-6.08) x10^6/uL Hgb 11.6 L (13.7-17.5) g/dL Hct 33.8 L (40.1-51.0) % MCV 84.1 (79.0-92.2) fL MCH 28.9 (25.7-32.2) pg MCHC 34.3 (32.3-36.5) g/dL RDW 12.6 (11.6-14.4) % Plt Count 242 (163-337) x10^3/uL MPV 8.5 L (9.4-12.4) fL Sodium 136 (135-145) mmol/L Potassium 3.8 (3.5-5.1) mmol/L Chloride 102 (98-107) mmol/L Carbon Dioxide 26 (22-30) mmol/L Anion Gap 12.2 (5-15) MEQ/L BUN 30 H (9-20) mg/dL Creatinine 1.19 (0.66-1.25) mg/dL Estimated GFR 64.5 ML/MIN Glucose 134 H (74-106) mg/dL POC Glucometer 124 H (74 to 106) mg/dL Calcium 9.9 (8.4-10.2) mg/dL Total Bilirubin 0.60 (0.2-1.3) mg/dL AST 79 H (17-59) U/L ALT 23 (0-50) U/L Alkaline Phosphatase 72 (38-126) U/L Serum Total Protein 7.1 (6.3-8.2) g/dL Albumin 3.8 (3.5-5.0) g/dL Radiology Exams: Radiology Procedures Category Date Time Status ABDOMEN AND PELVIS W/0 CONTRAS [CT] Stat Exams 08/30/24 17:46 Completed CHEST WITHOUT CONTRAST [CT] Stat Exams 08/30/24 17:46 Completed MRI BRAIN W/O CONTRAST [MRI] Routine Exams 08/31/24 21:31 Completed Multi-Disciplinary Progress Notes: Multi-Disciplinary Progress Notes 08/31/24 17:07 OT Plan of Care Note by Merlene ([id number])Mandy OT Eval OT Inpatient Eval and POC Start: 08/30/24 21:33 Freq: ONCE Status: Complete Protocol: Created 08/30/24 21:36 PS (Rec: 08/30/24 21:36 PS [id number]) Document 08/31/24 16:51 KA (Rec: 08/31/24 17:05 KA [id number]) OT Evaluation Subjective SHWANA IS AGREEABLE TO OT EVALUATION. HIS TWO SISTERS WERE IN THE ROOM AND HE WAS AGREEABLE FOR THEM TO BE PRESENT. Pertinent Past Medical History CURRENT ADMISSION: PNEUMONIA, GENERALIZED WEAKNESS, DISTENDED BLADDER. MRI BRAIN WITHOUT CONTRAST: NEW LEFT CEREBELLUM MASS WITH VASOGENIC EDEMA AND MASS EFFECT. ABDOMINAL CT: 1. Multiple hepatic hypodense lesions worrisome for metastasis. Also periaortic enlarged node possibly metastatic as well. 2. Markedly distended urinary bladder. Rule out outlet obstruction versus neurogenic bladder. 3. Chronic findings including enlarged prostate gland, right renal cyst, arteriosclerotic disease with distal AAA, and chronic bony findings. CLARK CATHETER PRESENT. Prior Level of Function PATIENT LIVES ALONE IN SINGLE STORY HOME, 3 STEPS TO ENTER, AND STATES THAT [place]. SHAWNA STATES THAT HIS HOME IS HANDICAP ACCESSIBLE. 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 HIS SISTERS VERIFY THAT IN THE PAST 2 WEEKS HE HAS BECOME SIGNIFICANTLY UNSTABLE, FALLS INTO FURNITURE, WEAKNESS, SLURRED SPEECH, AND IRRITABILITY. HE REPORTS ONLY BATHING AND CHANGING HIS CLOTHES EVERY OTHER DAY DUE TO THE WEAKNESS. Equipment at Home Prior to Admission Special Bed,Raised Toilet Seat ,Toilet Saftey Rails,Shower Chair Home Setup [id number],Elevated Height Toilet,Stairs Date 08/31/24 Feeding WFL Comment SET UP ASSIST Grooming Impaired Comment MIN ASSIST Bathing Impaired Comment MOD ASSIST Dressing Impaired Comment UB: MIN ASSIST LB: MOD ASSIST Toileting Impaired Comment MIN ASSIST Bed Mobility Impaired Comment MIN ASSIST Toilet Transfers Impaired Comment SBA Functional Transfers Impaired Comment SBA Range of Motion WFL Coordination IMPAIREMENTS WITH FINGER TO THUMB ON LEFT SIDE, IMPAIRED RYAN WITH LEFT UE, IMPAIRED FINGER TO NOSE ASSESSMENT. Functional Strength RIGHT UE: FLEXION, ABDUCTION, EXTENSION, ER, AND IR: 4-/5 MMT ELBOW FLEXION: 4/5 MMT ELBOW EXTENSION:4/5 RIGHT EGG SEPARATOR STRENGTH: 4/5 LEFT UE: SHOULDER FLEXION, EXT, ABD, ER , AND IR: 4-/5 ELBOW FLEX AND EXT: 4/5 LEFT EGG SEPARATOR STRENGTH: 4-/5 Functional Endurance FAIR (-): PATIENT OBSERVED WITH SIGNIFICANT SHORTNESS OF BREATH AND FATIGUE FOLLOWING LB DRESSING TASK AND APPROXIMATELY 20 FEET OF FUNCTIONAL MOBILITY IN ROOM. HE REPORTS FEELING "EXTREMELY EXHAUSTED WITH ALL ACTIVITY". Cognition ALERT AND ORIENTED X 3; HE IS NOTED WITH INTERMITTENT CONFUSION REGARDING HIS MEDICAL CARE THE PAST 2 WEEKS (OT REFERRED TO NURSING STAFF AND HEATING AND COOLING TECHNICIAN REGARDING HIS CONFUSION AND QUESTIONS). HE IS OBSERVED WITH SLURRED SPEECH THE MORE HE WOULD TALK. HIS SISTER STATES THAT IT HAS WORSENED IN PAST WEEK. Pain LOWER BACK PAIN (5/10 DURING BED MOBILITY) Objective Data/Standardized Assessment(s PATIENT PRESENTS WITH ) INCREASED ATAXIC MOVEMENT IN LEFT UE WITH OVER AND UNDERSHOOTING MIDLINE TO RETRIEVE OBJECTS; LIMITED HAND DEXTERITY TO MANAGE DRINKS, FOOD, AND HIS PHONE. PATIENT REPORTS SIGNIFICANT DIFFICULTY WITH DRESSING AT HOME DUE TO LEFT UE COORDINATION DEFICITS. HE IS RIGHT HAND DOMINANT. Comment VELEZ: 2/6 INDICATING HIGHER LEVEL OF DEPENDENCE FOR ADLS. 2 MINUTES S/P ACTIVITY: O2 SAT 95% AND HR 74 BPM OT Plan Of Care Date of Evaluation 08/31/24 Treatment Diagnosis PNEUMONIA, GENERALIZED WEAKNESS, DISTENDED BLADDER Precaution/Orders as written FALL RISK Teaching Recipient Patient Patient is Aware of Diagnosis and Yes Prognosis Patient is receptive to Plan of Care and Yes contributory towards OT goals Functional Problem List SHAWNA PRESENTS WITH LEFT UE COORDINATION IMPAIRMENTS, SIGNIFICANT WEAKNESS, DECREASED ACTIVITY TOLERANCE, SLURRED SPEECH, POOR SAFETY INSIGHT, INSTABILITY, AND LOWER BACK PAIN LIMITING INDEPENDENCE WITH I/ADLS AND QUALITY OF LIFE. Therapuetic Interventions ADLS, THERAPEUTC EXERCISE, THERAPEUTIC ACTIVITY, NEURO RE -ED. Functional Goals of Treatment 1. WITHIN 1 WEEK, PATIENT AND FAMILY WITH DEMONSTRATE INDEPENDENCE WITH HEP, ACTIVITY MODIFICATIONS, DME RECOMMENDATIONS, AND ALL DISCHARGE RECOMMENDATIONS IN ORDER TO FACILITATE SAFE D/C. 2. WITHIN 1 WEEK, PATIENT WILL COMPELTE BASIC ADLS WITH SBA IN ORDER TO FACILITATE SAFE D/ C. Frequency/Duration 5X/WEEK Rehabilitation Potential for Goals/ Guarded Barriers to Progress Discharge Recommendations/Plan RECOMMENDATION PENDING FURTHER DIAGNOSIS; HOWEVER, PATIENT MAY BENEFIT FROM PALLIATIVE CARE VS. HOSPICE. OT RECOMMENDS 19/04 SUPERVISION UPON RETURN HOME DUE TO CURRENT DEFICITS. 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 Past Surgical History No Hx Anesthesia Reactions No Hx Malignant Hyperthermia No Neurological Surgical History No Pertinent History ENT Surgical History No Pertinent History Respiratory Surgical History No Pertinent History Cardiac Surgical History No Pertinent History Gastrointestinal Surgical History No Pertinent History Genitourinary Surgical History No Pertinent History Male Surgical History No Pertinent History Musculoskeletal Surgical History No Pertinent History Other Surgical History colonoscopy Alcohol None Drug Use none Hx Substance Use Treatment No Initialized on 08/31/24 17:07 - END OF NOTE Assessment/Plan (1) Pneumonia Current Visit: Yes Status: Acute Assessment & Plan: - CT chest reviewed demonstrating bulky mediastinal and right perihilar lymphadenopathy with mass effect as detailed. Rule out primary versus metastatic malignancy. Right upper lobe patchy interstitial alveolar opacities, possibly pneumonitis/pneumonia. - Tele - Continue Rocephin/azithromycin - At baseline RA - CBC, CMP reviewed - PT eval Code(s): J18.9 - PNEUMONIA, UNSPECIFIED ORGANISM (2) YASMEEN (acute kidney injury) Current Visit: Yes Status: Acute Assessment & Plan: -Hold ACEI/ARB/NSAIDS - currently holding home meds- chlorthalidone, and diabetic medications - - Monitor renal/lytes daily - Creat reviewed baseline 1.10 - now at 1.19 - continue to trend - Clark placed for urinary retention Code(s): N17.9 - ACUTE KIDNEY FAILURE, UNSPECIFIED (3) Liver mass Current Visit: Yes Status: Acute Assessment & Plan: - Will require outpatient workup. For ataxia, PT/OT eval/treat -MRI showing New left cerebellum mass with vasogenic edema and mass effect as detailed. Given recent CT findings, metastasis is of primary concern. -transfer to higher level of care initiated - pending bed availability Code(s): R16.0 - HEPATOMEGALY, NOT ELSEWHERE CLASSIFIED (4) Urinary retention Current Visit: Yes Status: Acute Assessment & Plan: -CT abdomen demonstrates markedly distended urinary bladder. Chronic findings including enlarged prostate gland - bladder scan post void reviewed from 08/31 showing 792ml residual -Clark placed Code(s): R33.9 - RETENTION OF URINE, UNSPECIFIED (5) Diabetes mellitus with hyperglycemia Current Visit: No Status: Chronic Assessment & Plan: - SSI -acucchetyrell ac/hs - Hold metformin and sulfonurea during hospitalization VTE: Plavix PPI: Protonix Next of KIN: Payton, Ida Valdes, D/C plan: 1-2 days Code status: Full Code(s): E11.65 - TYPE 2 DIABETES MELLITUS WITH HYPERGLYCEMIA (6) Mass of cerebellum Current Visit: Yes Status: Acute Assessment & Plan: -Start decadron 4mg Q6h -transfer pending Code(s): G93.89 - OTHER SPECIFIED DISORDERS OF BRAIN
[2024-09-01] MEDS: Protonix 20MG Tablet PO SCH (10:13)
[2024-09-01] MEDS: Decadron 4 MG INJ IV SCH (16:32)
--- NOTE | 2024-09-01 16:58 | PCM.DS ---
Discharge Summary Date of Admission: 08/30/24 21:05 Date of Discharge: 08/31/24 Admitting Physician: CONTRERAS BARNES MD Primary Care Provider: ROXANNA STILL Allergies Allergies No Known Drug Allergies Allergy (Verified 08/30/24 15:42) Hospital Summary - Hospital Course Hospital Course: is a 74 year old male with a pmhx of history of HTN, HLD, DMII, tobacco abuse, and COPD. Of note patient recently admitted with pneumonia from 08/16/24 -08/17/24 with pneumonia and discharged home on oral antibiotics. He reported having an ear infection several weeks ago and subsequent balance and unsteady gait.Currently the patient reported to ED 08/30/24 after a fall from his bed a few days prior with resultant back pain with radiation to his right lower abdominal quadrant. Also reports having epigastric/substernal chest pain which patient is recovering from pneumonia. Patient has no fever or chills. Denies any nausea or vomiting. Patient is scheduled for outpatient CT chest, stress test and MRI of the head. Pain in the lower back is moderate to severe sharp shooting, aggravated with ambulation and partial relief with being still. No radiation to lower extremities, no loss of bowel or bladder control. No numbness tingling or weakness of lower extremities, no saddle anesthesia. He states that he has not had any rectal bleeding or change in stool caliber. He has endorsed constipation for the past few weeks to months, with one hard stool every 1-2 days. His last colonoscopy was years ago, and he said that it was clear. In the ED, he was noted to have CT findings concerning for metastatic disease (liver masses and mediastinal lymphadenopathy). He has been notified by the ED and also by night auditor admitting provider, and is aware that this will require outpatient workup. Today he reports urinary hesitancy and bladder scan completed post void and > 500ml. Donovan placed and there was 950ml urine output. MRI brain pending today. Continue antibiotics for pneumonia. Consider hospice care. He is currently denying any home needs. Will need OP f/u with oncology. Transfer to higher level of care is pending. 09/01/24: Met with patient bedside. No complaints this morning. Discussed CT/MRI findings. Will start decadron 4mg q6h for brain edema/mass. Transfer is pending bed availability, most recent update stating possibly tonight. Will continue abx with the addition of steroids. Patient agreeable to plan. Discharge Note Latest Assessment & Plan (1) Pneumonia Current Visit: Yes Status: Acute Assessment & Plan: - CT chest reviewed demonstrating bulky mediastinal and right perihilar lymphade nopathy with mass effect as detailed. Rule out primary versus metastatic malignancy. Right upper lobe patchy interstitial alveolar opacities, possibly pneumonitis/pneumonia. - Tele - Continue Rocephin/azithromycin - At baseline RA - CBC, CMP reviewed - PT eval Code(s): J18.9 - PNEUMONIA, UNSPECIFIED ORGANISM (2) YASMEEN (acute kidney injury) Current Visit: Yes Status: Acute Assessment & Plan: -Hold ACEI/ARB/NSAIDS - currently holding home meds- chlorthalidone, and diabetic medications - - Monitor renal/lytes daily - Creat reviewed baseline 1.10 - now at 1.19 - continue to trend - Donovan placed for urinary retention Code(s): N17.9 - ACUTE KIDNEY FAILURE, UNSPECIFIED (3) Liver mass Current Visit: Yes Status: Acute Assessment & Plan: - Will require outpatient workup. For ataxia, PT/OT eval/treat -MRI showing New left cerebellum mass with vasogenic edema and mass effect as detailed. Given recent CT findings, metastasis is of primary concern. -transfer to higher level of care initiated - pending bed availability Code(s): R16.0 - HEPATOMEGALY, NOT ELSEWHERE CLASSIFIED (4) Urinary retention Current Visit: Yes Status: Acute Assessment & Plan: -CT abdomen demonstrates markedly distended urinary bladder. Chronic findings including enlarged prostate gland - bladder scan post void reviewed from 08/31 showing 792ml residual -Donovan placed Code(s): R33.9 - RETENTION OF URINE, UNSPECIFIED (5) Diabetes mellitus with hyperglycemia Current Visit: No Status: Chronic Assessment & Plan: - SSI -acucchetyrell ac/hs - Hold metformin and sulfonurea during hospitalization I spent 35 minutes [id number] with the patient on the day of discharge performing discharge exam, discussing hospital stay and discharge instructions with patient and caregivers, preparation of discharge records, prescriptions & referral forms and addressing any questions/concerns the patient had as documented above. - Vitals & Intake/Output Vital Signs: Vital Signs Temperature 98 F 09/01/24 16:00 Pulse Rate 78 09/01/24 16:00 Respiratory Rate 17 09/01/24 16:00 Blood Pressure 105/51 09/01/24 16:00 O2 Sat by Pulse Oximetry 94 L 09/01/24 16:00 Intake & Output: Intake & Output 08/30/24 08/31/24 09/01/24 09/02/24 11:59 11:59 11:59 11:59 Intake Total 500 1040 120 Output Total 930 1850 950 Balance -430 -810 -830 Weight 68.7 kg - Lab Result Diagrams: 09/01/24 04:23 09/01/24 04:23 Lab Results-Last 24 Hrs: Lab Results-Last 24 Hours 08/31/24 09/01/24 09/01/24 Range/Units 21:58 04:23 04:23 WBC 6.1 (4.23-9.07) x10^3/uL RBC 4.02 L (4.63-6.08) x10^6/uL Hgb 11.6 L (13.7-17.5) g/dL Hct 33.8 L (40.1-51.0) % MCV 84.1 (79.0-92.2) fL MCH 28.9 (25.7-32.2) pg MCHC 34.3 (32.3-36.5) g/dL RDW 12.6 (11.6-14.4) % Plt Count 242 (163-337) x10^3/uL MPV 8.5 L (9.4-12.4) fL Sodium 136 (135-145) mmol/L Potassium 3.8 (3.5-5.1) mmol/L Chloride 102 (98-107) mmol/L Carbon Dioxide 26 (22-30) mmol/L Anion Gap 12.2 (5-15) MEQ/L BUN 30 H (9-20) mg/dL Creatinine 1.19 (0.66-1.25) mg/dL Estimated GFR 64.5 ML/MIN Glucose 134 H (74-106) mg/dL POC Glucometer 124 H (74 to 106) mg/dL Calcium 9.9 (8.4-10.2) mg/dL Total Bilirubin 0.60 (0.2-1.3) mg/dL AST 79 H (17-59) U/L ALT 23 (0-50) U/L Alkaline Phosphatase 72 (38-126) U/L Serum Total Protein 7.1 (6.3-8.2) g/dL Albumin 3.8 (3.5-5.0) g/dL 09/01/24 09/01/24 09/01/24 Range/Units 07:36 12:04 16:13 WBC (4.23-9.07) x10^3/uL RBC (4.63-6.08) x10^6/uL Hgb (13.7-17.5) g/dL Hct (40.1-51.0) % MCV (79.0-92.2) fL MCH (25.7-32.2) pg MCHC (32.3-36.5) g/dL RDW (11.6-14.4) % Plt Count (163-337) x10^3/uL MPV (9.4-12.4) fL Sodium (135-145) mmol/L Potassium (3.5-5.1) mmol/L Chloride (98-107) mmol/L Carbon Dioxide (22-30) mmol/L Anion Gap (5-15) MEQ/L BUN (9-20) mg/dL Creatinine (0.66-1.25) mg/dL Estimated GFR ML/MIN Glucose (74-106) mg/dL POC Glucometer 130 H 143 H 160 H (74 to 106) mg/dL Calcium (8.4-10.2) mg/dL Total Bilirubin (0.2-1.3) mg/dL AST (17-59) U/L ALT (0-50) U/L Alkaline Phosphatase (38-126) U/L Serum Total Protein (6.3-8.2) g/dL Albumin (3.5-5.0) g/dL Micro Results-Entire Visit: Microbiology 08/31/24 11:55 Urine Culture - Preliminary Urine, Indwelling Catheter NO GROWTH TO DATE 08/30/24 20:36 Blood Culture - Preliminary Blood 08/30/24 20:32 Blood Culture - Preliminary Blood Accuchecks Date 09/01/24 Date 09/01/24 Date 09/01/24 Time 16:45 Time 12:38 Time 07:45 - Radiology Exams Ordered Rad Exams-Entire Visit: Radiology Procedures Category Date Time Status ABDOMEN AND PELVIS W/0 CONTRAS [CT] Stat Exams 08/30/24 17:46 Completed CHEST WITHOUT CONTRAST [CT] Stat Exams 08/30/24 17:46 Completed MRI BRAIN W/O CONTRAST [MRI] Routine Exams 08/31/24 21:31 Completed - Procedures and Test Procedures and Tests throughout Hospitalization: Therapy Orders & Screens 08/30/24 21:33 PT Eval & Treat ( Order) ONCE Reason for Eval:: ataxia Diagnosis: Pneumonia, generalized weakness, distended bladder OT Eval and Treat (MD Order) ONCE Comment: Physician Instructions: Reason For Exam: Diagnosis: Pneumonia, generalized weakness, distended bladder 08/30/24 22:51 Oxygen Nasal Cannula 2 lpm Comment: Diagnosis: Pneumonia, generalized weakness, distended bladder Respiratory Therapy Assessment DAILY Comment: Diagnosis: Pneumonia, generalized weakness, distended bladder Discharge Exam General Appearance: no apparent distress Neurologic Exam: alert, oriented x 3, cooperative Eye Exam: PERRL Ears, Nose, Throat Exam: normal ENT inspection Neck Exam: normal inspection Respiratory Exam: crackles/rales Cardiovascular Exam: regular rate/rhythm, normal heart sounds Gastrointestinal/Abdomen Exam: soft, normal bowel sounds Male Genitalia Exam: deferred Rectal Exam: deferred Extremity Exam: normal inspection Skin Exam: pale Final Diagnosis/Problem List - Final Discharge Diagnosis/Problem (1) Pneumonia Current Visit: Yes Status: Acute Code(s): J18.9 - PNEUMONIA, UNSPECIFIED ORGANISM (2) YASMEEN (acute kidney injury) Current Visit: Yes Status: Acute Code(s): N17.9 - ACUTE KIDNEY FAILURE, UNSPECIFIED (3) Liver mass Current Visit: Yes Status: Acute Code(s): R16.0 - HEPATOMEGALY, NOT ELSEWHERE CLASSIFIED (4) Urinary retention Current Visit: Yes Status: Acute Code(s): R33.9 - RETENTION OF URINE, UNSPECIFIED (5) Diabetes mellitus with hyperglycemia Current Visit: No Status: Chronic Code(s): E11.65 - TYPE 2 DIABETES MELLITUS WITH HYPERGLYCEMIA (6) Mass of cerebellum Current Visit: Yes Status: Acute Code(s): G93.89 - OTHER SPECIFIED DISORDERS OF BRAIN - Discharge Discharge Date: 09/01/24 Disposition: DC TO OTHER HOSP Condition: Fair Prescriptions: New Dexamethasone 4 mg [Decadron 4 MG INJ] 4 mg IV Q6HT Continue Metformin HCl 500 mg [Glucophage 500 MG] 1,000 mg PO BIDWM Benazepril HCl [Lotensin] 20 mg PO HS Glipizide 5 mg [Glucotrol 5 MG] 10 mg PO BID Fenofibrate 160 mg PO DAILY Chlorthalidone 25 mg PO DAILY Clopidogrel Bisulfate [PLAVIX Tablet] 75 mg PO DAILY 30 Days #30 tablet Atorvastatin Calcium 10 mg PO DAILY Amlodipine Besylate/Benazepril [Amlodipine-Benazepril 5-20 mg] 1 tab PO DAILY Aspirin 81 mg PO DAILY Meclizine HCl 25 mg PO DAILY PRN PRN 7 Days #7 tab.chew PRN Reason: Dizziness Follow up with: ROXANNA STILL MD [Primary Care Provider] -
[2024-09-01 19:48] VITALS: BP 109/57; PULSE 76; RESP 16; TEMP 98.6; O2SAT 94
[2024-09-02 18:41] LABS: PSA, Free 0.32 ng/mL; Prostate Specific Ag 2.2 ng/mL (0.0-4.0)
== END 2024-09-01 21:25 ==
LOC: ED 14:56 → MED SURG 21:05
PROVIDERS: ADMIT Internal Medicine; ATTEND Internal Medicine
DX: J18.9 Pneumonia, unspecified organism (principal); N17.9 Acute kidney failure, unspecified; R16.0 Hepatomegaly, not elsewhere classified; E11.65 Type 2 diabetes mellitus with hyperglycemia; R33.9 Retention of urine, unspecified; G93.89 Other specified disorders of brain; I10 Essential (primary) hypertension; E78.5 Hyperlipidemia, unspecified; F17.200 Nicotine dependence, unspecified, uncomplicated; J44.9 Chronic obstructive pulmonary disease, unspecified; W19.XXXA Unspecified fall, initial encounter; Z79.899 Other long term (current) drug therapy
CPT/HCPCS: 36415; 70551; 71250; 74176; 80053; 81001; 82947; 83605; 83690; 84153; 84154; 84484; 85025; 85027; 87040; 87086; 93005; 94760; 96360; 96374; 96375; 97163; 97166; 99285; Q3014; J0456; J0696; J1100; J1650; J2270; J2405; A9270-GY